=== PATIENT | female | born 1975 | race Caucasian/White ===

== ENCOUNTER 2021-12-30 09:03 | Emergency (ER) | payer MEDICAID, SELFPAY ==
[2021-12-30] VITALS (8 sets, daily range): BP systolic 178–236; BP diastolic 102–139; PULSE 93–114; RESP 15–18; TEMP 36.9–37.6; O2SAT 95–97; BMI 45.7
[2021-12-30 09:46] LABS: Add Urine Microscopic? NO; Charge for UA Resulting for Rev
[2021-12-30 09:52] LABS: Bilirubin Urine Neg (Negative); Blood Urine Neg (Negative); Glucose Urine UA Trace (Normal); Ketones Urine Negative (Negative); Leukocyte Esterase Urine Negative (Negative); Nitrate Urine Negative (Negative); Protein Urine Neg (Negative); Specific Gravity, Urine 1.005 (1.005-1.030); Urine Appearance Clear (CLEAR); Urine Color Yellow (Yellow); Urobilinogen Urine Neg (Negative); pH Urine 7 (5-7)
[2021-12-30 09:58] LABS: Amphetamines Screen Urine Negative (Negative); Barbiturates Screen Urine Negative (Negative); Benzodiazepines Screen Urine Negative (Negative); Cocaine Screen Urine Negative (Negative); Opiate Screen Urine Positive (Negative); PCP Screen Urine Negative (Negative); THC Screen Urine Negative (Negative)
--- NOTE | 2021-12-30 11:45 | W.ED.GENADLT ---
HPI - General Adult General: Chief complaint: General Medical Stated complaint: Sent from clinic for high blood pressure Time Seen by Provider: 12/30/21 11:22 History of Present Illness: Patient is a 46-year-old female with chronic opiate dependence currently on methadone presenting to the emergency room from [facility] clinic for concerns of elevated blood pressure. She was at the clinic getting intake when her blood pressure was noted to be over 240/130. Patient was then told to come to the emergency room. Patient tells me that previously she has a history of high blood pressure. 4-5 years ago Patient has not been taking any medications for her blood pressure. Patient tells me that she was diagnosed 3 years ago. Since then has not been taking any medicine. Patient denies any active chest pain, shortness breath, palpitation, nausea/vomiting fever/chills, or other focal complaints. Denies nauesea/vomiting, abdominal pain, dysuria/hematuria/polyuria, diarrhea/melena/hematochezia. Onset:chronic Duration:ongoing Location: [facility] clinic Severity:mild/moderaet Associated symptoms: Deny chest pain, dyspnea, nausea, rash, palpitations or vomiting Review of Systems Const: Denies: fever(s) or chills Eyes: Denies: change in vision ENMT: Denies: mouth pain Card: Denies: chest pain or palpitations Resp: Denies: dyspnea or non-productive cough GI: Denies: abdominal pain, nausea, vomiting or diarrhea : Denies: dysuria Musc: Denies: extremity pain Skin/Breast: Denies: rash or new lesions Neuro: Denies: weakness in extremities Psych: Reports: other (Normal mood) Abilio/Lymph: Denies: easy bruising PFSH ED PFSH: Medical History Hypertension Opiate dependence Social History Smoking and tobacco status: current every day smoker Alcohol intake: former Substance/Drug Use: unknown Physical Exam Const: COMMON NORMALS: alert HENMT: COMMON NORMALS: atraumatic HEAD & SCALP: atraumatic MOUTH: moist mucous membranes not abnormal Eye: COMMON NORMALS: EOMs intact bilaterally and conjunctivae normal CONJUNCTIVA: Yes conjunctivae normal Neck/C-Spine: COMMON NORMALS: full ROM and supple Resp: COMMON NORMALS: normal respiratory effort and clear to auscultation bilaterally AUSCULTATION: clear to auscultation bilaterally Cardio: COMMON NORMALS: regular rate RATE: regular rate GI: COMMON NORMALS: Soft to palpation and non-tender PALPATION: Yes Soft to palpation OTHER: No pain to palpation diffusely, no guarding or rebound tenderness Extremity: COMMON NORMALS: full ROM Neuro: SENSORIUM/ORIENTATION: Yes alert MOTOR EXAM: No Abnormal motor strength present and Other motor observations present (no focal motor deficits) Psych: COMMON NORMALS: speech normal SPEECH: Yes normal speech MOOD & AFFECT: Yes euthymic mood Course Vital Signs: Vital signs: Vital Signs Temperature 99.7 F H 12/30/21 09:16 Pulse Rate 104 H 12/30/21 14:15 Respiratory Rate 17 12/30/21 14:15 Blood Pressure 178/102 12/30/21 14:15 Pulse Oximetry 97 12/30/21 14:15 Oxygen Delivery Me thod 12/30/21 14:15 MDM - General Adult Medical Decision Making [46]yo patient w/ hx of opiate dependence, HTN not on any medications presenting to the ED with high BP readings x 1 day in clinic. Rest of exam including full neuro exam intact. Given presentation, history and exam, I do not suspect aortic dissection, hypertensive encephalopathy, intracranial hemorrhage, ACS, TIA/CVA, flash pulmonary edema. Intervention: Nifedipine 60mg x 1 and amlodipine 10mg [1:00pm] On reassessment, BP improved with medication. Patient continues to be symptom-free at this time. Do not suspect an emergent cause. Discussed with the patient the importance of logging BPs and following up with his PCP for adjustment of BP if BP continues to be persistently high. Given return instructions. Rx: Amlodipine 10mg QDaily PRN elevated BP I have given patient follow up with our embedded case manager to be seen by our outpatient PCP per request of patient. Patient aware of a call from our embedded case manager to schedule for appointment(s) and verbalizes understanding of the importance of following up. Based on history, exam, vital signs, and work up (as indicated) I do not suspect an ongoing emergent medical condition, and I believe the patient is safe for discharge and outpatient follow-up. The plan of care was discussed with the patient and all questions were answered. The patient agrees with the plan of care and is discharged in stable condition with verbal and written instructions, and verbalized understanding and ability to comply. I discussed the diagnosis and treatment plan at length with the patient. The patient understands signs and symptoms (including those which are new or worsening) which should prompt return to the ED. The patient is to seek prompt outpatient follow-up as noted verbally and/or in the discharge instructions. At the time of discharge the patient is well-appearing, well-hydrated, non-toxic, and assures appropriate follow-up as an outpatient. Lab Data Laboratory Results Urine Color Yellow (Yellow) 12/30/21 09:20 Urine Appearance Clear (CLEAR) 12/30/21 09:20 Urine pH 7 (5-7) 12/30/21 09:20 Ur Specific [place] 1.005 (1.005-1.030) 12/30/21 09:20 Urine Protein Neg (Negative) 12/30/21 09:20 Urine Glucose (UA) Trace (Normal) H 12/30/21 09:20 Urine Ketones Negative (Negative) 12/30/21 09:20 Urine Blood Neg (Negative) 12/30/21 09:20 Urine Nitrate Negative (Negative) 12/30/21 09:20 Urine Bilirubin Neg (Negative) 12/30/21 09:20 Urine Urobilinogen Neg mg/dL (Negative) 12/30/21 09:20 Ur Leukocyte Esterase Negative (Negative) 12/30/21 09:20 Urine Opiates Screen Positive ng/mL (Negative) H 12/30/21 09:20 Ur Barbiturates Screen Negative ng/mL (Negative) 12/30/21 09:20 Ur Phencyclidine Scrn Negative ng/mL (Negative) 12/30/21 09:20 Ur Amphetamines Screen Negative ng/mL (Negative) 12/30/21 09:20 U Benzodiazepines Scrn Negative ng/mL (Negative) 12/30/21 09:20 Urine Cocaine Screen Negative ng/mL (Negative) 12/30/21 09:20 U Marijuana (THC) Screen Negative ng/mL (Negative) 12/30/21 09:20 Discharge Plan Discharge Patient Disposition: Home Clinical Impression: Hypertension Condition: Stable Prescriptions: New amlodipine 10 mg tablet 10 mg PO DAILY 20 Days Qty: 20 0RF No Action methadone 10 mg Tablet 30 mg PO DAILY Discharge Orders: Discharge ED (Routine); Ordered 12/30/21 Ordered By: Marquis Blanchard Referrals: Gerardo Coon MD [Primary Care Provider] - Discharge Diet: Advance as tolerated Discharge Activity: Increase activity as tolerated Activity Restrictions/Additional Instructions: You need to follow-up with your primary care provider for further adjustment of your blood pressure. Your blood pressure puts you at risk for developing strokes and heart attack. Therefore it is very important for you to follow-up with this number to see if the numbers improve gradually. Because blood pressure adjustment is a gradual process, were not able to change it in 1 visit. Therefore please log your blood pressure and follow-up with your primary care provider in the next 72 hours for further adjustment of your blood pressures. Coding Level of Care Code ED Entrance Guard for yCg Fwd Exam Comprehensive
[2021-12-30] MEDS: amlodipine 10 mg Tablet PO (11:53)
[2021-12-30] MEDS: NIFEdipine ER (24 hr) 30 mg Tablet 60 MG PO (11:53)
[2021-12-30] MEDS: hyDRALAzine 25 mg Tablet PO (13:14)
[2021-12-30] MEDS: cloNIDine 0.1 mg Tablet PO (13:15)
[2021-12-30] MEDS: NIFEdipine ER (24 hr) 30 mg Tablet 90 MG PO (13:15)
--- NOTE | 2021-12-31 10:42 | DCPLANNER ---
Addendum entered by Kimberli Moreira 01/06/22 10:02: [facility] called case resource manager stating that after review of patients chart, the physician is unable to accept patient at this time. financial institution manager called patient to inform patient of this, unable to speak with patient at this time. financial institution manager left a voicemail for patient to return manager case management phone call. Original Note: financial institution manager had message to speak with patient about getting established with a primary care physician. financial institution manager spoke with patient, she stated that she would like to be seen at the [facility]. financial institution manager called the [facility], was told to fax patients information to the clinic for review. After patients information has been reviewed, clinic will call patient to schedule an appointment. financial institution manager faxed patients information to the clinic for review. financial institution manager called and updated patient on follow up appointment.
== END 2021-12-30 14:49 | disposition home or self-care (01) ==
PROVIDERS: Family Medicine; Emergency Provider Emergency Medicine; PCP Internal Medicine
DX: I10 Essential (primary) hypertension (principal); Z79.891 Long term (current) use of opiate analgesic; F17.210 Nicotine dependence, cigarettes, uncomplicated
CPT/HCPCS: 80306; 81003; 99283

== ENCOUNTER 2022-08-16 11:08 | Inpatient (IN) | payer MEDICAID, SELFPAY ==
[2022-08-16] VITALS (31 sets, daily range): BP systolic 89–173; BP diastolic 56–110; PULSE 68–111; RESP 16–33; TEMP 36.8; O2SAT 85–97; BMI 36.7
--- NOTE | 2022-08-16 11:15 | XRR_ITS ---
PROCEDURE INFORMATION: Exam: XR Chest Exam date and time: 08/16/2022 10:28 AM Age: 47 years old Clinical indication: Shortness of breath; Additional info: Hypoxia.No history of trauma or recent surgery is provided. TECHNIQUE: Imaging protocol: Radiologic exam of the chest. 1image(s) are provided. Views: 1 view. COMPARISON: No relevant prior studies available. FINDINGS: Lungs: There is some patchy opacification of the lung bases overall bilaterally. Pleural spaces: There is some minimal costophrenic angle blunting. No pneumothorax is appreciated. Heart/Mediastinum: The cardiomediastinal silhouette is borderline in size.This can be seen with central averaging as well as elroy enlargement. This can also be seen with increased volume status pulmonary hypertension and early interstitial edema. This can also be seen with cardiomegaly and/or pericardial fluid. Diaphragm: There is slight asymmetric right hemidiaphragm elevation. Bones/joints: No displaced fracture or dislocation is appreciated. Soft tissues: No radiopaque foreign body or subcutaneous emphysema is appreciated. XR/XR chest 1V portable [id number] IMPRESSION: 1. There is some prominence of the central vessels and interstitial markings suggestive of increased volume status early interstitial edema. 2. In addition there is some patchy opacification of the lung bases and could also represent some early superimposed inflammation.
--- NOTE | 2022-08-16 11:15 | ECG_ITS ---
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 Measurements Intervals [place] Rate: 84 P: 23 AK: 137 QRS: 30 QRSD: 99 T: 206 QT: 392 QTc: 466 Interpretive Statements SINUS RHYTHM POSSIBLE ANTERIOR MYOCARDIAL INFARCTION , OF INDETERMINATE AGE [30 ms Q WAVE IN V3/V4, OR R < 0.2 mV IN V4] MODERATE T-WAVE ABNORMALITY, CONSIDER LATERAL ISCHEMIA [-0.1+ mV T-WAVE IN I/aVL/V5/V6] MODERATE T-WAVE ABNORMALITY, CONSIDER INFERIOR ISCHEMIA [-0.1+ mV T-WAVE IN II/aVF] INTERPRETATION BASED ON A DEFAULT AGE OF 40 YEARS No previous ECG available for comparison Electronically Signed On 08-16-2022 23:26:49 CDT by Mario Alberto Ocampo M.D. [email or web address]
--- NOTE | 2022-08-16 11:18 | W.ED.SOB ---
HPI - SOB/Dyspnea General: Chief Complaint: Shortness of Breath/Dyspnea Stated Complaint: SOB Time Seen by Provider: 08/16/22 11:15 History of Present Illness: HPI Narrative: Patient presents to the ER with by EMS with complaints of shortness of breath. EMS states when they found the patient she was satting 65% on room air. Patient was worked up until she needed a nonrebreather mask at 15 L/min which brought her leg sat up to 91%. Patient does not appear in distress. Patient is a smoker. Patient says she has been progressively going downhill for about the last 4 days. Patient does not have a history of cardiac or respiratory problems. Patient does have anxiety and gets into panic attacks but she is not in one now. MD elicited complaint: shortness of breath Onset (ago): day(s) (4 days ago) Timing: constant and progressively worsening Severity: severe Exacerbating factors: exertion Relieving factors: oxygen Treatment prior to arrival: oxygen (15 L per nonrebreather per EMS) Review of Systems General: Reports: 10 or more systems reviewed and unremarkable except in HPI and below PFSH ED PFSH: Medical History Hypertension Opiate dependence Surgical History (Updated 08/16/22 @ 15:22 by Gonzalo Doyle MD) No significant past surgical history Family History (Updated 08/16/22 @ 15:22 by Gonzalo Doyle MD) Other CAD (coronary artery disease) Social History Smoking and tobacco status: current every day smoker Alcohol intake: former Substance/Drug Use: unknown Physical Exam Const: COMMON NORMALS: no acute distress, patient oriented x3, no limitations, alert and well nourished GENERAL APPEARANCE: not in distress NUTRITIONAL APPEARANCE: obese HENMT: COMMON NORMALS: normocephalic, atraumatic, hearing grossly normal bilaterally, external ears normal, Normal external nose present and moist oral mucous membranes HEAD & SCALP: normocephalic and atraumatic NOSE: Normal external nose present EXTERNAL EAR: Yes external ears normal Eye: COMMON NORMALS: Equal, round and reactive pupils present, EOMs intact bilaterally, conjunctivae normal and no scleral icterus CONJUNCTIVA: Yes conjunctivae normal PUPIL: Yes Equal, round and reactive pupils present Neck/C-Spine: COMMON NORMALS: full ROM, no lymphadenopathy, supple, no meningeal signs, no JVD and Thyroid normal THYROID: Thyroid normal Lymph: LYMPHATIC: no lymphadenopathy noted Chest: COMMONS NORMALS: normal inspection of the chest and normal palpation of entire chest wall Resp: COMMON NORMALS: normal respiratory effort, No retractions and No use of accessory muscles AUSCULTATION: wheezes (Minimal occasional wheeze in right lung otherwise clear) Cardio: COMMON NORMALS: no JVD, regular rate, regular rhythm, S1 normal heart sound present, S2 normal heart sound present, No gallops present (Cardio), No clicks present (Cardio), No murmurs present (Cardio) and No rub (Cardio) RATE: regular rate RHYTHM: regular rhythm HEART SOUNDS: S1 normal heart sound present and S2 normal heart sound present GI: COMMON NORMALS: Normal to inspection, nondistended, normoactive bowel sounds present, Soft to palpation, non-tender, No hepatosplenomegaly present and no masses PALPATION: Yes Soft to palpation and Yes No hepatosplenomegaly present : COMMON NORMALS: Yes no CVA tenderness BLADDER/KIDNEY EXAM: Yes no CVA tenderness Back/Pelvis: COMMON NORMALS: no CVA tenderness Extremity: COMMON NORMALS: normal to inspection and no pedal edema Neuro: COMMON NORMALS: patient oriented x3 SENSORIUM/ORIENTATION: Yes alert MENINGEAL SIGNS: Yes no meningeal signs Course Vital Signs: Vital signs: Vital Signs Temperature 98.3 F 08/16/22 11:09 Pulse Rate 81 08/17/22 06:30 Respiratory Rate 20 H 08/17/22 06:30 Blood Pressure 162/74 08/17/22 06:30 Pulse Oximetry 96 08/17/22 06:30 Oxygen Delivery Me thod BiPAP 08/17/22 06:30 Oxygen Flow Rate 40 08/16/22 18:06 Fraction of Inspir ed Oxygen 90 08/17/22 02:58 MDM - SOB/Dyspnea Medical Decision Making Patient presents to the ER by EMS on a nonrebreather 15 L/min satting 80. Patient was tried on BiPAP which she would not tolerate. Patient was placed on high flow nasal cannula per RT. Patient was given 1 DuoNeb breathing treatment, lab work x-ray EKG CT were obtained. This showed a white count of 24,000 a D-dimer of 4.1 pH 7.47 PCO2 of 36.4 PO2 of 58 potassium of 2.6 BUN/creatinine of 26 and 0.8 lactic acid of 4.6 BNP of 2881 troponin initially about 10 to hour troponin of 12.1 for delta of 12.31 chest x-ray was read off as some prominence of the central vessels suggesting of increased volume status early interstitial edema chest CTA was obtained which showed no central pulmonary thromboembolism but groundglass attenuation throughout the hemithoraces could be seen with edema and possible atypical inflammatory process. Dr. Doyle was consulted he agreed for inpatient admission for further evaluation and treatment. Patient will be placed in the ICU since she is on high flow nasal cannula. We will give the patient Lasix 60 mg IV. Differential Diagnosis Unlikely acute exacerbation of chronic obstructive airways disease, congestive heart failure, community acquired pneumonia, asthma with exacerbation or pulmonary embolism Medical Records I reviewed the patient's medical records. Lab Data I reviewed the patient's lab results. 08/17/22 03:00 08/17/22 03:00 Labs/Radiology: Radiology Impressions Chest X-Ray 08/16/22 11:15 IMPRESSION: 1. There is some prominence of the central vessels and interstitial markings suggestive of increased volume status early interstitial edema. 2. In addition there is some patchy opacification of the lung bases and could also represent some early superimposed inflammation. Chest CTA 08/16/22 12:11 IMPRESSION: 1. No central pulmonary thromboembolism is appreciated. 2. There is diffuse heterogeneity and ground-glass attenuation overall throughout the hemithoraces with mid to lower lung distribution predominance. This could be seen with edema. Some superimposed processes including secondary as well as atypical inflammation could also present in this fashion with some patchy and slightly nodular coalescence for example adjacent to the left fissure. Would recommend comparison any previous older CT if clinically available versus follow-up after clinical therapy to evaluate for interval change or stability given the asymmetric nodular coalescence more so on the left. 3. There are abnormally enlarged mediastinal and hilar lymph nodes demonstrated overall throughout. 4. There is some hepatic steatosis present along with trace gallbladder sludge. There is also subtle wall thickening suggested about the gallbladder as well as borderline appearance of the bile ducts although incompletely included. Some early gallbladder inflammation as well as hepatic disease could also present in this fashion. Consider right upper quadrant ultrasound as well as associated biliary and hepatic profile studies. 5. There is some cardiac chamber overall left more so than right. Consider echocardiography. Laboratory Results WBC 24.4 10^3/uL (4.0-10.0) H 08/16/22 11:25 RBC 4.71 10^6/uL (4.1-5.3) 08/16/22 11:25 Hgb 14.0 g/dL (11.5-15.3) 08/16/22 11:25 Hct 41.8 % (37.0-47.0) 08/16/22 11:25 MCV 88.7 fl (81-99) 08/16/22 11:25 MCH 29.7 pg (28.0-34.0) 08/16/22 11:25 MCHC 33.5 g/dL (30.0-36.0) 08/16/22 11:25 RDW 13.5 % (12.1-15.1) 08/16/22 11:25 Plt Count 314 10^3/cmm (130-400) 08/16/22 11:25 MPV 11.8 fL (7.4-10.4) H 08/16/22 11:25 Neut % (Auto) 79.1 % 08/16/22 11:25 Lymph % (Auto) 15.7 % 08/16/22 11:25 [place] % (Auto) 4.1 % 08/16/22 11:25 Eos % (Auto) 0.1 % 08/16/22 11:25 Baso % (Auto) 0.5 % 08/16/22 11:25 Neut # (Auto) 19.31 10^3/uL (1.8-7.7) H 08/16/22 11:25 Lymph # (Auto) 3.8 10^3/uL (0.8-4.8) 08/16/22 11:25 [place] # (Auto) 1.0 10^3/uL (0.2-0.9) H 08/16/22 11:25 Eos # (Auto) 0.0 10^3/uL (0.0-0.8) 08/16/22 11:25 Baso # (Auto) 0.1 10^3/uL (0.0-0.1) 08/16/22 11:25 Nucleated RBC % (auto) 0.1 % 08/16/22 11:25 Nucleated RBCs # 0.0 /100WBC 08/16/22 11:25 D-Dimer 4.11 ug/mIFEU (0-0.59) H 08/16/22 11:25 Specimen Type Arterial 08/16/22 11:21 Sample Site Radial, left 08/16/22 11:21 ABG pH 7.47 (7.35-7.45) H 08/16/22 11:21 ABG pCO2 36.4 mmHg (35-45) 08/16/22 11:21 ABG pO2 58.5 mmHg (80.0-100.0) L 08/16/22 11:21 ABG HCO3 26.6 mmol/L (22-26) H 08/16/22 11:21 ABG Base Excess 3.1 mmol/L (-2.0-2.0) H 08/16/22 11:21 [place] Test Pos 08/16/22 11:21 Hematocrit 46.7 % (37-47) 08/16/22 11:21 Hgb O2 Saturation 88.3 % (95-100) L 08/16/22 11:21 Carboxyhemoglobin 1.7 %THgb (0.4-20.1) 08/16/22 11:21 Methemoglobin 0.2 % (0.4-1.5) L 08/16/22 11:21 Total Hemoglobin 15.2 g/dL (12-16) 08/16/22 11:21 O2 Delivery Device Nrb 08/16/22 11:21 FiO2 100.0 % 08/16/22 11:21 Deck Worker ID glc 08/16/22 11:21 Sodium 141 mmol/L (136-145) 08/16/22 11:25 Potassium 2.6 mmol/L (3.5-5.1) L* 08/16/22 11:25 Chloride 102 mmol/L (98-107) 08/16/22 11:25 Carbon Dioxide 22 mmol/L (22-29) 08/16/22 11:25 Anion Gap 19.6 (5-19) H 08/16/22 11:25 BUN 26 mg/dL (6-20) H 08/16/22 11:25 Creatinine 0.8 mg/dL (0.5-0.9) 08/16/22 11:25 GFR Calculation 76.2 mL/min (90-130) L 08/16/22 11:25 Glucose 163 mg/dL (65-115) H 08/16/22 11:25 Estimat Average Glucose 134 08/16/22 11:25 Hemoglobin A1c 6.3 % (4.0-6.0) H 08/16/22 11:25 Calculated Osmolality 300 mOsm/kg (285-295) H 08/16/22 11:25 Lactic Acid 4.6 mmol/L (0.5-2.2) H* 08/16/22 11:25 Lactic Acid (Sepsis) 3.9 mmol/L (0.5-2.2) H 08/16/22 13:34 Calcium 7.8 mg/dL (8.5-10.5) L 08/16/22 11:25 Magnesium 2.2 mg/dL (1.7-2.3) 08/16/22 11:25 Total Bilirubin 0.8 mg/dL (0.15-1.2) 08/16/22 11:25 AST 33 U/L (0-32) H 08/16/22 11:25 ALT 17 U/L (0-33) 08/16/22 11:25 Alkaline Phosphatase 280 U/L (35-105) H 08/16/22 11:25 Troponin T Baseline 10 ng/L (0-10) 08/16/22 11:25 Troponin T 120 Minute 12.31 ng/L (0-10) H 08/16/22 13:34 Delta Troponin T 2.31 ABS# (0-10) 08/16/22 13:34 NT-Pro-B Natriuret Pep 2881 pg/mL (0-125) H 08/16/22 11:25 Total Protein 6.7 g/dL (6.6-8.7) 08/16/22 11:25 Albumin 2.3 g/dL (3.5-5.2) L 08/16/22 11:25 Globulin 4.4 g/dL (1.3-4.6) 08/16/22 11:25 Procalcitonin 2.22 ng/mL (0-0.5) H 08/16/22 11:25 TSH 2.52 uIU/mL (0.27-4.20) 08/16/22 11:25 Nasal Influ A H1 2009 PCR Not detected (NOT DETECT) 08/16/22 11:36 Adenovirus (PCR) Not detected (NOT DETECT) 08/16/22 11:36 C. pneumoniae DNA (PCR) Not detected (NOT DETECT) 08/16/22 11:36 Coronavirus 229E (PCR) Not detected (NOT DETECT) 08/16/22 11:36 Human Metapneumovir PCR Not detected (NOT DETECT) 08/16/22 11:36 Influenza A (H1) PCR Not detected (NOT DETECT) 08/16/22 11:36 Influenza A (H3) PCR Not detected (NOT DETECT) 08/16/22 11:36 Influenza Type A (PCR) Not detected (NOT DETECT) 08/16/22 11:36 Influenza Type B (PCR) Not detected (NOT DETECT) 08/16/22 11:36 M. pneumoniae (PCR) Not detected (NOT DETECT) 08/16/22 11:36 Parainfluenza 1 (PCR) Not detected (NOT DETECT) 08/16/22 11:36 Parainfluenza 2 (PCR) Not detected (NOT DETECT) 08/16/22 11:36 Parainfluenza 3 (PCR) Not detected (NOT DETECT) 08/16/22 11:36 Parainfluenza 4 (PCR) Not detected (NOT DETECT) 08/16/22 11:36 RSV Type A (PCR) Not detected (NOT DETECT) 08/16/22 11:36 RSV Type B (PCR) Not detected (NOT DETECT) 08/16/22 11:36 Entero/Rhino (PCR) Not detected (NOT DETECT) 08/16/22 11:36 SARS-CoV-2 (PCR) Not detected (NOT DETECT) 08/16/22 11:36 EKG Data EKG 1: I personally reviewed and interpreted this EKG as follows: EKG Interpretation Date: 08/16/22 EKG interpretation time: 11:19 Prior EKG tracings: not available for review Interpretation: EKG showed ventricular rhythm of 84 beats minute, PA interval 137, QRS duration 99, QTc 433, normal sinus rhythm, moderate T wave abnormalities negative T waves in 1 aVL V5 V6 2 aVF EKG 2: I personally reviewed and interpreted this EKG as follows: EKG Interpretation Date: 08/16/22 EKG interpretation time: 13:34 Prior EKG tracings: available for review Interpretation: EKG showed normal sinus rhythm with a ventricular rate of 80 bpm, PA interval 161 URS duration 105, QTc of 435, incomplete right bundle branch block, nonspecific T wave abnormality Discharge Plan Discharge Patient Disposition: Admitted As Inpatient Admit Provider: Gonzalo Doyle Clinical Impression: Acute respiratory failure with hypoxia, Elevated lactic acid level, Acute hypokalemia CHF (congestive heart failure) Qualifiers: Heart failure type: unspecified Heart failure chronicity: unspecified Qualified Code(s): I50.9 - Heart failure, unspecified Pulmonary edema Qualifiers: Chronicity: acute Qualified Code(s): J81.0 - Acute pulmonary edema Condition: Stable Coding Level of Care Code ED Family Preservation Officer for Josue Bray
[2022-08-16 11:31] LABS: ABG PCO2 36.4 mmHg (35-45); ABG PH Result 7.47 (7.35-7.45); Arterial Blood Gas Hematocrit 46.7 % (37-47); Base Excess ABG 3.1 mmol/L (-2.0-2.0); Blood Gas Allen Test Pos; Blood Gas Operator Identificat glc; Blood Gas Sample Site Radial, left; Blood Gas Sample Type Arterial; Carboxyhemoglobin 1.7 %THgb (0.4-20.1); HCO3 ABG 26.6 mmol/L (22-26); HGB O2 Sat 88.3 % (95-100); Methemoglobin 0.2 % (0.4-1.5); Oxygen Device NRB; PO2 ABG 58.5 mmHg (80.0-100.0); Total Hemoglobin 15.2 g/dL (12-16)
[2022-08-16 11:32] LABS: Basophils # 0.1 10^3/uL (0.0-0.1); Basophils % 0.5 %; Eosinophils % 0.1 %; Hematocrit 41.8 % (37.0-47.0); Lymphocytes # 3.8 10^3/uL (0.8-4.8); Lymphocytes % 15.7 %; Mean Corpuscular HGB Conc 33.5 g/dL (30.0-36.0); Mean Corpuscular Hemoglobin 29.7 pg (28.0-34.0); Mean Corpuscular Volume 88.7 fl (81-99); Mean Platelet Volume 11.8 fL (7.4-10.4); Monocytes % 4.1 %; Neutrophils # 19.31 10^3/uL (1.8-7.7); Neutrophils % 79.1 %; Nucleated Red Blood Cells % 0.1 %; Platelet Count 314 10^3/cmm (130-400); Red Blood Count 4.71 10^6/uL (4.1-5.3); Red Cell Distribution Width 13.5 % (12.1-15.1); White Blood Count 24.4 10^3/uL (4.0-10.0)
[2022-08-16 11:56] LABS: Troponin(5th) Baseline 10 ng/L (0-10)
[2022-08-16 12:05] LABS: Alanine Aminotransferase 17 U/L (0-33); Albumin Level 2.3 g/dL (3.5-5.2); Alkaline Phosphatase 280 U/L (35-105); Anion Gap 19.6 (5-19); Aspartate Amino Transferase 33 U/L (0-32); Blood Urea Nitrogen 26 mg/dL (6-20); Calcium 7.8 mg/dL (8.5-10.5); Carbon Dioxide 22 mmol/L (22-29); Chloride 102 mmol/L (98-107); Globulin 4.4 g/dL (1.3-4.6); Glomerular Filtration Rate 76.2 mL/min (90-130); Glucose 163 mg/dL (65-115); Magnesium 2.2 mg/dL (1.7-2.3); NT Pro B Type Natriuretic Pept 2881 pg/mL (0-125); Osmolality Calculated 300 mOsm/kg (285-295); Sodium 141 mmol/L (136-145); Total Bilirubin 0.8 mg/dL (0.15-1.2); Total Protein 6.7 g/dL (6.6-8.7)
[2022-08-16 12:07] LABS: D Dimer 4.11 ug/mIFEU (0-0.59); Lactic Sepsis W/Reflex 4.6 mmol/L (0.5-2.2)
[2022-08-16 12:08] LABS: Potassium 2.6 mmol/L (3.5-5.1)
[2022-08-16 12:11] LABS: Procalcitonin 2.22 ng/mL (0-0.5)
--- NOTE | 2022-08-16 12:11 | CTR_ITS ---
PROCEDURE INFORMATION: Exam: CTA Chest With Contrast Exam date and time: 08/16/2022 1:15 PM Age: 47 years old Clinical indication: Abnormal findings; Abnormal diagnostic tests; Elevated d-dimer; Cough and shortness of breath; Additional info: Hypoxia, elevated d dimer TECHNIQUE: Imaging protocol: Computed tomographic angiography of the chest with contrast. Exam focused on the arteries. 899image(s) are provided. 3D rendering (Not supervised by radiologist): MIP and/or 3D reconstructed images were created by the technologist. Radiation optimization: All CT scans at this facility use at least one of these dose optimization techniques: automated exposure control; mA and/or kV adjustment per patient size (includes targeted exams where dose is matched to clinical indication); or iterative reconstruction. Contrast material: OMNI 350; Contrast volume: 100 ml; Contrast route: INTRAVENOUS (IV); Other technique: Axial images are available with sagittal and coronal reconstruction views. Automated dose exposure control is utilized. The DLP is 452.20. REPORTING DATA: Count of CT and Cardiac NM exams in prior 12 months: This patient has received 0 known CTs and 0 known cardiac nuclear medicine studies in the 12 months prior to the current study. COMPARISON: CR (CHEST, ) 08/16/2022 10:[address] is currently available. RADIATION DOSE METRICS: Total DLP (mGy-cm): 452.2 FINDINGS: Pulmonary arteries: No large central pulmonary arterial filling defect is appreciated. Subsegmental evaluation is motion limited. Aorta: The aortic contours are unremarkable. No aneurysmal dilatation, intimal irregularity or periaortic fluid collections are appreciated. Thyroid: There is some slight thyroid heterogeneity enlargement. Lungs: There is heterogeneous overall attenuation of the parenchyma along with some ground-glass attenuation with mid to lower lung zone distribution predominance. There is some patchy coalescence for example about the left fissure.No lobar consolidation is appreciated. Pleural spaces: There is some trace pleural fluid. No pneumothorax is appreciated. Heart: There is some trace pericardial and recess fluid likely physiologic. There is some borderline cardiac chamber size appearance overall left more so than right. Lymph nodes: There are some axillary lymph nodes present bilaterally with predominantly subcentimeter short axis. There are some supraclavicular lower neck lymph nodes for example on the right measuring approximally 6 x 7 mm. There are some borderline periportal lymph nodes. There are enlarged mediastinal and hilar lymph nodes overall for example including retrocaval paratracheal at approximately 1.8 x 1.6 cm as well as subcarinal measuring approximally 2.8 x 1.8 cm. Liver: There appears to be some mild hepatic steatosis. Gallbladder and bile ducts: There is some trace gallbladder sludge with slightly patulous overall appearance. This is incompletely included. There appears to be some subtle periportal tracking along with the common bile duct measuring approximately 1 cm. Adrenal glands: There is some slight adrenal hypertrophy. Kidneys and ureters: There appears to be some early excreted contrast of the renal level. Stomach and bowel: There is a small sliding-type hiatal hernia demonstrated with slight gastroesophageal fold thickening. Intraperitoneal space: There is an otherwise unremarkable appearance of the included intraperitoneal space, upper abdominal structures. Bones/joints: Osseous alignment is maintained.No interval displaced fracture or dislocation is appreciated. There is some thoracic spondylosis present. Soft tissues: No radiopaque foreign body or subcutaneous emphysema is appreciated. Other findings: There is some motion artifact present. No other significant interval changes are appreciated. CT/CT angio chest PE protcl [id number] IMPRESSION: 1. No central pulmonary thromboembolism is appreciated. 2. There is diffuse heterogeneity and ground-glass attenuation overall throughout the hemithoraces with mid to lower lung distribution predominance. This could be seen with edema. Some superimposed processes including secondary as well as atypical inflammation could also present in this fashion with some patchy and slightly nodular coalescence for example adjacent to the left fissure. Would recommend comparison any previous older CT if clinically available versus follow-up after clinical therapy to evaluate for interval change or stability given the asymmetric nodular coalescence more so on the left. 3. There are abnormally enlarged mediastinal and hilar lymph nodes demonstrated overall throughout. 4. There is some hepatic steatosis present along with trace gallbladder sludge. There is also subtle wall thickening suggested about the gallbladder as well as borderline appearance of the bile ducts although incompletely included. Some early gallbladder inflammation as well as hepatic disease could also present in this fashion. Consider right upper quadrant ultrasound as well as associated biliary and hepatic profile studies. 5. There is some cardiac chamber overall left more so than right. Consider echocardiography.
[2022-08-16] MEDS: potassium chloride ER 20 mEq Tablet 40 MEQ PO (12:22)
[2022-08-16] MEDS: sodium chloride 0.9% 1,000 ML 999 ML IV (12:22)
--- NOTE | 2022-08-16 13:15 | ECG_ITS ---
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 Measurements Intervals [place] Rate: 80 P: 60 PA: 161 QRS: 16 QRSD: 105 T: 31 QT: 400 QTc: 461 Interpretive Statements SINUS RHYTHM INCOMPLETE RIGHT BUNDLE BRANCH BLOCK [90+ ms QRS DURATION, TERMINAL R IN V1/V2, 40+ ms S IN I/aVL/V4/V5/V6] NONSPECIFIC T-WAVE ABNORMALITY Compared to ECG 08/16/2022 11:19:48 Incomplete right bundle-branch block now present Myocardial infarct finding no longer present Possible ischemia no longer present T-wave abnormality still present Electronically Signed On 08-17-2022 8:30:40 CDT by Mario Alberto Ocampo M.D. [id number]
[2022-08-16 13:16] LABS: Reflex Lactate Order REFLEX LACTIC ORDERD
[2022-08-16] MEDS: iohexol 350 mg/mL 500 mL Btl (per mL) IV (13:22)
[2022-08-16 13:59] LABS: Adenovirus Not Detected (NOT DETECT); Chlamydia Pneumoniae Not Detected (NOT DETECT); Coronavirus 229E,HKU1,NL63,OC4 Not Detected (NOT DETECT); Human Metapneumovirus Not Detected (NOT DETECT); Human Rhinovirus/Enterovirus Not Detected (NOT DETECT); Influenza A Not Detected (NOT DETECT); Influenza A H1 Not Detected (NOT DETECT); Influenza A H1-2009 Not Detected (NOT DETECT); Influenza A H3 Not Detected (NOT DETECT); Influenza B Not Detected (NOT DETECT); Mycoplasma Pneumoniae Not Detected (NOT DETECT); Parainfluenza Virus Type 1 Not Detected (NOT DETECT); Parainfluenza Virus Type 2 Not Detected (NOT DETECT); Parainfluenza Virus Type 3 Not Detected (NOT DETECT); Parainfluenza Virus Type 4 Not Detected (NOT DETECT); Respiratory Syncytial Virus A Not Detected (NOT DETECT); Respiratory Syncytial Virus B Not Detected (NOT DETECT); SARS-COV-2 Not Detected (NOT DETECT)
[2022-08-16 14:06] LABS: Lactic Acid level (Lactate) 3.9 mmol/L (0.5-2.2)
[2022-08-16 14:07] LABS: Troponin 5 2HR 12.31 ng/L (0-10); Troponin 5 2HR Delta 2.31 ABS# (0-10)
--- NOTE | 2022-08-16 14:58 | PM.HP ---
Providers/Chief Complaint Primary Care Provider: Gerardo Coon MD Chief Complaint: SOB History of Present Illness Lavern Allen is a 47 year old female no significant past medical history other than hypertension came in with chief complaint of worsening of shortness of breath. Patient is stating her symptoms started 4 days ago, it started with apnea and PND which gradually got worse to the point that she started sleeping in a recliner, she snores a lot, is not sure whether she was treated for sleep apnea, follows up with PCP for her hypertension, she is denying chest pain, she is also endorsing fever 100.3 at home, nonproductive cough, she has not noticed swelling of her legs. EMS was called when she was short of breath current to the report she was saturating 60% on room air she was put on nonrebreather mask, in the ER she was put on high flow nasal cannula 90% she is saturating 90% No active chest pain or shortness of breath She has received Lasix after getting fluids, She CT imaging consistent with pulm edema, no signs of PE no signs of consolidation Review of Systems Const: Reports: fever(s) and chills Eyes: Denies: change in vision ENMT: Denies: throat pain Card: Reports: edema Resp: Reports: dyspnea GI: Denies: abdominal pain : Denies: flank pain Musc: Denies: neck pain or extremity swelling Skin/Breast: Denies: rash Neuro: Denies: headache(s) Psych: Reports: anxiety Endo: Denies: polyuria Abilio/Lymph: Denies: easy bruising All/Imm: Denies: urticaria Medications/Allergies Home Medications Medication Instructions Recorded Confirmed Last Taken Type methadone 10 mg tablet 5 mg PO DAILY 12/30/21 08/16/22 08/15/22 History amlodipine 10 mg tablet 10 mg PO DAILY 08/16/22 08/16/22 08/16/22 History bisoprolol 10 1 tab PO DAILY 08/16/22 08/16/22 08/16/22 History mg-hydrochlorothiazide 6.25 mg tablet hydroxyzine HCl 50 mg tablet 50 mg PO TID PRN Anxiety 08/16/22 08/16/22 Unknown History methadone 40 mg soluble tablet 80 mg PO DAILY 08/16/22 08/16/22 08/15/22 History sertraline 50 mg tablet 50 mg PO DAILY 08/16/22 08/16/22 08/15/22 History Allergies Allergy/AdvReac Type Severity Reaction Status Date / Time Penicillins Allergy Intermediate ALGY-Anaphy Verified 08/16/22 11:14 laxis PFSH Acute PFSH: Medical History Hypertension Opiate dependence Surgical History (Updated 08/16/22 @ 15:22 by Gonzalo Doyle MD) No significant past surgical history Family History (Updated 08/16/22 @ 15:22 by Gonzalo Doyle MD) Other CAD (coronary artery disease) Social History Smoking and tobacco status: current every day smoker Alcohol intake: former Substance/Drug Use: unknown Vitals/I&O/Wt Last Vital Signs Temp 98.3 F 08/16/22 11:09 Pulse 74 08/16/22 14:14 Resp 29 H 08/16/22 14:14 BP 100/56 08/16/22 14:14 Pulse Ox 87 L 08/16/22 14:14 O2 Del Method High Flow Nasal Cannula 08/16/22 14:14 O2 Flow Rate 50 08/16/22 13:29 FiO2 80 08/16/22 13:29 Weight last 48 hrs Weight 91.172 kg Physical Exam Narrative: Patient is on heated high flow 90% No active chest pain or shortness of breath Saturating 90% Family at the bedside Lower extremity no edema Dry skin S1, S2 with faint murmur noted No active wheezing noted Mild rhonchi noted at the base of the lungs Abdomen soft distended Obesity S1, S2 Nonfocal neuro exam Data 08/16/22 11:25 08/16/22 11:25 Micro: Microbiology 08/16/22 12:20 Blood Culture - Preliminary Blood SPECIMEN COLLECTED 08/16/22 12:20 Blood Culture - Preliminary Blood SPECIMEN COLLECTED A&P Assessment and plan (1) CHF (congestive heart failure): Qualifiers: Heart failure chronicity: unspecified Heart failure type: unspecified Qualified Code(s): I50.9 - Heart failure, unspecified (2) Pulmonary edema: Qualifiers: Chronicity: acute Qualified Code(s): J81.0 - Acute pulmonary edema (3) Acute respiratory failure with hypoxia: (4) Elevated lactic acid level: (5) Acute hypokalemia: Plan Acute CHF exacerbation EF is unknown We will request echo We will give her Lasix She has received fluids in the ER Acute hypoxia related to CHF exacerbation I would recommend BiPAP in case of further worsening For now continue high flow Continue IV Lasix CT chest rule out PE, no acute signs of consolidation Her lactic acidemia is related to increased work of breathing because of shortness of breath White count is stress leukemoid reaction No fever at this point I would not treat her as sepsis for now Hypertension history Optimize antihypertensive regimen Hypokalemia: Treated Patient is opiate dependent I will continue her methadone Full code Cardiac diet Prophylaxis heparin D-dimer is 4.1 No signs of PE, No signs of pneumonia At this point I am not sure why her D-dimer is high, no previous history of malignancy Attestations Medical Necessity Statement*: More than 2 midnights anticipate Diagnoses CHF (congestive heart failure) I50.9 Heart failure chronicity: unspecified Heart failure type: unspecified Pulmonary edema J81.0 Chronicity: acute Acute respiratory failure with hypoxia J96.01 Elevated lactic acid level R79.89 Acute hypokalemia E87.6
[2022-08-16] MEDS: FUROsemide 10 mg/mL SDV 10mL 60 MG IVP ×2 (15:02→18:21)
[2022-08-16 15:43] LABS: Urine Appearance Hazy (CLEAR); Urine Color Yellow (Yellow)
[2022-08-16 15:44] LABS: Add Urine Microscopic? YES; Bilirubin Urine Neg (Negative); Blood Urine 3+ (Negative); Glucose Urine UA Norm (Normal); Ketones Urine Negative (Negative); Leukocyte Esterase Urine Negative (Negative); Nitrate Urine Negative (Negative); Protein Urine Trace (Negative); Urobilinogen Urine 4 mg/dL (Negative); pH Urine 5 (5-7)
[2022-08-16] MEDS: lidocaine 1% 5 ML in potassium chloride premix 100 ML 25 ML IV (15:45)
[2022-08-16 15:46] LABS: Bacteria Urine 1+ /hpf; Mucus Urine TRACE /hpf; RBC Urine 0-4 /hpf (0-2); Squamous Epithelial Cell Urine 15-25 /hpf (0-5)
[2022-08-16 15:47] LABS: Add Urine Culture? No
--- NOTE | 2022-08-16 16:41 | USCV_ITS ---
Lavern Allen Age: 47 Gender: F : 1975 Exam Date: 08/16/2022 19:27 Ordering Phys: Gonzalo Doyle MD Technologist: ADOLFO Exam Location: [facility] [place] Indication: hypoxia, dyspnea. Long-term smoker continues smoking. No history of cardiac intervention per patient. BP: 170 / 82 HR: 85 Rhythm: Sinus Technical Quality: Adequate MEASUREMENTS (Male / Female) Normal Values 2D ECHO LV Diastolic Diameter PLAX 4.2 cm 4.2 - 5.9 / 3.9 - 5.3 cm LV Systolic Diameter PLAX 2.9 cm IVS Diastolic Thickness 1.0 cm 0.6 - 1.0 / 0.6 - 0.9 cm IVS Systolic Thickness 1.3 cm LVPW Diastolic Thickness 1.1 cm 0.6 - 1.0 / 0.6 - 0.9 cm LVPW Systolic Thickness 1.1 cm LVOT Diameter 1.7 cm LV Ejection Fraction 2D Teich 60.4 % LV Ejection Fraction MOD 2C 66.2 % LV Ejection Fraction 2C AL 67.7 % LA Diameter 3.7 cm LA Width 3.5 cm LA Height 5.3 cm RA Width 2.6 cm RA Height 4.5 cm Aorta at Sinotubular Diameter 2.5 cm IVC Diameter 1.3 cm M-MODE Aortic Annulus Diameter 2.4 cm LA Ao Ratio MM 1.5 MV E Point Septal Separation 0.5 cm DOPPLER AV Peak Velocity 223.0 cm/s LVOT Peak Velocity 146.0 cm/s AV Area Cont Eq vti 1.5 cm squared AV Area Cont Eq pk 1.5 cm squared MV Peak Velocity 137.0 cm/s MV Area PHT 1.5 cm squared Mitral E to A Ratio 0.8 MV E' Velocity 46.5 cm/s Mitral E to MV E' Ratio 10.8 Mitral E to LV E' Lateral Ratio 10.8 Mitral E to LV E' Septal Ratio 10.8 TV Peak E Velocity 51.3 cm/s PV Peak Velocity 139.0 cm/s RV Acceleration Time 0.1 s RV Ejection Time 0.3 s RV AcT/ET 0.4 FINDINGS Left Ventricle Left ventricle is normal in size. LV systolic function is normal with EF of 60 to 65%. No regional wall motion abnormalities are seen. Right Ventricle Normal in size and function Right Atrium Normal in size Left Atrium Normal in size Mitral Valve Structurally normal mitral valve. Mild mitral regurgitation. Aortic Valve Structurally normal aortic valve. Mild aortic stenosis with aortic valve area of 1.5 cm squared and mean gradient across aortic valve of 10 mmHg. Tricuspid Valve Mild tricuspid regurgitation. Insufficient TR jet to calculate RVSP. Pulmonic Valve Not well-visualized Pericardium Normal Aorta Normal in size IVC Appears to normal CONCLUSIONS LV systolic function is normal with EF of 60 to 65%. Mild mitral regurgitation Mild aortic stenosis Mild tricuspid regurgitation No comparison studies are available Mario Alberto Ocampo MD (Electronically Signed) Final Date: 17 Aug 2022 12:19 S
[2022-08-16] MEDS: heparin 5,000 unit/mL INJ 1 mL 5000 UNIT SUBCUT (16:54)
[2022-08-16] MEDS: hyDROXYzine 25 mg Capsule 50 MG PO ×2 (17:29→20:23)
[2022-08-16 17:36] LABS: Estmated Average Glucose 134; Hemoglobin A1C 6.3 % (4.0-6.0)
[2022-08-16 17:49] LABS: Thyroid Stimulating Hormone 2.52 uIU/mL (0.27-4.20)
--- NOTE | 2022-08-16 18:02 | ECG_ITS ---
[facility] Test Date: 2022-08-16 Pat Name: Lavern Allen Department: Room: ICU10 Gender: Female [employer] Guide: MIRIAM: 1975 Requested By: Rommel Rodriguez Order Number: [id number] Carson MD: Mario Alberto Ocampo M.D. Measurements Intervals [place] Rate: 84 P: 49 AK: 128 QRS: 23 QRSD: 96 T: 269 QT: 384 QTc: 456 Interpretive Statements SINUS RHYTHM POSSIBLE ANTERIOR MYOCARDIAL INFARCTION , OF INDETERMINATE AGE [30 ms Q WAVE IN V3/V4, OR R < 0.2 mV IN V4] Compared to ECG 08/16/2022 13:34:29 Myocardial infarct finding now present Incomplete right bundle-branch block no longer present T-wave abnormality no longer present Electronically Signed On 08-17-2022 8:29:58 CDT by Mario Alberto Ocampo M.D. [id number]
[2022-08-16 18:57] LABS: Troponin 5 6HR 13.42 ng/L (0-10)
[2022-08-16 19:07] LABS: Troponin 5 6HR Delta 3.42 ng/L (0-12)
[2022-08-16] MEDS: acetaminophen 500 mg Tablet PO (20:23)
--- NOTE | 2022-08-16 22:08 | PC.NURSE ---
Low O2-BIPAP applied: SpO2 in the high 80's, increased work of breathing noted. Christiano from [facility] notified. Explained the purpose of BIPAP to the pt and answered all questions. Pt is agreeable to wear BIPAP. Christiano from [facility] came down and set up and initiate BIPAP use.
[2022-08-17] VITALS (52 sets, daily range): BP systolic 90–165; BP diastolic 48–105; PULSE 68–92; RESP 14–30; TEMP 37.1–37.7; O2SAT 85–99
[2022-08-17 03:30] LABS: ABG PCO2 46.3 mmHg (35-45); ABG PH Result 7.44 (7.35-7.45); Arterial Blood Gas Hematocrit 42.4 % (37-47); Base Excess ABG 6.3 mmol/L (-2.0-2.0); Blood Gas Sample Site Brachial, left; Blood Gas Sample Type Arterial; HCO3 ABG 31.5 mmol/L (22-26); Oxygen Device BIPAP
[2022-08-17 03:50] LABS: Basophils # 0.1 10^3/uL (0.0-0.1); Basophils % 0.4 %; Eosinophils # 0.1 10^3/uL (0.0-0.8); Eosinophils % 0.5 %; Hematocrit 39.1 % (37.0-47.0); Hemoglobin 13.3 g/dL (11.5-15.3); Lymphocytes # 3.2 10^3/uL (0.8-4.8); Lymphocytes % 15.3 %; Mean Corpuscular Hemoglobin 29.6 pg (28.0-34.0); Mean Corpuscular Volume 86.9 fl (81-99); Mean Platelet Volume 11.9 fL (7.4-10.4); Monocytes # 0.8 10^3/uL (0.2-0.9); Monocytes % 3.6 %; Neutrophils # 16.74 10^3/uL (1.8-7.7); Neutrophils % 79.6 %; Nucleated Red Blood Cells % 0.1 %; Platelet Count 275 10^3/cmm (130-400); Red Cell Distribution Width 13.5 % (12.1-15.1)
[2022-08-17 04:12] LABS: Anion Gap 15.9 (5-19); Blood Urea Nitrogen 28 mg/dL (6-20); C Reactive Protein 340.3 mg/L (0.0-4.9); Calcium 7.9 mg/dL (8.5-10.5); Carbon Dioxide 28 mmol/L (22-29); Chloride 101 mmol/L (98-107); Glomerular Filtration Rate 66.5 mL/min (90-130); Glucose 83 mg/dL (65-115); Osmolality Calculated 299 mOsm/kg (285-295); Phosphorus 4.3 mg/dL (2.5-4.5); Sodium 142 mmol/L (136-145)
[2022-08-17 04:23] LABS: Potassium 2.9 mmol/L (3.5-5.1)
[2022-08-17] MEDS: potassium chloride ER 20 mEq Tablet 60 MEQ PO (05:07)
[2022-08-17] MEDS: heparin 5,000 unit/mL INJ 1 mL 5000 UNIT SUBCUT ×2 (05:07→16:12)
[2022-08-17] MEDS: FUROsemide 10 mg/mL SDV 10mL 60 MG IVP ×2 (05:39→16:07)
[2022-08-17] MEDS: amlodipine 10 mg Tablet PO (08:00)
[2022-08-17] MEDS: sennosides-docusate Tablet 1 TAB PO (08:01)
[2022-08-17] MEDS: hyDROXYzine 25 mg Capsule 50 MG PO ×3 (08:01→21:12)
[2022-08-17] MEDS: methadone 10 mg Tablet 80 MG PO (08:01)
[2022-08-17] MEDS: lidocaine 1% 5 ML in potassium chloride premix 100 ML 25 ML IV (09:48)
[2022-08-17] MEDS: lisinopril 20 mg Tablet PO (09:52)
[2022-08-17 10:12] LABS: Anion Gap 15.1 (5-19); Blood Urea Nitrogen 28 mg/dL (6-20); Carbon Dioxide 27 mmol/L (22-29); Chloride 99 mmol/L (98-107); Glomerular Filtration Rate 76.2 mL/min (90-130); Glucose 121 mg/dL (65-115); Osmolality Calculated 293 mOsm/kg (285-295); Potassium 3.1 mmol/L (3.5-5.1); Sodium 138 mmol/L (136-145)
--- NOTE | 2022-08-17 12:47 | P.PN_ITS ---
Subjective Subjective: More than 2 L of urine output Patient endorsing feeling better Currently on heated high flow 80% ABG reviewed Echo done report is pending Afebrile Vitals/I&O/Wt Last Vital Signs Temp 99.8 F H 08/17/22 08:30 Pulse 80 08/17/22 12:00 Resp 25 H 08/17/22 12:00 BP 137/70 08/17/22 11:00 Pulse Ox 90 08/17/22 12:00 O2 Del Method Nasal Cannula 08/17/22 11:00 O2 Flow Rate 40 08/17/22 12:00 FiO2 85 08/17/22 12:00 08/16/22 08/17/22 08/17/22 22:59 06:59 14:59 Intake Total 1905 / 1905 Output Total 950 / 950 1400 / 2350 725 / 725 Balance 955 / 955 -1400 / -445 -725 / -725 Weight last 48 hrs Weight 91.172 kg Weight 91.172 kg Physical Exam Narrative: Signs of fluid overload improving Currently on heated high flow Awake and alert Eating breakfast GCS 15 Nonfocal neuro exam Lower extremity no edema Pleasant and cooperative Abdomen soft Urinary Catheter Management: Leal: Cath Placed During This Visit: yes Reason for Continuing Indwelling Catheter: Accurate Measurement of Urinary Output in Critically Ill Patients Urinary Catheter Date of Insertion: 08/16/22 Urinary Catheter Time of Insertion: 17:20 Data 08/17/22 03:00 08/17/22 09:45 Micro: Microbiology 08/16/22 12:20 Blood Culture - Preliminary Blood NEGATIVE TO DATE 08/16/22 12:20 Blood Culture - Preliminary Blood NEGATIVE TO DATE A&P Assessment and plan (1) CHF (congestive heart failure): Qualifiers: Heart failure chronicity: unspecified Heart failure type: unspecified Qualified Code(s): I50.9 - Heart failure, unspecified (2) Pulmonary edema: Qualifiers: Chronicity: acute Qualified Code(s): J81.0 - Acute pulmonary edema (3) Acute respiratory failure with hypoxia: (4) Acute hypokalemia: (5) Elevated lactic acid level: Plan Acute preserved ejection fraction heart failure exacerbation EF is preserved Like related to untreated sleep apnea I will continue IV diuresis Monitor for any signs of electrolyte imbalance Check BMP tomorrow morning Valvular pathology noted however she does not need any intervention at this point Most likely she will be able to go home in the next 24 to 48 hours once we are able to wean off oxygen COVID PCR negative Electrolyte imbalance repleted Magnesium is normal Full code Can be transfer out of ICU Patient has history of opioid dependence he takes methadone For hypertension I have added lisinopril today Holding hydrochlorothiazide because of use of IV Lasix Attestations Medical Necessity Statement*: Continue medical management Diagnoses CHF (congestive heart failure) I50.9 Heart failure chronicity: unspecified Heart failure type: unspecified Pulmonary edema J81.0 Chronicity: acute Acute respiratory failure with hypoxia J96.01 Acute hypokalemia E87.6 Elevated lactic acid level R79.89
--- NOTE | 2022-08-17 14:55 | PC.NURSE ---
Patient's SPO2 was going as low as 85% on the HHF (80%/40L) after coming off of bipap. Oxygen on HHF titrated up eventually reaching 90% FIO2, but saturations will only reach 88%. NUrse alerted DR angel and was instructed t place back on bipap. Respiratory therapy attempted to place patient back on bipap, but she is refusing at this time. CUrrently saturating 88% spo2 on 90% and 40L.
--- NOTE | 2022-08-17 17:47 | PC.NURSE ---
SHift SUmmary: Uneventful shift. Patient rested in bed throughout the day. REfused bipap during the day, but said she will use it at night. REfused up to a chair or repositioning citing fatigue due to an eventful night. Patient is alert and oriented to person, place, time, and situation.
[2022-08-17] MEDS: acetaminophen 500 mg Tablet PO (18:34)
[2022-08-17] MEDS: FUROsemide 10 mg/mL SDV 4mL 40 MG IVP (22:10)
[2022-08-18] VITALS (52 sets, daily range): BP systolic 86–130; BP diastolic 48–86; PULSE 66–92; RESP 10–29; TEMP 36.3–37.9; O2SAT 85–98
[2022-08-18 03:25] LABS: Anion Gap 16.1 (5-19); Blood Urea Nitrogen 29 mg/dL (6-20); Calcium 8.3 mg/dL (8.5-10.5); Carbon Dioxide 27 mmol/L (22-29); Chloride 98 mmol/L (98-107); Glomerular Filtration Rate 76.2 mL/min (90-130); Glucose 88 mg/dL (65-115); Osmolality Calculated 291 mOsm/kg (285-295); Potassium 3.1 mmol/L (3.5-5.1); Sodium 138 mmol/L (136-145)
[2022-08-18 03:54] LABS: Hematocrit 38.2 % (37.0-47.0); Mean Corpuscular Hemoglobin 29.8 pg (28.0-34.0); Mean Corpuscular Volume 87.6 fl (81-99); Platelet Count 268 10^3/cmm (130-400); Red Blood Count 4.36 10^6/uL (4.1-5.3)
[2022-08-18 04:16] LABS: Absolute Eosinophils 0.2 10^3/cmm (0.0-0.7); Absolute Segmented Neutrophil 18.2 10/cmm (1.6-7.1); Eosinophils 1 %; Lymphocytes 8 %; Platelet Estimate Normal (Normal); Segmented Neutrophils 91 %; Total Cells Counted 100 (0-100)
[2022-08-18] MEDS: heparin 5,000 unit/mL INJ 1 mL 5000 UNIT SUBCUT ×2 (05:36→17:51)
[2022-08-18] MEDS: methadone 10 mg Tablet 80 MG PO (05:38)
[2022-08-18] MEDS: ipratropium-albuterol 3 mL Neb INHALATION ×3 (07:32→20:02)
[2022-08-18] MEDS: sennosides-docusate Tablet 1 TAB PO (08:26)
[2022-08-18] MEDS: lisinopril 20 mg Tablet PO (08:26)
[2022-08-18] MEDS: amlodipine 10 mg Tablet PO (08:26)
[2022-08-18] MEDS: potassium chloride ER 20 mEq Tablet 40 MEQ PO ×2 (08:26→17:52)
[2022-08-18] MEDS: hyDROXYzine 25 mg Capsule 50 MG PO ×2 (08:27→14:36)
--- NOTE | 2022-08-18 09:02 | CT_ITS ---
WS: [id number] CT CHEST, ABDOMEN AND PELVIS NONCONTRAST. HISTORY: concern for malignancy TECHNIQUE: Contiguous 5 mm axial imaging performed through the chest, abdomen and pelvis without IV c ontrast, oral contrast has not been provided. Coronal and sagittal reformats chest. Coronal and sagit gerard reformats through the abdomen and pelvis. All CT scans at [facility] use at least one of these dose optimization techniques: automated exposure control; mA and/or kV adjustment per patient s ize (includes targeted exams where dose is matched to clinical indication); or iterative reconstructi on. CONTRAST: None DLP: 1012.63 mGy.cm COMPARISON: 08/16/2022 CT angiogram chest Chest CT: Extensive bilateral areas of consolidation and groundglass attenuation involving a large po rtion of the lungs. Greater distribution at the lung bases. Normal size heart. No pericardial or pleu ral effusions. Small mediastinal and hilar lymph nodes are probably reactive. Normal aorta and pulmon santa artery size. Abdomen CT: Hepatic steatosis. Liver is enlarged extending over a length of 17.5 cm. No bile duct dil atation. Normally distended gallbladder. There may be a small amount of layering sludge in the gallbl adder or this may be vicarious excretion from the recent contrast examination. Normal size spleen and pancreas. No bile duct dilatation. Normal adrenal glands. Normal size RIGHT kidney. Normal size LEFT kidney with multiple nonobstructing calcifications in the renal pelvis. Largest cluster of calcifica tions measures 9 mm in the mid renal pelvis. Mild atherosclerosis aorta. Visualized GI tract is nonobstructing. No inflammation or wall thickening identified on this unenhanc ed study. Normal appendix. No ascites or adenopathy. Pelvic CT: Uterus is midline. No pelvic masses. Leal catheter in a nondistended urinary bladder. No adenopathy. No destructive bone lesions are evident. CT/[place] [id number] IMPRESSION: 1. Severe, multilobar, bilateral dense pulmonary consolidations with adjacent groundglass attenuation. Most likely due to pneumonitis, consider Covid 19 pneu monitis. Additional considerations are pulmonary edema and pneumonia. 2. Study performed without IV contrast which limits evaluation for masses and inflammation. 3. Nonobstructing LEFT renal calcifications. 4. Normal appendix. 5. No ascites or adenopathy within the abdomen or pelvis. 6. Gallbladder sludge versus small stones or vicarious excretion of contrast. RIGHT upper quadrant ultrasound may be helpful to evaluate the gallbladder.
--- NOTE | 2022-08-18 12:49 | P.PN_ITS ---
Subjective Subjective: This morning I will increase the dose of Lasix CT chest abdomen pelvis showed bilateral infiltrate No signs of gastric cancer, supraclavicular lymphadenopathy nontender Request another COVID PCR I will increase the dose of potassium as well Afebrile Leukocytosis trending down Still on heated high flow 85% 40 L Vitals/I&O/Wt Last Vital Signs Temp 100.2 F H 08/18/22 12:30 Pulse 80 08/18/22 12:30 Resp 16 08/18/22 12:30 BP 105/58 08/18/22 12:30 Pulse Ox 90 08/18/22 12:30 O2 Del Method Heated High Flow 08/18/22 12:30 O2 Flow Rate 40 08/18/22 12:30 FiO2 85 08/18/22 12:30 08/17/22 08/18/22 08/18/22 22:59 06:59 14:59 Intake Total 750 / 955 1100 / 1100 Output Total 175 / 1100 900 / 2000 100 / 100 Balance 575 / -145 -900 / -1045 1000 / 1000 Weight last 48 hrs Weight 91.172 kg Physical Exam Narrative: Patient clinically does not look fluid overloaded Currently on heated high flow Awake and alert GCS 15 Abdomen soft Supraclavicular lymphadenopathy nontender S1, S2 Awake and alert GCS 15 Nonfocal neuro exam Urinary Catheter Management: Leal: Cath Placed During This Visit: yes Reason for Continuing Indwelling Catheter: Accurate Measurement of Urinary Output in Critically Ill Patients Urinary Catheter Date of Insertion: 08/16/22 Urinary Catheter Time of Insertion: 17:20 Data 08/18/22 02:32 08/18/22 02:32 Micro: Microbiology 08/16/22 12:20 Blood Culture - Preliminary Blood NEGATIVE TO DATE 08/16/22 12:20 Blood Culture - Preliminary Blood NEGATIVE TO DATE A&P Assessment and plan (1) CHF (congestive heart failure): Qualifiers: Heart failure chronicity: unspecified Heart failure type: unspecified Qualified Code(s): I50.9 - Heart failure, unspecified (2) Pulmonary edema: Qualifiers: Chronicity: acute Qualified Code(s): J81.0 - Acute pulmonary edema (3) Acute respiratory failure with hypoxia: (4) Acute hypokalemia: Plan Acute hypoxia related to CHF exacerbation Preserved ejection fraction heart failure exacerbation Increase the dose of Lasix because patient's net balance is inadequately ne gative Increase the dose of Lasix along potassium supplement EF is preserved Repeat CT chest abdomen pelvis showed bilateral infiltrate no signs of gastric cancer Supraclavicular lymphadenopathy noted Leukocytosis trending down Afebrile Continue heated high flow for now Add IV steroids which will increase white count in the morning Cultures negative to date Add Mucomyst BiPAP at nighttime Patient has history of opiate dependence continue methadone Full code Family updated at the bedside Attestations Medical Necessity Statement*: Continue ICU management Diagnoses CHF (congestive heart failure) I50.9 Heart failure chronicity: unspecified Heart failure type: unspecified Pulmonary edema J81.0 Chronicity: acute Acute respiratory failure with hypoxia J96.01 Acute hypokalemia E87.6
--- NOTE | 2022-08-18 13:07 | PC.PHAR ---
PHARMACY TO DOSE CONSULT - VANCOMYCIN With patient's current vial and lab results, her vancomycin dose was calculated at 1500mg every 12 hours with a predicted peak of 37.3 mcg/ml and a trough of 15.52. A trough level will be drawn prior to the 4th dose and adjustments made accordingly. Pharmacy will continue to monitor the patient's renal function. Please let us know if there is anything that we can help in the care of this patient. Thanks, Neo Parham, Pharm.D
[2022-08-18 13:25] LABS: Lactate Dehydrogenase 536 U/L (135-214)
[2022-08-18 13:47] LABS: Adenovirus Not Detected (NOT DETECT); Chlamydia Pneumoniae Not Detected (NOT DETECT); Coronavirus 229E,HKU1,NL63,OC4 Not Detected (NOT DETECT); Human Metapneumovirus Not Detected (NOT DETECT); Human Rhinovirus/Enterovirus Not Detected (NOT DETECT); Influenza A Not Detected (NOT DETECT); Influenza A H1 Not Detected (NOT DETECT); Influenza A H1-2009 Not Detected (NOT DETECT); Influenza A H3 Not Detected (NOT DETECT); Influenza B Not Detected (NOT DETECT); Mycoplasma Pneumoniae Not Detected (NOT DETECT); Parainfluenza Virus Type 1 Not Detected (NOT DETECT); Parainfluenza Virus Type 2 Not Detected (NOT DETECT); Parainfluenza Virus Type 3 Not Detected (NOT DETECT); Parainfluenza Virus Type 4 Not Detected (NOT DETECT); Respiratory Syncytial Virus A Not Detected (NOT DETECT); Respiratory Syncytial Virus B Not Detected (NOT DETECT); SARS-COV-2 Not Detected (NOT DETECT)
[2022-08-18] MEDS: FUROsemide 10 mg/mL SDV 4mL 40 MG IVP (14:02)
[2022-08-18] MEDS: vancomycin 1,500 MG/300 ML PIGGYBACK 200 MG IV (14:02)
[2022-08-18] MEDS: aztreonam 2,000 MG in sodium chloride 0.9% (plus) 100 ML 200 MG IV (14:36)
[2022-08-18] MEDS: acetaminophen 500 mg Tablet PO (14:41)
[2022-08-18] MEDS: acetylcysteine 200 mg/mL MDV 10 mL INHALATION ×2 (15:26→20:02)
[2022-08-18] MEDS: oxyCODONE-APAP 5-325 mg Tablet 1 TAB PO (15:54)
--- NOTE | 2022-08-18 19:29 | PC.NURSE ---
SHift SUmmary: Uneventful shift. Patient was up to a chair for about 4 hours today. Still on heated high flow 80% and 40 L. Viral panel negative. Taken to CT. Patient desaturates to the low 80's and becomes very anxious with physical activity, but quickly recovers.
[2022-08-18] MEDS: budesonide 0.5 mg/2 mL Neb INHALATION (20:01)
[2022-08-19] VITALS (39 sets, daily range): BP systolic 80–122; BP diastolic 46–86; PULSE 67–91; RESP 13–28; TEMP 36.3–37.3; O2SAT 89–100
[2022-08-19] MEDS: aztreonam 2,000 MG in sodium chloride 0.9% (plus) 100 ML 200 MG IV ×2 (00:28→13:48)
[2022-08-19] MEDS: FUROsemide 10 mg/mL SDV 4mL 40 MG IVP (00:28)
[2022-08-19] MEDS: ipratropium-albuterol 3 mL Neb INHALATION ×6 (00:30→20:25)
[2022-08-19] MEDS: acetylcysteine 200 mg/mL MDV 10 mL INHALATION ×5 (00:30→20:24)
[2022-08-19] MEDS: vancomycin 1,500 MG/300 ML PIGGYBACK 200 MG IV (01:04)
--- NOTE | 2022-08-19 01:22 | PC.PHAR ---
Vanomycin Trough scheduled for 08/20 0030, please hold 0130 dose until drawn. Will continue to follow. Thank you, Mini Rich [facility]
[2022-08-19 02:25] LABS: Base Excess VBG 2.1 mmol/L (-3.0-3.0); Blood Gas Operator Identificat JB; Blood Gas Sample Site Not specified; Blood Gas Sample Type Venous; HCO3 VBG 27.5 mmol/L (24-28); Oxygen Device BIPAP; PCO2 VBG 44.8 mmHg (41-51); PO2 VBG 55.6 mmHg (25-40); Venous Blood Gas Hematocrit 41.8 % (37-47)
[2022-08-19 02:45] LABS: Basophils # 0.1 10^3/uL (0.0-0.1); Basophils % 0.5 %; Eosinophils # 0.3 10^3/uL (0.0-0.8); Hematocrit 37.4 % (37.0-47.0); Hemoglobin 12.6 g/dL (11.5-15.3); Lymphocytes # 2.7 10^3/uL (0.8-4.8); Lymphocytes % 15.6 %; Mean Corpuscular HGB Conc 33.7 g/dL (30.0-36.0); Mean Corpuscular Hemoglobin 29.8 pg (28.0-34.0); Mean Corpuscular Volume 88.4 fl (81-99); Mean Platelet Volume 11.7 fL (7.4-10.4); Monocytes % 5.6 %; Neutrophils # 13.08 10^3/uL (1.8-7.7); Neutrophils % 75.6 %; Nucleated Red Blood Cells % 0.2 %; Platelet Count 240 10^3/cmm (130-400); Red Blood Count 4.23 10^6/uL (4.1-5.3); Red Cell Distribution Width 14.4 % (12.1-15.1); White Blood Count 17.3 10^3/uL (4.0-10.0)
[2022-08-19 03:07] LABS: Anion Gap 16.3 (5-19); Blood Urea Nitrogen 37 mg/dL (6-20); Carbon Dioxide 26 mmol/L (22-29); Chloride 99 mmol/L (98-107); Glomerular Filtration Rate 36.9 mL/min (90-130); Glucose 86 mg/dL (65-115); Magnesium 2.1 mg/dL (1.7-2.3); Osmolality Calculated 294 mOsm/kg (285-295); Potassium 3.3 mmol/L (3.5-5.1); Sodium 138 mmol/L (136-145)
[2022-08-19 03:08] LABS: Lactate (Lactic Acid level) 1.3 mmol/L (0.5-2.2)
[2022-08-19 03:12] LABS: Procalcitonin 3.05 ng/mL (0-0.5)
[2022-08-19] MEDS: heparin 5,000 unit/mL INJ 1 mL 5000 UNIT SUBCUT (04:39)
[2022-08-19] MEDS: methadone 10 mg Tablet 80 MG PO (05:31)
[2022-08-19] MEDS: budesonide 0.5 mg/2 mL Neb INHALATION ×2 (07:51→20:25)
[2022-08-19] MEDS: potassium chloride ER 20 mEq Tablet 40 MEQ PO ×2 (08:27→10:28)
[2022-08-19] MEDS: hyDROXYzine 25 mg Capsule 50 MG PO ×3 (08:28→21:00)
[2022-08-19] MEDS: sennosides-docusate Tablet 1 TAB PO (08:28)
[2022-08-19] MEDS: amlodipine 10 mg Tablet PO (08:28)
[2022-08-19] MEDS: lisinopril 20 mg Tablet PO (08:28)
--- NOTE | 2022-08-19 09:30 | PM.PN ---
Subjective Subjective: 2800 mL urine output Creatinine worse Hold lisinopril Lasix and potassium supplements today Patient is on heated high flow, off BiPAP Currently on 75% 35 L Vitals/I&O/Wt Last Vital Signs Temp 99.0 F 08/19/22 07:42 Pulse 89 08/19/22 09:21 Resp 22 H 08/19/22 09:21 BP 104/70 08/19/22 07:30 Pulse Ox 93 08/19/22 09:21 O2 Del Method Heated High Flow 08/19/22 07:51 O2 Flow Rate 35 08/19/22 09:21 FiO2 75 08/19/22 09:21 08/18/22 08/19/22 08/19/22 22:59 06:59 14:59 Intake Total 1900 / 3000 400 / 3400 240 / 240 Output Total 700 / 800 Balance 1900 / 2900 -300 / 2600 240 / 240 Weight last 48 hrs Weight 91.308 kg Physical Exam Narrative: Clinically looks euvolemic Currently on heated high flow Hemodynamically stable No active chest pain or shortness of breath GCS 15 Nonfocal neuro exam Abdomen soft Lower extremity no edema S1, S2 Abdomen soft Awake and alert Urinary Catheter Management: Leal: Cath Placed During This Visit: yes Reason for Continuing Indwelling Catheter: Accurate Measurement of Urinary Output in Critically Ill Patients Urinary Catheter Date of Insertion: 08/16/22 Urinary Catheter Time of Insertion: 17:20 Data 08/19/22 02:17 08/19/22 02:17 Micro: Microbiology 08/18/22 13:54 Legionella Urinary Antigen - Final Urine Catheterized 08/18/22 13:54 Bacterial Antigens - Final Urine,Voided A&P Assessment and plan (1) CHF (congestive heart failure): Qualifiers: Heart failure chronicity: unspecified Heart failure type: unspecified Qualified Code(s): I50.9 - Heart failure, unspecified (2) Pulmonary edema: Qualifiers: Chronicity: acute Qualified Code(s): J81.0 - Acute pulmonary edema (3) Acute respiratory failure with hypoxia: (4) Elevated lactic acid level: (5) Acute hypokalemia: (6) Community acquired pneumonia: Plan Community-acquired pneumonia Dense consolidation on CT scan I do not see any cystic appearance However LDH is high I would not add IV Bactrim at this point Leukocytosis trending down Afebrile Acute hypoxia: Requiring heated high flow in the daytime and BiPAP overnight related CHF and good dense consolidation bilateral COVID-negative LDH high Currently on 75% FiO2 35 L heated high flow AMBER related to overdiuresis 2800ml output overnight Hold Lasix Hypokalemia: Repleted Preserved ejection fraction heart failure exacerbation likely due to untreated sleep apnea Holding Lasix for today watch kidney function without diuretics for next 1 day I have requested sputum sample, PCP antigen, Full code Cardiac diet DVT prophylaxis on board No signs of PE Attestations Medical Necessity Statement*: Continue medical management Diagnoses CHF (congestive heart failure) I50.9 Heart failure chronicity: unspecified Heart failure type: unspecified Pulmonary edema J81.0 Chronicity: acute Acute respiratory failure with hypoxia J96.01 Elevated lactic acid level R79.89 Acute hypokalemia E87.6 Community acquired pneumonia J18.9
--- NOTE | 2022-08-19 09:47 | USCV_ITS ---
Lavern Allen Age: 47 Gender: F : 1975 Exam Date: 08/19/2022 10:03 Ordering Phys: Gonzalo Doyle MD Technologist: Unruly Campos [place] [facility] [place]: [place] PROCEDURES: The venous duplex Doppler examination of both lower extremities was performed in the standard fashion. Venous duplex imaging was performed in bilateral lower extremities. FINDINGS: Normal 2-D Doppler and augmentation and compressibility throughout the lower extremity venous structures. Additional imaging through the proximal calf veins also reveals no thrombus. Limited evaluation of the greater saphenous vein is patent with no thrombus. CONCLUSIONS No DVT bilateral lower extremities. Dr. Yoko Holliday DO (Electronically Signed) Final Date: 19 August 2022 11:29 S
[2022-08-19] MEDS: enoxaparin 100 mg/mL Syringe 90 MG SUBCUT ×2 (10:29→21:00)
[2022-08-19] MEDS: acetaminophen 500 mg Tablet PO (16:03)
--- NOTE | 2022-08-19 19:13 | PC.NURSE ---
Dr Doyle called to follow up on pt. So far no BM. Lactulose 10gm PO one time , if patient wants it to have BM. Pt declined offer. She stated she felt like she could go by tomorrow morning if not sooner.
[2022-08-20] VITALS (28 sets, daily range): BP systolic 78–132; BP diastolic 47–76; PULSE 72–92; RESP 15–31; TEMP 36.7–37.4; O2SAT 88–99
[2022-08-20] MEDS: ipratropium-albuterol 3 mL Neb INHALATION ×6 (00:03→21:18)
[2022-08-20] MEDS: acetylcysteine 200 mg/mL MDV 10 mL INHALATION ×6 (00:05→21:17)
[2022-08-20] MEDS: aztreonam 2,000 MG in sodium chloride 0.9% (plus) 100 ML 200 MG IV ×2 (01:30→13:36)
[2022-08-20] MEDS: vancomycin 1,500 MG/300 ML PIGGYBACK 200 MG IV (01:31)
[2022-08-20 04:15] LABS: Basophils # 0.1 10^3/uL (0.0-0.1); Basophils % 0.7 %; Eosinophils # 0.5 10^3/uL (0.0-0.8); Hematocrit 36.4 % (37.0-47.0); Hemoglobin 12.2 g/dL (11.5-15.3); Lymphocytes % 19.9 %; Mean Corpuscular HGB Conc 33.5 g/dL (30.0-36.0); Mean Corpuscular Hemoglobin 30.2 pg (28.0-34.0); Mean Corpuscular Volume 90.1 fl (81-99); Mean Platelet Volume 11.6 fL (7.4-10.4); Monocytes % 6.6 %; Neutrophils # 10.38 10^3/uL (1.8-7.7); Neutrophils % 68.2 %; Nucleated Red Blood Cells % 0 %; Platelet Count 251 10^3/cmm (130-400); Red Blood Count 4.04 10^6/uL (4.1-5.3); Red Cell Distribution Width 14.7 % (12.1-15.1); White Blood Count 15.2 10^3/uL (4.0-10.0)
[2022-08-20 04:37] LABS: Anion Gap 17.1 (5-19); Blood Urea Nitrogen 41 mg/dL (6-20); Carbon Dioxide 24 mmol/L (22-29); Chloride 102 mmol/L (98-107); Glucose 93 mg/dL (65-115); Osmolality Calculated 298 mOsm/kg (285-295); Potassium 4.1 mmol/L (3.5-5.1); Sodium 139 mmol/L (136-145)
[2022-08-20 04:41] LABS: Procalcitonin 3.73 ng/mL (0-0.5)
[2022-08-20 04:59] LABS: ABG PH Result 7.36 (7.35-7.45); Arterial Blood Gas Hematocrit 54.2 % (37-47); Blood Gas Allen Test Pos; Blood Gas Operator Identificat JB; Blood Gas Sample Site Radial, right; Blood Gas Sample Type Arterial; HCO3 ABG 26.1 mmol/L (22-26); Oxygen Device BIPAP
[2022-08-20] MEDS: methadone 10 mg Tablet 80 MG PO (06:02)
[2022-08-20] MEDS: budesonide 0.5 mg/2 mL Neb INHALATION ×2 (07:51→21:18)
[2022-08-20] MEDS: sertraline 50 mg Tablet PO (09:25)
[2022-08-20] MEDS: sodium chloride 0.9% 1,000 ML 100 ML IV (09:25)
[2022-08-20] MEDS: doxycycline 100 mg Tablet PO ×2 (09:25→17:35)
[2022-08-20] MEDS: sennosides-docusate Tablet 1 TAB PO (09:26)
[2022-08-20] MEDS: heparin 5,000 unit/mL INJ 1 mL 5000 UNIT SUBCUT ×2 (09:26→20:34)
[2022-08-20] MEDS: ALPRAZolam 0.5 mg Tablet PO ×3 (09:28→23:30)
[2022-08-20 10:04] LABS: Urine Creatinine 125 mg/dL (28-217); Urine Random Sodium 53 mmol/L
[2022-08-20 10:37] LABS: Eosinophil Urine No Eosinophils Seen; Urine Eosinophil Count 0 (0-0)
[2022-08-20 10:47] LABS: Urine Random Chloride < 10 mmol/L
--- NOTE | 2022-08-20 11:53 | P.PN_ITS ---
Subjective Subjective: Worsening of creatinine noted Patient extremely dry on clinical exam Added IV fluids Discontinue Lovenox and lisinopril Can be transferred out of ICU Currently on 3 L nasal cannula Vitals/I&O/Wt Last Vital Signs Temp 98.7 F 08/20/22 08:00 Pulse 76 08/20/22 07:55 Resp 15 08/20/22 07:30 BP 108/53 08/20/22 06:00 Pulse Ox 97 08/20/22 07:55 O2 Del Method BiPAP 08/20/22 07:30 O2 Flow Rate 35 08/19/22 20:28 FiO2 50 08/20/22 07:55 08/19/22 08/20/22 08/20/22 22:59 06:59 14:59 Intake Total 400 / 740 Output Total 625 / 625 300 / 925 Balance -625 / -285 100 / -185 Weight last 48 hrs Weight 91.308 kg Physical Exam Narrative: She is in good spirits Currently on 3 L Extremely dry on clinical exam Bilateral breath sounds without adventitious wheezing Abdomen soft Low 70 no swelling GCS 15 Nonfocal neuro exam S1, S2 Urinary Catheter Management: Leal: Cath Placed During This Visit: yes Reason for Continuing Indwelling Catheter: Accurate Measurement of Urinary Output in Critically Ill Patients Urinary Catheter Date of Insertion: 08/16/22 Urinary Catheter Time of Insertion: 17:20 Data 08/20/22 04:01 08/20/22 04:01 A&P Assessment and plan (1) Community acquired pneumonia: (2) CHF (congestive heart failure): Qualifiers: Heart failure chronicity: unspecified Heart failure type: unspecified Qualified Code(s): I50.9 - Heart failure, unspecified (3) Pulmonary edema: Qualifiers: Chronicity: acute Qualified Code(s): J81.0 - Acute pulmonary edema (4) Acute respiratory failure with hypoxia: (5) Acute hypokalemia: (6) AMBER (acute kidney injury): Plan Community-acquired pneumonia Leukocytosis trending down Afebrile I will add doxycycline along aztreonam Discontinue vancomycin MRSA PCR Cultures negative to date COVID-negative Hypoxia related to CHF and pneumonia Currently on nasal cannula 3 to 5 L Off BiPAP We have discontinued heated high flow X-ray and CT scan images show to the patient and her family Diastolic CHF exacerbation Holding Lasix clinically patient is dry AMBER related to overdiuresis Monitor for contrast-induced nephropathy as patient received contrast on admis klaus I will give her IV fluids for next 6 hours Lift her fluid restriction Back pain: Opiate dependent history, continue methadone Avoid addition of opioids Physically deconditioned Continue PT Transfer out of ICU to [facility] Continue BiPAP at nighttime Attestations Medical Necessity Statement*: I am anticipating patient will stay until next week Diagnoses Community acquired pneumonia J18.9 CHF (congestive heart failure) I50.9 Heart failure chronicity: unspecified Heart failure type: unspecified Pulmonary edema J81.0 Chronicity: acute Acute respiratory failure with hypoxia J96.01 Acute hypokalemia E87.6 AMBER (acute kidney injury) N17.9
--- NOTE | 2022-08-20 14:17 | PC.NURSE ---
Report called to [facility] Report given to
--- NOTE | 2022-08-20 14:54 | XR_ITS ---
WS: [id number] Exam: XR chest 1V portable [id number] Date/Time of Exam: 08/20/2022 3:13 PM Reason For Exam: Pneumonia, hypoxia Comparison 08/16/2022. Significantly improved pulmonary infiltrates since previous exam. There is still residual infiltrate in both lungs. No pleural effusion or pneumothorax. Heart size is smaller. The mediastinum is normal in contour. Bony structures are intact. XR/XR chest 1V portable [id number] IMPRESSION: 1. Significantly improved bilateral pulmonary infiltrates. There is still resid ual groundglass infiltrate and scattered airspace opacities. 2. Although technique is somewhat different the heart appears to be slightly sm aller than noted previously
--- NOTE | 2022-08-20 14:55 | PC.NURSE ---
Patient arrived to med/surg 269.
--- NOTE | 2022-08-20 15:05 | PC.NURSE ---
Pt transferred to Rom 269 via W/C. All belongings packed up and carried to room by patient's son.
[2022-08-20 15:32] LABS: Phosphorus 5.4 mg/dL (2.5-4.5)
[2022-08-20] MEDS: acetaminophen 500 mg Tablet PO (19:47)
[2022-08-20] MEDS: lanolin oint 7 gm 1 APPLIC TOPICAL (20:34)
[2022-08-21] VITALS (19 sets, daily range): BP systolic 114–143; BP diastolic 72–79; PULSE 66–90; RESP 13–20; TEMP 36.4–37.2; O2SAT 91–98
[2022-08-21] MEDS: acetylcysteine 200 mg/mL MDV 10 mL INHALATION ×4 (00:25→11:36)
[2022-08-21] MEDS: ipratropium-albuterol 3 mL Neb INHALATION ×7 (00:26→23:03)
[2022-08-21] MEDS: aztreonam 2,000 MG in sodium chloride 0.9% (plus) 100 ML 200 MG IV (05:24)
[2022-08-21] MEDS: methadone 10 mg Tablet 80 MG PO (05:25)
[2022-08-21 05:32] LABS: Basophils # 0.1 10^3/uL (0.0-0.1); Basophils % 0.8 %; Eosinophils # 0.5 10^3/uL (0.0-0.8); Eosinophils % 4.1 %; Hematocrit 37.5 % (37.0-47.0); Hemoglobin 12.3 g/dL (11.5-15.3); Lymphocytes # 3.8 10^3/uL (0.8-4.8); Lymphocytes % 29.9 %; Mean Corpuscular HGB Conc 32.8 g/dL (30.0-36.0); Mean Corpuscular Hemoglobin 29.6 pg (28.0-34.0); Mean Corpuscular Volume 90.4 fl (81-99); Mean Platelet Volume 11.5 fL (7.4-10.4); Monocytes # 0.7 10^3/uL (0.2-0.9); Monocytes % 5.5 %; Neutrophils # 7.26 10^3/uL (1.8-7.7); Neutrophils % 57.9 %; Nucleated Red Blood Cells % 0 %; Platelet Count 275 10^3/cmm (130-400); Red Blood Count 4.15 10^6/uL (4.1-5.3); Red Cell Distribution Width 15.1 % (12.1-15.1); White Blood Count 12.6 10^3/uL (4.0-10.0)
[2022-08-21 05:39] LABS: Blood Urea Nitrogen 30 mg/dL (6-20); Calcium 8.3 mg/dL (8.5-10.5); Carbon Dioxide 24 mmol/L (22-29); Chloride 104 mmol/L (98-107); Glomerular Filtration Rate 76.2 mL/min (90-130); Glucose 65 mg/dL (65-115); Magnesium 2.1 mg/dL (1.7-2.3); Osmolality Calculated 294 mOsm/kg (285-295); Sodium 140 mmol/L (136-145)
[2022-08-21 05:47] LABS: Anion Gap 15.9 (5-19); Potassium 3.9 mmol/L (3.5-5.1)
[2022-08-21] MEDS: budesonide 0.5 mg/2 mL Neb INHALATION ×2 (07:40→19:57)
[2022-08-21] MEDS: heparin 5,000 unit/mL INJ 1 mL 5000 UNIT SUBCUT ×2 (09:12→21:33)
[2022-08-21] MEDS: sertraline 50 mg Tablet PO (09:12)
[2022-08-21] MEDS: ALPRAZolam 0.5 mg Tablet PO ×2 (09:12→17:08)
[2022-08-21] MEDS: doxycycline 100 mg Tablet PO ×2 (09:12→17:05)
[2022-08-21] MEDS: sennosides-docusate Tablet 1 TAB PO (09:12)
--- NOTE | 2022-08-21 10:59 | PC.SOCIAL ---
IMM Update pg 2 of IMM updated and reviewed w/ patient. Copy signed and copy dated, initialed and placed in chart. Copy left @ bedside.
[2022-08-21] MEDS: oxyCODONE 5 mg IR Tab/Cap PO ×2 (12:42→19:04)
[2022-08-21] MEDS: nystatin powder 15 gm Btl 1 APPLIC TOPICAL (17:05)
--- NOTE | 2022-08-21 21:19 | PM.PN ---
Subjective Subjective: Patient reports shortness of breath and cough. Reports diffuse weakness. No respiratory reserve. Son is bedside and supportive. Denies fevers, chills, or chest pains. Medications: Reviewed: Yes Vitals/I&O/Wt Last Vital Signs Temp 97.6 F 08/21/22 20:00 Pulse 90 08/21/22 20:00 Resp 17 08/21/22 20:00 BP 129/79 08/21/22 20:00 Pulse Ox 91 08/21/22 20:00 O2 Del Method Nasal Cannula 08/21/22 19:58 O2 Flow Rate 3 08/21/22 19:58 FiO2 35 08/21/22 07:43 08/21/22 08/21/22 08/21/22 06:59 14:59 22:59 Intake Total 100 / 2330 720 / 720 480 / 1200 Output Total 850 / 1750 650 / 650 Balance -750 / 580 720 / 720 -170 / 550 Physical Exam Narrative: General: Patient is awake and alert. Head: Normocephalic. Atraumatic. EOM intact. Neck: No JVD. Cardiovascular: RRR. No gallops. No murmurs. Lungs: Poor air movement. Tachypnea when speaking. Difficulty speaking in full sentence. Bilateral rhonchi and wheezine. Skin: No jaundice. No rashes. Abdomen: Normal bowel sounds, abdomen soft and nontender. Genito Urinary: Genital exam not performed since complaints not related. Rectal: Rectal exam not performed since no symptoms indicated blood loss. Extremities: No cyanosis or clubbing. Musculoskeletal: Normal muscle mass. Neurological: No myoclonus. Moves all 4 extremities. Urinary Catheter Management: Leal: Cath Placed During This Visit: yes Reason for Continuing Indwelling Catheter: Accurate Measurement of Urinary Output in Critically Ill Patients Urinary Catheter Date of Insertion: 08/16/22 Urinary Catheter Time of Insertion: 17:20 Data 08/21/22 04:20 08/21/22 04:20 Micro: Microbiology 08/20/22 09:30 MRSA Culture - Final Nose 08/16/22 12:20 Blood Culture - Final Blood NO GROWTH AFTER 5 DAYS 08/16/22 12:20 Blood Culture - Final Blood NO GROWTH AFTER 5 DAYS A&P Assessment and plan (1) Community acquired pneumonia: (2) CHF (congestive heart failure): Qualifiers: Heart failure chronicity: unspecified Heart failure type: unspecified Qualified Code(s): I50.9 - Heart failure, unspecified (3) Pulmonary edema: Qualifiers: Chronicity: acute Qualified Code(s): J81.0 - Acute pulmonary edema (4) Acute respiratory failure with hypoxia: (5) Acute hypokalemia: (6) AMBER (acute kidney injury): Plan Community-acquired pneumonia Stop IV abx Continue doxy Start levofloxacin Hypoxia related to CHF and pneumonia Treat PNA Achieve net neg fluid balance Supporitve care Diastolic CHF exacerbation Lasix held, reassess in AM AMBER related to overdiuresis Renal function back to baseline Reassess need for Lasix tomorrow Avoid nephrotoxins Back pain: Opiate dependent history, continue methadone Physically deconditioned Continue PT Code status: Full Attestations Medical Necessity Statement*: Patient requires ongoing hospitalized care for treatment of PNA, CHF, and debility Coding Level of Care Code Acute Code for g Fwd Diagnoses Community acquired pneumonia J18.9 CHF (congestive heart failure) I50.9 Heart failure chronicity: unspecified Heart failure type: unspecified Pulmonary edema J81.0 Chronicity: acute Acute respiratory failure with hypoxia J96.01 Acute hypokalemia E87.6 AMBER (acute kidney injury) N17.9
[2022-08-22] VITALS (19 sets, daily range): BP systolic 117–151; BP diastolic 71–87; PULSE 65–86; RESP 15–19; TEMP 36.6–37.5; O2SAT 92–98
[2022-08-22] MEDS: ipratropium-albuterol 3 mL Neb INHALATION ×6 (03:45→23:54)
[2022-08-22 05:07] LABS: Basophils # 0.1 10^3/uL (0.0-0.1); Basophils % 1.1 %; Eosinophils # 0.5 10^3/uL (0.0-0.8); Eosinophils % 3.9 %; Hematocrit 36.4 % (37.0-47.0); Hemoglobin 11.8 g/dL (11.5-15.3); Lymphocytes # 3.9 10^3/uL (0.8-4.8); Lymphocytes % 33.7 %; Mean Corpuscular HGB Conc 32.4 g/dL (30.0-36.0); Mean Corpuscular Hemoglobin 29.8 pg (28.0-34.0); Mean Corpuscular Volume 91.9 fl (81-99); Mean Platelet Volume 11.7 fL (7.4-10.4); Monocytes # 0.7 10^3/uL (0.2-0.9); Monocytes % 6.4 %; Neutrophils # 6.06 10^3/uL (1.8-7.7); Neutrophils % 52.8 %; Nucleated Red Blood Cells % 0 %; Platelet Count 300 10^3/cmm (130-400); Red Blood Count 3.96 10^6/uL (4.1-5.3); Red Cell Distribution Width 15.4 % (12.1-15.1); White Blood Count 11.5 10^3/uL (4.0-10.0)
[2022-08-22] MEDS: ALPRAZolam 0.5 mg Tablet PO ×2 (05:26→15:27)
[2022-08-22] MEDS: methadone 10 mg Tablet 80 MG PO (05:26)
[2022-08-22] MEDS: levoFLOXacin 750 mg Tablet PO (05:26)
[2022-08-22] MEDS: acetaminophen 500 mg Tablet PO (05:27)
[2022-08-22 05:32] LABS: Alanine Aminotransferase 25 U/L (0-33); Albumin Level 2.3 g/dL (3.5-5.2); Alkaline Phosphatase 353 U/L (35-105); Anion Gap 15.8 (5-19); Aspartate Amino Transferase 47 U/L (0-32); Blood Urea Nitrogen 19 mg/dL (6-20); Calcium 8.6 mg/dL (8.5-10.5); Carbon Dioxide 25 mmol/L (22-29); Chloride 103 mmol/L (98-107); Globulin 4.1 g/dL (1.3-4.6); Glomerular Filtration Rate 106.3 mL/min (90-130); Glucose 125 mg/dL (65-115); Magnesium 1.8 mg/dL (1.7-2.3); Osmolality Calculated 294 mOsm/kg (285-295); Phosphorus 3.4 mg/dL (2.5-4.5); Potassium 3.8 mmol/L (3.5-5.1); Sodium 140 mmol/L (136-145); Total Bilirubin 0.5 mg/dL (0.15-1.2); Total Protein 6.4 g/dL (6.6-8.7)
[2022-08-22] MEDS: budesonide 0.5 mg/2 mL Neb INHALATION ×2 (07:21→19:21)
[2022-08-22] MEDS: heparin 5,000 unit/mL INJ 1 mL 5000 UNIT SUBCUT ×2 (08:51→20:18)
[2022-08-22] MEDS: sennosides-docusate Tablet 1 TAB PO (08:51)
[2022-08-22] MEDS: sertraline 50 mg Tablet PO (08:51)
[2022-08-22] MEDS: doxycycline 100 mg Tablet PO ×2 (08:51→17:46)
[2022-08-22] MEDS: nystatin powder 15 gm Btl 1 APPLIC TOPICAL ×2 (08:51→17:46)
[2022-08-22] MEDS: ibuprofen 600 mg Tablet PO (15:27)
--- NOTE | 2022-08-22 17:52 | PM.PN ---
Subjective Subjective: Patient reports she feels worse today. Endorses diffuse weakness and too tired to get out of bed. Reports shortness of breath, worse with exertion. Denies fevers, nausea or emesis. Medications: Reviewed: Yes Vitals/I&O/Wt Last Vital Signs Temp 98.2 F 08/22/22 15:42 Pulse 80 08/22/22 15:42 Resp 16 08/22/22 15:28 BP 151/87 08/22/22 15:42 Pulse Ox 92 08/22/22 15:42 O2 Del Method Nasal Cannula 08/22/22 15:28 O2 Flow Rate 3 08/22/22 15:28 FiO2 35 08/22/22 03:48 08/22/22 08/22/22 08/22/22 06:59 14:59 22:59 Intake Total 480 / 480 240 / 720 Output Total 1000 / 1650 850 / 850 Balance -1000 / 30 480 / 480 -610 / -130 Physical Exam Narrative: General: Patient is awake and alert. Ill appearing. Head: Normocephalic. Atraumatic. EOM intact. Neck: No JVD. Cardiovascular: RRR. No gallops. No murmurs. Lungs: Poor air movement. Tachypnea when speaking. Difficulty speaking in full sentence. Faint bilateral rhonchi and wheezing. Skin: No jaundice. No rashes. Abdomen: Normal bowel sounds, abdomen soft and nontender. Extremities: No cyanosis or clubbing. Musculoskeletal: Normal muscle mass. Neurological: No myoclonus. Moves all 4 extremities. Urinary Catheter Management: Leal: Cath Placed During This Visit: yes Reason for Continuing Indwelling Catheter: Accurate Measurement of Urinary Output in Critically Ill Patients Urinary Catheter Date of Insertion: 08/16/22 Urinary Catheter Time of Insertion: 17:20 Data 08/22/22 04:22 08/22/22 04:22 Micro: Microbiology 08/20/22 09:30 MRSA Culture - Final Nose A&P Assessment and plan (1) Community acquired pneumonia: (2) CHF (congestive heart failure): Qualifiers: Heart failure chronicity: unspecified Heart failure type: unspecified Qualified Code(s): I50.9 - Heart failure, unspecified (3) Pulmonary edema: Qualifiers: Chronicity: acute Qualified Code(s): J81.0 - Acute pulmonary edema (4) Acute respiratory failure with hypoxia: (5) Acute hypokalemia: (6) AMBER (acute kidney injury): Plan Community-acquired pneumonia -Continue doxy -Continue levofloxacin -Pulmonary toilet Acute hypoxia related to CHF and pneumonia -Treat underlying PNA -Achieve net neg fluid balance -Continue breathing treatments -Supportive care Acute diastolic CHF exacerbation -Restart home Lasix -Strict I&Os -Daily weights Back pain -Continue methadone -Start home ibuprofen -Avoid additional opiates Physically deconditioned -Patient notably weaker today -Continue PT Hypertension -Restart Norvasc -Holding lisinopril AMBER related to overdiuresis, resolved DVT ppx: Code status: Full Code Attestations Medical Necessity Statement*: Patient requires ongoing hospitalized care for treatment of PNA, CHF, and debility Coding Level of Care Code Acute Code for [facility] Fwd Diagnoses Community acquired pneumonia J18.9 CHF (congestive heart failure) I50.9 Heart failure chronicity: unspecified Heart failure type: unspecified Pulmonary edema J81.0 Chronicity: acute Acute respiratory failure with hypoxia J96.01 Acute hypokalemia E87.6 AMBER (acute kidney injury) N17.9
[2022-08-23] VITALS (17 sets, daily range): BP systolic 118–138; BP diastolic 68–86; PULSE 67–99; RESP 16–20; TEMP 36.1–37.3; O2SAT 86–99
[2022-08-23] MEDS: ALPRAZolam 0.5 mg Tablet PO ×2 (00:02→07:56)
[2022-08-23] MEDS: FUROsemide 40 mg Tablet 80 MG PO (00:02)
[2022-08-23] MEDS: ipratropium-albuterol 3 mL Neb INHALATION ×4 (03:23→15:02)
[2022-08-23 05:37] LABS: Basophils # 0.1 10^3/uL (0.0-0.1); Basophils % 0.9 %; Eosinophils # 0.4 10^3/uL (0.0-0.8); Eosinophils % 2.6 %; Hematocrit 39.9 % (37.0-47.0); Lymphocytes # 2.8 10^3/uL (0.8-4.8); Lymphocytes % 17.5 %; Mean Corpuscular HGB Conc 32.6 g/dL (30.0-36.0); Mean Corpuscular Hemoglobin 29.8 pg (28.0-34.0); Mean Corpuscular Volume 91.5 fl (81-99); Mean Platelet Volume 11.6 fL (7.4-10.4); Monocytes # 0.9 10^3/uL (0.2-0.9); Monocytes % 5.3 %; Neutrophils # 11.56 10^3/uL (1.8-7.7); Nucleated Red Blood Cells % 0 %; Platelet Count 333 10^3/cmm (130-400); Red Blood Count 4.36 10^6/uL (4.1-5.3); Red Cell Distribution Width 15.1 % (12.1-15.1); White Blood Count 16.1 10^3/uL (4.0-10.0)
[2022-08-23] MEDS: levoFLOXacin 750 mg Tablet PO (05:39)
[2022-08-23] MEDS: methadone 10 mg Tablet 80 MG PO (05:40)
[2022-08-23 05:57] LABS: Albumin Level 2.6 g/dL (3.5-5.2); Blood Urea Nitrogen 14 mg/dL (6-20); Calcium 8.7 mg/dL (8.5-10.5); Carbon Dioxide 27 mmol/L (22-29); Chloride 100 mmol/L (98-107); Glomerular Filtration Rate 131.1 mL/min (90-130); Glucose 102 mg/dL (65-115); Magnesium 1.1 mg/dL (1.7-2.3); Phosphorus 3.8 mg/dL (2.5-4.5); Sodium 140 mmol/L (136-145)
[2022-08-23 06:04] LABS: Anion Gap 17.2 (5-19); Potassium 4.2 mmol/L (3.5-5.1)
[2022-08-23] MEDS: doxycycline 100 mg Tablet PO (07:56)
[2022-08-23] MEDS: heparin 5,000 unit/mL INJ 1 mL 5000 UNIT SUBCUT (07:57)
[2022-08-23] MEDS: amlodipine 10 mg Tablet PO (07:57)
[2022-08-23] MEDS: sennosides-docusate Tablet 1 TAB PO (07:57)
[2022-08-23] MEDS: sertraline 50 mg Tablet PO (07:57)
[2022-08-23] MEDS: budesonide 0.5 mg/2 mL Neb INHALATION (08:02)
[2022-08-23] MEDS: nystatin powder 15 gm Btl 1 APPLIC TOPICAL (08:02)
--- NOTE | 2022-08-23 09:53 | P.DS_ITS ---
Discharge Providers Date of Admission: 08/16/22 14:45 Date of Discharge: August 23, 2022 Attending Provider at Admission: Gonzalo Doyle MD Attending Provider at Discharge: Alfa Parrish MD Primary Care Provider: Gerardo Coon MD Diagnoses at Discharge Discharge Diagnosis (1) Community acquired pneumonia: Status: Acute (2) CHF (congestive heart failure): Status: Acute Qualifiers: Heart failure chronicity: unspecified Heart failure type: unspecified Qualified Code(s): I50.9 - Heart failure, unspecified (3) Pulmonary edema: Status: Acute Qualifiers: Chronicity: acute Qualified Code(s): J81.0 - Acute pulmonary edema (4) Acute respiratory failure with hypoxia: Status: Acute (5) Acute hypokalemia: Status: Acute (6) AMBER (acute kidney injury): Status: Acute Reason for Visit Reason for Visit: SOB Hospital Course Hospital Course 47 year old female with past medical history of hypertension came in with chief complaint of worsening of shortness of breath, during this hospital stay she was managed for community-acquired pneumonia, as well as decompensated heart failure with preserved ejection fraction, CTA chest abdomen and pelvis done during the hospital stay, showed no pulmonary embolism, predominantly suggestive of pulmonary edema with possible superimposed pneumonia, 2D echo done during the hospital stay showed:?LV systolic function is normal with EF of 60 to 65%.Mild mitral regurgitation,Mild aortic stenosis,Mild tricuspid regurgitation. blood culture was negative, urine Legionella antigen and bacterial antigen panel was negative, MRSA PCR was negative, patient was kept on IV diuresis, doxycycline, later levofloxacin was added, supplemental oxygen as needed, nebs, and other conservative respiratory support measures, to which she responded well, At the time of discharge shortness of breath is significantly improved, she was afebrile hemodynamically stable, she was discharged on p.o. Lasix, oral potassium, albuterol inhaler as needed, as well as budesonide inhaler, at the time of discharge for WBC count was trending up, she has been discharged on p.o. levofloxacin for additional 7 days, she has been asked to do repeat CBC in a week, and meet her primary care physician, with the results, in case of any fever, or any worsening of symptoms, she has been asked to, come back to the ER. Patient had qualified for 4 Ls home oxygen. Currently she is being discharged in stable condition to home. She will continue to follow with her PCP as outpatient. Physical Exam Const: COMMON NORMALS: patient oriented x3 HENMT: COMMON NORMALS: normocephalic and atraumatic HEAD & SCALP: normocephalic and atraumatic Resp: COMMON NORMALS: normal respiratory effort, No retractions, No use of accessory muscles and clear to auscultation bilaterally EFFORT & INSPECTION: Yes symmetric chest movement AUSCULTATION: clear to auscultation bilaterally Cardio: COMMON NORMALS: regular rate, regular rhythm, S1 normal heart sound present, S2 normal heart sound present, No gallops present (Cardio), No murmurs present (Cardio), No rub (Cardio) and Peripheral pulses 2+ throughout RATE: regular rate RHYTHM: regular rhythm HEART SOUNDS: S1 normal heart sound present and S2 normal heart sound present PERIPHERAL PULSES: Peripheral pulses 2+ throughout GI: COMMON NORMALS: Normal to inspection, nondistended, normoactive bowel sounds present, Soft to palpation, non-tender, No hepatosplenomegaly present and no masses AUSCULTATION: Yes normoactive bowel sounds PALPATION: Yes Soft to palpation and Yes No hepatosplenomegaly present RECTAL EXAM: deferred Extremity: COMMON NORMALS: no clubbing, cyanosis or edema and no pedal edema Neuro: COMMON NORMALS: patient oriented x3 Urinary Catheter Management: Leal: Cath Placed During This Visit: yes Reason for Continuing Indwelling Catheter: Accurate Measurement of Urinary Output in Critically Ill Patients Urinary Catheter Date of Insertion: 08/16/22 Urinary Catheter Time of Insertion: 17:20 Discharge Data Studies Completed and Pending Completed Studies During Hospitalization Category [place] [id number] Routine Cat Scan 08/18/22 09:02 Completed CTA chest [CT angio chest PE protcl [id number]] Stat Cat Scan 08/16/22 12:11 Completed XR chest 1V portable [id number] Routine Exams 08/20/22 14:54 Completed XR chest 1V portable [id number] Stat Exams 08/16/22 11:15 [place] [id number] Routine Ultrasound 08/19/22 09:47 Completed CV. echo complete* [id number] Routine Ultrasound 08/16/22 16:41 Completed Pending at discharge Category Date Time Status Fungitell Glucan Assay (Blood) Routine Lab 08/18/22 12:58 Ordered Pneumocystis PCP [Pneumocystis jiroveci Qual PCR] Lab 08/18/22 12:58 Ordered Routine Sputum Culture and Gram Stain Routine Lab 08/19/22 09:42 Uncollected Radiology Impressions Chest CTA 08/16/22 12:11 IMPRESSION: 1. No central pulmonary thromboembolism is appreciated. 2. There is diffuse heterogeneity and ground-glass attenuation overall throughout the hemithoraces with mid to lower lung distribution predominance. This could be seen with edema. Some superimposed processes including secondary as well as atypical inflammation could also present in this fashion with some patchy and slightly nodular coalescence for example adjacent to the left fissure. Would recommend comparison any previous older CT if clinically available versus follow-up after clinical therapy to evaluate for interval change or stability given the asymmetric nodular coalescence more so on the left. 3. There are abnormally enlarged mediastinal and hilar lymph nodes demonstrated overall throughout. 4. There is some hepatic steatosis present along with trace gallbladder sludge. There is also subtle wall thickening suggested about the gallbladder as well as borderline appearance of the bile ducts although incompletely included. Some early gallbladder inflammation as well as hepatic disease could also present in this fashion. Consider right upper quadrant ultrasound as well as associated biliary and hepatic profile studies. 5. There is some cardiac chamber overall left more so than right. Consider echocardiography. Chest/Abdomen/Pelvis CT 08/18/22 09:02 IMPRESSION: 1. Severe, multilobar, bilateral dense pulmonary consolidations with adjacent groundglass attenuation. Most likely due to pneumonitis, consider Covid 19 pneumonitis. Additional considerations are pulmonary edema and pneumonia. 2. Study performed without IV contrast which limits evaluation for masses and inflammation. 3. Nonobstructing LEFT renal calcifications. 4. Normal appendix. 5. No ascites or adenopathy within the abdomen or pelvis. 6. Gallbladder sludge versus small stones or vicarious excretion of contrast. RIGHT upper quadrant ultrasound may be helpful to evaluate the gallbladder. Chest X-Ray 08/20/22 14:54 IMPRESSION: 1. Significantly improved bilateral pulmonary infiltrates. There is still residual groundglass infiltrate and scattered airspace opacities. 2. Although technique is somewhat different the heart appears to be slightly smaller than noted previously Laboratory Results WBC 16.1 10^3/uL (4.0-10.0) H 08/23/22 05:20 RBC 4.36 10^6/uL (4.1-5.3) 08/23/22 05:20 Hgb 13.0 g/dL (11.5-15.3) 08/23/22 05:20 Hct 39.9 % (37.0-47.0) 08/23/22 05:20 MCV 91.5 fl (81-99) 08/23/22 05:20 MCH 29.8 pg (28.0-34.0) 08/23/22 05:20 MCHC 32.6 g/dL (30.0-36.0) 08/23/22 05:20 RDW 15.1 % (12.1-15.1) 08/23/22 05:20 Plt Count 333 10^3/cmm (130-400) 08/23/22 05:20 MPV 11.6 fL (7.4-10.4) H 08/23/22 05:20 Neut % (Auto) 72.0 % 08/23/22 05:20 Lymph % (Auto) 17.5 % 08/23/22 05:20 [place] % (Auto) 5.3 % 08/23/22 05:20 Eos % (Auto) 2.6 % 08/23/22 05:20 Baso % (Auto) 0.9 % 08/23/22 05:20 Neut # (Auto) 11.56 10^3/uL (1.8-7.7) H 08/23/22 05:20 Lymph # (Auto) 2.8 10^3/uL (0.8-4.8) 08/23/22 05:20 [place] # (Auto) 0.9 10^3/uL (0.2-0.9) 08/23/22 05:20 Eos # (Auto) 0.4 10^3/uL (0.0-0.8) 08/23/22 05:20 Baso # (Auto) 0.1 10^3/uL (0.0-0.1) 08/23/22 05:20 Nucleated RBC % (auto) 0 % 08/23/22 05:20 Total Counted 100 (0-100) 08/18/22 02:32 Atypical Lymphs % Not Reportable 08/18/22 02:32 Segmented Neutrophils 91 % 08/18/22 02:32 Abs Segm Neuts (Man) 18.2 10/cmm (1.6-7.1) H 08/18/22 02:32 Band Neutrophils Not Reportable 08/18/22 02:32 Lymphocytes (Manual) 8 % 08/18/22 02:32 Monocytes (Manual) 0.0 % 08/18/22 02:32 Absolute Monocytes 0.0 10^3/cmm (0.1-0.6) L 08/18/22 02:32 Eosinophils (Manual) 1 % 08/18/22 02:32 Absolute Eosinophils 0.2 10^3/cmm (0.0-0.7) 08/18/22 02:32 Basophils (Manual) 0.0 % 08/18/22 02:32 Absolute Basophils 0.0 10^3/cmm (0.0-0.2) 08/18/22 02:32 Nucleated RBCs # 0.0 /100WBC 08/23/22 05:20 Platelet Estimate Normal (Normal) 08/18/22 02:32 D-Dimer 4.11 ug/mIFEU (0-0.59) H 08/16/22 11:25 Specimen Type Arterial 08/20/22 04:42 Sample Site Radial, right 08/20/22 04:42 ABG pH 7.36 (7.35-7.45) 08/20/22 04:42 ABG pCO2 46.0 mmHg (35-45) H 08/20/22 04:42 ABG pO2 162.0 mmHg (80.0-100.0) H 08/20/22 04:42 ABG HCO3 26.1 mmol/L (22-26) H 08/20/22 04:42 ABG Base Excess 0.0 mmol/L (-2.0-2.0) 08/20/22 04:42 Eugene Test Pos 08/20/22 04:42 VBG pH 7.40 (7.32-7.42) 08/19/22 02:17 VBG pCO2 44.8 mmHg (41-51) 08/19/22 02:17 VBG pO2 55.6 mmHg (25-40) H 08/19/22 02:17 VBG HCO3 27.5 mmol/L (24-28) 08/19/22 02:17 VBG Base Excess 2.1 mmol/L (-3.0-3.0) 08/19/22 02:17 VBG Hematocrit 41.8 % (37-47) 08/19/22 02:17 Hematocrit 54.2 % (37-47) H 08/20/22 04:42 Hgb O2 Saturation 88.3 % (95-100) L 08/16/22 11:21 Carboxyhemoglobin 1.7 %THgb (0.4-20.1) 08/16/22 11:21 Methemoglobin 0.2 % (0.4-1.5) L 08/16/22 11:21 Total Hemoglobin 15.2 g/dL (12-16) 08/16/22 11:21 O2 Delivery Device Bipap 08/20/22 04:42 FiO2 65.0 % 08/20/22 04:42 Funeral Pre Arrangement Counselor ID Wilfrido 08/20/22 04:42 Sodium 140 mmol/L (136-145) 08/23/22 05:20 Potassium 4.2 mmol/L (3.5-5.1) 08/23/22 05:20 Chloride 100 mmol/L (98-107) 08/23/22 05:20 Carbon Dioxide 27 mmol/L (22-29) 08/23/22 05:20 Anion Gap 17.2 (5-19) 08/23/22 05:20 BUN 14 mg/dL (6-20) 08/23/22 05:20 Creatinine 0.5 mg/dL (0.5-0.9) 08/23/22 05:20 GFR Calculation 131.1 mL/min (90-130) H 08/23/22 05:20 Glucose 102 mg/dL (65-115) 08/23/22 05:20 Estimat Average Glucose 134 08/16/22 11:25 Hemoglobin A1c 6.3 % (4.0-6.0) H 08/16/22 11:25 Calculated Osmolality 294 mOsm/kg (285-295) 08/22/22 04:22 Lactic Acid 4.6 mmol/L (0.5-2.2) H* 08/16/22 11:25 Lactic Acid (Sepsis) 3.9 mmol/L (0.5-2.2) H 08/16/22 13:34 Lactate 1.3 mmol/L (0.5-2.2) 08/19/22 02:17 Calcium 8.7 mg/dL (8.5-10.5) 08/23/22 05:20 Phosphorus 3.8 mg/dL (2.5-4.5) 08/23/22 05:20 Magnesium 1.1 mg/dL (1.7-2.3) L 08/23/22 05:20 Total Bilirubin 0.5 mg/dL (0.15-1.2) 08/22/22 04:22 AST 47 U/L (0-32) H 08/22/22 04:22 ALT 25 U/L (0-33) 08/22/22 04:22 Alkaline Phosphatase 353 U/L (35-105) H 08/22/22 04:22 Lactate Dehydrogenase 536 U/L (135-214) H 08/18/22 02:32 Troponin T Baseline 10 ng/L (0-10) 08/16/22 11:25 Troponin T 120 Minute 12.31 ng/L (0-10) H 08/16/22 13:34 Delta Troponin T 2.31 ABS# (0-10) 08/16/22 13:34 Troponin T Hi Sens 6Hr 13.42 ng/L (0-10) H 08/16/22 18:00 Troponin T Hi Sens 6Hr Delta 3.42 ng/L (0-12) 08/16/22 18:00 C-Reactive Protein 340.3 mg/L (0.0-4.9) H 08/17/22 03:00 NT-Pro-B Natriuret Pep 2881 pg/mL (0-125) H 08/16/22 11:25 Total Protein 6.4 g/dL (6.6-8.7) L 08/22/22 04:22 Albumin 2.6 g/dL (3.5-5.2) L 08/23/22 05:20 Globulin 4.1 g/dL (1.3-4.6) 08/22/22 04:22 Procalcitonin 3.73 ng/mL (0-0.5) H 08/20/22 04:01 TSH 2.52 uIU/mL (0.27-4.20) 08/16/22 11:25 Urine Color Yellow (Yellow) 08/16/22 15:24 Urine Appearance Hazy (CLEAR) A 08/16/22 15:24 Urine pH 5 (5-7) 08/16/22 15:24 Ur Specific [place] 1.000 (1.005-1.030) L 08/16/22 15:24 Urine Protein Trace (Negative) 08/16/22 15:24 Urine Glucose (UA) Norm (Normal) 08/16/22 15:24 Urine Ketones Negative (Negative) 08/16/22 15:24 Urine Blood 3+ (Negative) H 08/16/22 15:24 Urine Nitrate Negative (Negative) 08/16/22 15:24 Urine Bilirubin Neg (Negative) 08/16/22 15:24 Urine Urobilinogen 4 mg/dL (Negative) H 08/16/22 15:24 Ur Leukocyte Esterase Negative (Negative) 08/16/22 15:24 Urine RBC 0-4 /hpf (0-2) H 08/16/22 15:24 Urine WBC 5-10 /hpf (0-5) H 08/16/22 15:24 Ur Eosinophil Smear 0 (0-0) 08/20/22 09:40 Ur Squamous Epith Cells 15-25 /hpf (0-5) H 08/16/22 15:24 Amorphous Sediment Not Reportable 08/16/22 15:24 Urine Bacteria 1+ /hpf (NONE) H 08/16/22 15:24 Urine Mucus Trace /hpf 08/16/22 15:24 Urine Eosinophils No eosinophils seen 08/20/22 09:40 Ur Random Sodium 53 mmol/L 08/20/22 09:40 Ur Random Chloride < 10 mmol/L 08/20/22 09:40 Urine Creatinine 125 mg/dL (28-217) 08/20/22 09:40 Nasal Influ A H1 2008 PCR Not detected (NOT DETECT) 08/18/22 11:45 Vancomycin Trough 28.0 ug/mL (10-15) H* 08/19/22 16:34 Adenovirus (PCR) Not detected (NOT DETECT) 08/18/22 11:45 C. pneumoniae DNA (PCR) Not detected (NOT DETECT) 08/18/22 11:45 Coronavirus 229E (PCR) Not detected (NOT DETECT) 08/18/22 11:45 Human Metapneumovir PCR Not detected (NOT DETECT) 08/18/22 11:45 Influenza A (H1) PCR Not detected (NOT DETECT) 08/18/22 11:45 Influenza A (H3) PCR Not detected (NOT DETECT) 08/18/22 11:45 Influenza Type A (PCR) Not detected (NOT DETECT) 08/18/22 11:45 Influenza Type B (PCR) Not detected (NOT DETECT) 08/18/22 11:45 M. pneumoniae (PCR) Not detected (NOT DETECT) 08/18/22 11:45 Parainfluenza 1 (PCR) Not detected (NOT DETECT) 08/18/22 11:45 Parainfluenza 2 (PCR) Not detected (NOT DETECT) 08/18/22 11:45 Parainfluenza 3 (PCR) Not detected (NOT DETECT) 08/18/22 11:45 Parainfluenza 4 (PCR) Not detected (NOT DETECT) 08/18/22 11:45 RSV Type A (PCR) Not detected (NOT DETECT) 08/18/22 11:45 RSV Type B (PCR) Not detected (NOT DETECT) 08/18/22 11:45 Entero/Rhino (PCR) Not detected (NOT DETECT) 08/18/22 11:45 SARS-CoV-2 (PCR) Not detected (NOT DETECT) 08/18/22 11:45 Vitals Last Vital Signs Temp 98.9 F 08/23/22 07:25 Pulse 83 08/23/22 08:16 Resp 18 08/23/22 08:03 BP 121/77 08/23/22 07:25 Pulse Ox 95 08/23/22 08:03 O2 Del Method Nasal Cannula 08/23/22 08:03 O2 Flow Rate 2.5 08/23/22 08:03 FiO2 35 08/23/22 03:20 Discharge Plan Discharge Patient Disposition: Home Condition: Stable Prescriptions: New Ventolin HFA 90 mcg/actuation HFA aerosol inhaler 1 inh inhalation Q6H PRN (Reason: shortness of breath or wheezing) Qty: 6.7 0RF Pulmicort Flexhaler 90 mcg/actuation aerosol powdr breath activated 1 inh inhalation BID Qty: 1 0RF levofloxacin 750 mg tablet 750 mg PO DAILY 7 Days Qty: 7 0RF Lasix 40 mg tablet 40 mg PO DAILY 30 Days Qty: 30 3RF Klor-Con M20 20 mEq tablet,ER particles/crystals 20 meq PO DAILY Qty: 30 3RF Continued methadone 10 mg Tablet 5 mg PO DAILY bisoprolol-hydrochlorothiazide 10-6.25 mg tablet 1 tab PO DAILY hydroxyzine HCl 50 mg tablet 50 mg PO TID PRN (Reason: Anxiety) methadone 40 mg Tablet,Soluble 80 mg PO DAILY amlodipine 10 mg tablet 10 mg PO DAILY sertraline 50 mg tablet 50 mg PO DAILY Discharge Orders: Discharge Order (Routine); Ordered 08/23/22 Ordered By: Alfa Parrish Other Ambulatory Orders: Complete Blood Count w/Auto (Routine) Timeframe: 1 Week Location: Determined by Patient Ordered By: Alfa Parrish DME: Oxygen (Order) Location: None Selected Ordered By: Alfa Parrish Referrals: [facility] [place] [Outside] Kirsten Broussard MD [Referring] - 08/25/22 1:40 pm Patient Instructions: Furosemide (By mouth), Albuterol (By breathing) (ProAir, AccuNeb, Proventil, Proventil..., Potassium Chloride (By mouth), Levofloxacin (By mouth), Budesonide (By breathing) (Flex de Pulmicort, Pulmicort Flexhaler,..., Pneumonitis (DC), CHF Stoplight, Opioid Safety Discharge Attestations Time Spent in Discharge Care*: less than 30 min Quality Metrics Clinical Quality Measures [ No reported AMI, CVA or VTE this stay] Coding Level of Care Code Acute Code for [facility] Fwd Diagnoses Community acquired pneumonia J18.9 CHF (congestive heart failure) I50.9 Heart failure chronicity: unspecified Heart failure type: unspecified Pulmonary edema J81.0 Chronicity: acute Acute respiratory failure with hypoxia J96.01 Acute hypokalemia E87.6 AMBER (acute kidney injury) N17.9
--- NOTE | 2022-08-23 10:54 | PC.NURSE ---
No IV for Magnesium and Lasix administration. okayed. Mel out. Discharge orders in computer, awaiting O2 eval results. Patient reports family cannot pick - up until later this evening.
--- NOTE | 2022-08-23 11:31 | PC.NURSE ---
Patient's ride will not be able to pick her up until really late this evening.
--- NOTE | 2022-08-23 16:59 | PC.NURSE ---
Pt discharges home with family/friend Sarah. Urinated post matthews removal. Paperwork completed. Education provided. Oxygen sent with patient. All belongings sent. Escorted with w/c to private vehicle.
== END 2022-08-23 17:00 | disposition home or self-care (01) | DRG 291 ==
LOC: ER 14:45 → ICU 15:52 → MEDSURG 08-20 14:54
PROVIDERS: Internal Medicine; Student in an Organized Health Care Education/Training Program; Admitting Provider Internal Medicine; Emergency Provider Emergency Medicine; PCP Family Medicine; Visit Provider Internal Medicine
DX: I11.0 Hypertensive heart disease with heart failure (principal); I50.33 Acute on chronic diastolic (congestive) heart failure; J18.9 Pneumonia, unspecified organism; J96.01 Acute respiratory failure with hypoxia; N17.8 Other acute kidney failure; F17.200 Nicotine dependence, unspecified, uncomplicated; E66.9 Obesity, unspecified; Z68.36 Body mass index [BMI] 36.0-36.9, adult; E87.6 Hypokalemia; G47.30 Sleep apnea, unspecified; N14.19 Nephropathy induced by other drugs, medicaments and biological substances; T50.1X5A Adverse effect of loop [high-ceiling] diuretics, initial encounter; M54.9 Dorsalgia, unspecified
CPT/HCPCS: 36415; 36600; 51702; 71045; 71250; 71275; 74176; 80048; 80053; 80069; 80202; 81001; 82436; 82570; 82803; 82805; 83036; 83605; 83615; 83735; 83880; 84100; 84145; 84300; 84443; 84484; 85007; 85025; 85027; 85378; 85999; 86140; 86403; 87040; 87449; 87486; 87581; 87633; 87641; 93005; 93306; 93970; 94640; 94660; 94760; 96365; 96372; 96375; 96376; 97116; 97161; 97530; 99285; J1644; J1650; J1940; J3370; J3480; J3490; J7030; J7608; J7626; Q9967

== ENCOUNTER 2023-03-26 13:57 | Inpatient (IN) | payer MEDICAID, SELFPAY ==
[2023-03-26] VITALS (37 sets, daily range): BP systolic 91–177; BP diastolic 50–105; PULSE 64–103; RESP 11–26; TEMP 37.7–38.2; O2SAT 88–97; BMI 38.7; BMI 39.9
--- NOTE | 2023-03-26 13:59 | XRR_ITS ---
PROCEDURE INFORMATION: Exam: XR Chest Exam date and time: 03/26/2023 2:37 PM Age: 48 years old Clinical indication: Dyspnea; Patient HX: Chest pain; Cough TECHNIQUE: Imaging protocol: Radiologic exam of the chest. Views: 1 view. COMPARISON: CR XR chest 1V portable [id number] 08/20/2022 2:33 PM FINDINGS: Lungs: Diffuse coarsening of the lung parenchyma with patulous opacities throughout both lungs. Pleural spaces: Unremarkable. No pleural effusion. No pneumothorax. Heart/Mediastinum: Unremarkable. No cardiomegaly. Bones/joints: Unremarkable. XR/XR chest 1V portable [id number] IMPRESSION: Diffuse coarsening of the lung parenchyma and patulous opacities noted throughout both lungs, similar to prior exam.
--- NOTE | 2023-03-26 14:06 | ED_ITS ---
HPI - SOB/Dyspnea 2 General: Chief Complaint: Shortness of Breath/Dyspnea Stated Complaint: SOB Time Seen by Provider: 03/26/23 13:59 Source: patient Mode of arrival: EMS History of Present Illness: HPI Narrative: 48-year-old female presents emergency ro om complaining of shortness of breath difficulty breathing that is been getting grossly worse for the last day and a half. She initially noticed symptoms about 3 to 4 days ago with cough she denies any diarrhea denies any anosmia. She denies any chest pain at this time. She has no history of PE. No history of coronary artery disease does have a history of hypertension. Family reports she has had episodes of congestive heart failure in the past. Normally is not on oxygen and is requiring 6 L by nasal cannula to maintain saturations has sat of 100.4. MD elicited complaint: shortness of breath and cough Pertinent past history: congestive heart failure Onset (ago): day(s) (3-4) Timing: constant and progressively worsening Severity: moderate Associated symptoms: Deny abdominal pain, chest pain or fever(s) Review of Systems 2 Const: Denies: fever(s) or chills Card: Denies: chest pain Resp: Denies: dyspnea GI: Denies: abdominal pain : Denies: dysuria, urinary frequency or urinary urgency Musc: Denies: neck pain or back pain Skin/Breast: Denies: rash PFSH ED 2 PFSH: Medical History Elevated lactic acid level CHF (congestive heart failure) Opiate dependence Hypertension Surgical History No significant past surgical history Family History Other CAD (coronary artery disease) Social History Smoking and tobacco/nicotine status: current every day tobacco/nicotine user Alcohol intake: former Substance/Drug Use: unknown Physical Exam 2 Const: GENERAL APPEARANCE: cooperative and comfortable O RIENTATION/CONSCIOUSNESS: Yes awake, Yes oriented to person, Yes oriented to place and Yes oriented to time HENMT: COMMON NORMALS: normocephalic, atraumatic and hearing grossly normal bilaterally HEAD & SCALP: normocephalic and atraumatic Resp: COMMON NORMALS: normal respiratory effort, No retractions and No use of accessory muscles AUSCULTATION: wheezes Cardio: COMMON NORMALS: No murmurs present (Cardio) RATE: tachycardic GI: COMMON NORMALS: Soft to palpation and No hepatosplenomegaly present A USCULTATION: Yes normoactive bowel sounds PALPATION: Yes Soft to palpation, No Tenderness to palpation present (GI), No Guarding due to palpation present (GI) and Yes No hepatosplenomegaly present Extremity: COMMON NORMALS: normal to inspection, capillary refill normal, no clubbing, cyanosis or edema, no calf tenderness and no pedal edema Neuro: SENSORIUM/ORIENTATION: Yes oriented to person, Yes oriented to place and Yes oriented to time Skin: COMMON NORMALS: no rashes or lesions noted GENERAL SKIN EXAM: no rashes or lesions noted Course 2 Vital Signs: Vital signs: Vital Signs Temperature 98.3 F 03/31/23 11:30 Pulse Rate 70 03/31/23 11:30 Respiratory Rate 16 03/31/23 11:30 Blood Pressure 133/72 03/31/23 11:30 Pulse Oximetry 96 03/31/23 11:30 Oxygen Delivery Me thod Nasal Cannula 03/31/23 08:44 Oxygen Flow Rate 3 03/31/23 08:44 Fraction of Inspir ed Oxygen 40 03/27/23 08:00 MDM - SOB/Dyspnea Medical Decision Making Acute hypercapnic respiratory failure with pneumonia initiate antibiotics aggressive pulmonary toilet discussed with hospitalist orders written. Admit to ICU. Labs and imaging reviewed. May also have vape use injury to the lungs. Initial antibiotic started. Medical Records I reviewed the patient's medical records. Lab Data I reviewed the patient's lab results. 03/31/23 04:20 03/31/23 04:20 Labs/Radiology: Radiology Impressions Chest CTA 03/26/23 16:13 IMPRESSION: Bilateral pneumonia. Chest X-Ray 03/27/23 07:00 IMPRESSION: Persistent extensive bilateral airspace opacities, corresponding to known multifocal pneumonia. Laboratory Results WBC 12.85 10^3/uL (3.29-11.43) H 03/26/23 15:50 RBC 4.54 10^6/uL (3.85-5.65) 03/26/23 15:50 Hgb 13.80 g/dL (11.27-16.99) 03/26/23 15:50 Hct 38.6 % (36-47) 03/26/23 15:50 MCV 85.0 fl (85-98) 03/26/23 15:50 MCH 30.4 pg (27-33) 03/26/23 15:50 MCHC 35.8 g/dL (30-55) 03/26/23 15:50 RDW 13.7 % (12.1-15.1) 03/26/23 15:50 Plt Count 157 10^3/cmm (157-399) 03/26/23 15:50 MPV 12.3 fL (7.4-10.4) H 03/26/23 15:50 Neut % (Auto) 75.9 % 03/26/23 15:50 Lymph % (Auto) 19.5 % 03/26/23 15:50 [place] % (Auto) 4.0 % 03/26/23 15:50 Eos % (Auto) 0.0 % 03/26/23 15:50 Baso % (Auto) 0.2 % 03/26/23 15:50 Neut # (Auto) 9.74 10^3/uL (1.8-7.7) H 03/26/23 15:50 Lymph # (Auto) 2.5 10^3/uL (0.8-4.8) 03/26/23 15:50 [place] # (Auto) 0.5 10^3/uL (0.2-0.9) 03/26/23 15:50 Eos # (Auto) 0.0 10^3/uL (0.0-0.8) 03/26/23 15:50 Baso # (Auto) 0.0 10^3/uL (0.0-0.1) 03/26/23 15:50 Nucleated RBC % (auto) 0 % 03/26/23 15:50 Nucleated RBCs # 0.0 /100WBC 03/26/23 15:50 PT 15.30 SECONDS (12.1-14.9) H 03/26/23 13:10 INR 1.17 (0.8-1.2) 03/26/23 13:10 D-Dimer 2.61 ug/mLFEU (0-0.59) H 03/26/23 15:50 Specimen Type Arterial 03/26/23 16:11 Sample Site Radial, left 03/26/23 16:11 ABG pH 7.51 (7.35-7.45) H 03/26/23 16:11 ABG pCO2 35.1 mmHg (35-45) 03/26/23 16:11 ABG pO2 80.6 mmHg (80.0-100.0) 03/26/23 16:11 ABG PO2/FiO2 Ratio 0 03/26/23 16:11 ABG HCO3 28.1 mmol/L (22-26) H 03/26/23 16:11 ABG Base Excess 5.2 mmol/L (-2.0-2.0) H 03/26/23 16:11 Eugene Test Pos 03/26/23 16:11 Hematocrit 43.0 % (37-47) 03/26/23 16:11 O2 Delivery Device Nc 03/26/23 16:11 O2 Liters/Min 30.0 % 03/26/23 16:11 FiO2 60.0 % 03/26/23 16:11 Rehabilitation Worker ID [place] 03/26/23 16:11 Sodium 133 mmol/L (136-145) L 03/26/23 15:50 Potassium 3.0 mmol/L (3.5-5.1) L 03/26/23 15:50 Chloride 97 mmol/L (98-107) L 03/26/23 15:50 Carbon Dioxide 26 mmol/L (22-29) 03/26/23 15:50 Anion Gap 13.0 (5-19) 03/26/23 15:50 BUN 10 mg/dL (6-20) 03/26/23 15:50 Creatinine 0.8 mg/dL (0.5-0.9) 03/26/23 15:50 GFR Calculation 75.9 mL/min (90-130) L 03/26/23 15:50 Glucose 95 mg/dL (65-115) 03/26/23 15:50 Calculated Osmolality 275 mOsm/kg (285-295) L 03/26/23 15:50 Lactic Acid 1.5 mmol/L (0.5-2.2) 03/26/23 15:50 Calcium 8.6 mg/dL (8.5-10.5) 03/26/23 15:50 Magnesium 1.8 mg/dL (1.7-2.3) 03/26/23 15:50 Total Bilirubin 1.0 mg/dL (0.15-1.2) 03/26/23 15:50 AST 57 U/L (0-32) H 03/26/23 15:50 ALT 27 U/L (0-33) 03/26/23 15:50 Alkaline Phosphatase 294 U/L (35-105) H 03/26/23 15:50 Troponin T Baseline 21 ng/L (0-10) H 03/26/23 15:50 C-Reactive Protein 177.9 mg/L (0.0-4.9) H 03/26/23 15:50 NT-Pro-B Natriuret Pep 335 pg/mL (0-125) H 03/26/23 15:50 Total Protein 7.2 g/dL (6.6-8.7) 03/26/23 15:50 Albumin 3.1 g/dL (3.5-5.2) L 03/26/23 15:50 Globulin 4.1 g/dL (1.3-4.6) 03/26/23 15:50 Procalcitonin 0.50 ng/mL (0-0.5) 03/26/23 15:50 TSH 0.91 uIU/mL (0.27-4.20) 03/26/23 15:50 Urine Color Light yellow (Yellow) 03/26/23 14:19 Urine Appearance Clear (CLEAR) 03/26/23 14:19 Urine pH 7 (5-7) 03/26/23 14:19 Ur Specific [place] 1.005 (1.005-1.030) 03/26/23 14:19 Urine Protein Neg (Negative) 03/26/23 14:19 Urine Glucose (UA) Norm (Normal) 03/26/23 14:19 Urine Ketones Negative (Negative) 03/26/23 14:19 Urine Blood Neg (Negative) 03/26/23 14:19 Urine Nitrate Negative (Negative) 03/26/23 14:19 Urine Bilirubin Neg (Negative) 03/26/23 14:19 Urine Urobilinogen Norm mg/dL (Negative) 03/26/23 14:19 Ur Leukocyte Esterase Negative (Negative) 03/26/23 14:19 Coronavirus 229E (PCR) Not detected (NOT DETECT) 03/26/23 14:19 Influenza Type A Ag negative (Negative) 03/26/23 14:19 Influenza Type B Ag negative (Negative) 03/26/23 14:19 SARS-CoV-2 (PCR) Not detected (NOT DETECT) 03/26/23 14:19 All radiology interpretation(s) finalized by discharge Discharge Plan Discharge Patient Disposition: Admitted As Inpatient Admit Provider: Susan Gary Clinical Impression: Acute on chronic respiratory failure with hypoxia and hypercapnia, Acute exacerbation of chronic obstructive airways disease, Pneumonia Condition: Stable Discharge Diet: Cardiac Discharge Activity: Resume usual activity Coding Level of Care Code ED Sterile Process Tech for Josue Bray
[2023-03-26 14:37] LABS: Add Urine Microscopic? NO; Charge for UA Resulting for Rev
[2023-03-26 14:45] LABS: Bilirubin Urine Neg (Negative); Blood Urine Neg (Negative); Glucose Urine UA Norm (Normal); Influenza A by IFA negative (Negative); Influenza B by IFA negative (Negative); Ketones Urine Negative (Negative); Leukocyte Esterase Urine Negative (Negative); Nitrate Urine Negative (Negative); Protein Urine Neg (Negative); Specific Gravity, Urine 1.005 (1.005-1.030); Urine Appearance Clear (CLEAR); Urine Color Light yellow (Yellow); Urobilinogen Urine Norm (Negative); pH Urine 7 (5-7)
--- NOTE | 2023-03-26 15:45 | ECG_ITS ---
[facility] Test Date: 2023-03-26 Pat Name: Lavern Allen Department: Room: Gender: Female Therapy Tech: : 1975 Requested By: Rlel Dubon Order Number: [id number] Carson MD: Mraio Alberto Ocampo M.D. Measurements Intervals [place] Rate: 102 P: 72 [place]: 149 QRS: 58 QRSD: 105 T: 49 QT: 298 QTc: 390 Interpretive Statements SINUS TACHYCARDIA NONSPECIFIC T-WAVE ABNORMALITY Compared to ECG 08/16/2022 18:02:59 T-wave abnormality now present Sinus rhythm no longer present Myocardial infarct finding no longer present Electronically Signed On 03-27-2023 16:26:18 CARE GIVER by Mario Alberto Ocampo M.D. [id number]
[2023-03-26] MEDS: dexamethasone 10 mg/mL INJ IM (15:54)
[2023-03-26 15:59] LABS: Basophils % 0.2 %; Hematocrit 38.6 % (36-47); Lymphocytes # 2.5 10^3/uL (0.8-4.8); Lymphocytes % 19.5 %; Mean Corpuscular HGB Conc 35.8 g/dL (30-55); Mean Corpuscular Hemoglobin 30.4 pg (27-33); Mean Platelet Volume 12.3 fL (7.4-10.4); Monocytes # 0.5 10^3/uL (0.2-0.9); Neutrophils # 9.74 10^3/uL (1.8-7.7); Neutrophils % 75.9 %; Nucleated Red Blood Cells % 0 %; Platelet Count 157 10^3/cmm (157-399); Red Blood Count 4.54 10^6/uL (3.85-5.65); Red Cell Distribution Width 13.7 % (12.1-15.1); White Blood Count 12.85 10^3/uL (3.29-11.43)
[2023-03-26 16:08] LABS: Adenovirus Not Detected (NOT DETECT); Chlamydia Pneumoniae Not Detected (NOT DETECT); Coronavirus 229E,HKU1,NL63,OC4 Not Detected (NOT DETECT); Human Metapneumovirus Not Detected (NOT DETECT); Human Rhinovirus/Enterovirus Not Detected (NOT DETECT); Influenza A Not Detected (NOT DETECT); Influenza A H1 Not Detected (NOT DETECT); Influenza A H1-2009 Not Detected (NOT DETECT); Influenza A H3 Not Detected (NOT DETECT); Influenza B Not Detected (NOT DETECT); Mycoplasma Pneumoniae Not Detected (NOT DETECT); Parainfluenza Virus Type 1 Not Detected (NOT DETECT); Parainfluenza Virus Type 2 Not Detected (NOT DETECT); Parainfluenza Virus Type 3 Not Detected (NOT DETECT); Parainfluenza Virus Type 4 Not Detected (NOT DETECT); Respiratory Syncytial Virus A Not Detected (NOT DETECT); Respiratory Syncytial Virus B Not Detected (NOT DETECT); SARS-COV-2 Not Detected (NOT DETECT)
--- NOTE | 2023-03-26 16:11 | ECG_ITS ---
[facility] Test Date: 2023-03-26 Pat Name: Lavern Allen Department: Room: Gender: Female Archival Records Clerk: : 1975 Requested By: Attila Jo Order Number: [id number] Carson MD: Mario Alberto Ocampo M.D. Measurements Intervals [place] Rate: 92 P: 73 [place]: 150 QRS: 52 QRSD: 104 T: 67 QT: 401 QTc: 496 Interpretive Statements SINUS RHYTHM NONSPECIFIC T-WAVE ABNORMALITY Compared to ECG 03/26/2023 14:04:58 Sinus tachycardia no longer present T-wave abnormality still present Electronically Signed On 03-27-2023 16:25:49 DRUG SAFETY DATA MANAGEMENT SPECIALIST by Mario Alberto Ocampo M.D. [id number]
--- NOTE | 2023-03-26 16:13 | CTR_ITS ---
PROCEDURE INFORMATION: Exam: CTA Chest With Contrast Exam date and time: 03/26/2023 4:55 PM Age: 48 years old Clinical indication: Shortness of breath; Additional info: Hypoxia TECHNIQUE: Imaging protocol: Computed tomographic angiography of the chest with contrast. Exam focused on the arteries. 3D rendering (Not supervised by radiologist): MIP and/or 3D reconstructed images were created by the technologist. Radiation optimization: All CT scans at this facility use at least one of these dose optimization techniques: automated exposure control; mA and/or kV adjustment per patient size (includes targeted exams where dose is matched to clinical indication); or iterative reconstruction. Contrast material: OMNI 350; Contrast volume: 80 ml; Contrast route: INTRAVENOUS (IV); COMPARISON: CT angio chest PE protcl [id number] 08/16/2022 1:15 PM RADIATION DOSE METRICS: Total DLP (mGy-cm): 487.7 FINDINGS: Pulmonary arteries: Normal. No pulmonary emboli. Aorta: Unremarkable. No aortic aneurysm. No aortic dissection. Lungs: Patchy bilateral pulmonary infiltrates. Pleural spaces: Unremarkable. No pneumothorax. No pleural effusion. Heart: Unremarkable. No cardiomegaly. No pericardial effusion. Lymph nodes: There is mediastinal and perihilar lymphadenopathy similar to the prior CT scan. Bones/joints: Unremarkable. No acute fracture. Soft tissues: Unremarkable. CT/CT angio chest PE protcl [id number] IMPRESSION: Bilateral pneumonia.
[2023-03-26 16:19] LABS: D Dimer 2.61 ug/mLFEU (0-0.59)
[2023-03-26 16:21] LABS: Lactic Sepsis W/Reflex 1.5 mmol/L (0.5-2.2)
[2023-03-26 16:22] LABS: ABG PCO2 35.1 mmHg (35-45); ABG PH Result 7.51 (7.35-7.45); Base Excess ABG 5.2 mmol/L (-2.0-2.0); Blood Gas Allen Test Pos; Blood Gas Operator Identificat WALCI; Blood Gas Sample Site Radial, left; Blood Gas Sample Type Arterial; HCO3 ABG 28.1 mmol/L (22-26); Oxygen Device NC; PO2 ABG 80.6 mmHg (80.0-100.0); PO2 FiO2 Ratio Arterial Blood 0
[2023-03-26] MEDS: levofloxacin-dextrose 5 % 750 MG/150 ML PREMIX 100 MG IV (16:26)
[2023-03-26 16:27] LABS: NT Pro B Type Natriuretic Pept 335 pg/mL (0-125)
[2023-03-26 16:30] LABS: C Reactive Protein 177.9 mg/L (0.0-4.9); Magnesium 1.8 mg/dL (1.7-2.3); Thyroid Stimulating Hormone 0.91 uIU/mL (0.27-4.20)
--- NOTE | 2023-03-26 16:30 | PM.HP ---
Providers/Chief Complaint Primary Care Provider: Kirsten Broussard MD Chief Complaint: SOB History of Present Illness Lavern Allen is a 48 year old female with a past medical history of obesity, history of smoking quit 8 months ago, current history of vaping, history of diastolic CHF, history of back pain on methadone, hypertension, who presents to [facility] due to fatigue, malaise, fevers, cough, shortness of breath with exertion now at rest, for the last 5 days. Patient tells me that she quit smoking over a months ago since she was discharged in the hospital and she had pneumonia then, she tells me she has picked up vaping, she vapes daily, she tells me for the last 5 days she has felt sick, fatigue, malaise, her family is did test positive for strep throat, she had cough, fevers, but significantly she started developing shortness of breath, with exertion with a few feet 10 no shortness of breath at rest, on examination when patient came to the emergency room, she was in respiratory distress, placed on 7 L, currently she is on a high needed high flow on 30 L 30%, has nasal flaring and short of breath with a few words, has intercostal retractions,, has tachypnea, no tachycardia, is febrile, in mild respiratory distress, on 30 L 30%, she is uncomfortable laying down she would prefer sitting up, denies any lower extremity edema, no chest pain, flu was negative, COVID was negative, ER provider has ordered a CT angiogram of the chest, I had respiratory therapy ordered ABG to see if she needs BiPAP, order BMP, troponin series, she has been given Levaquin, will start on vancomycin, aztreonam, start breathing treatments, as she is in mild respiratory distress, however prefer for her to be monitored in the ICU for the next 24 hours, as she is also a person who vapes, and her last . No central pulmonary thromboembolism is appreciated. 2. There is diffuse heterogeneity and ground-glass attenuation overall throughout the hemithoraces with mid to lower lung distribution predominance. This could be seen with edema. Some superimposed processes including secondary as well as atypical inflammation could also present in this fashion with some patchy and slightly nodular coalescence for example adjacent to the left fissure. Would recommend comparison any previous older CT if clinically available versus follow-up after clinical therapy to evaluate for interval change or stability given the asymmetric nodular coalescence more so on the left. 3. There are abnormally enlarged mediastinal and hilar lymph nodes demonstrated overall throughout. Review of Systems Const: Reports: fever(s), fatigue and malaise ENMT: Denies: throat pain Card: Denies: chest pain Resp: Reports: dyspnea and productive cough GI: Denies: abdominal pain : Denies: flank pain Skin/Breast: Denies: rash Neuro: Denies: headache(s) Medications/Allergies Home Medications Medication Instructions Recorded Confirmed Last Taken Type amlodipine 10 mg tablet 10 mg PO DAILY@16 08/16/22 03/26/23 03/25/23 History hydroxyzine HCl 50 mg tablet 50 mg PO TID PRN Anxiety 08/16/22 03/26/23 Unknown History albuterol sulfate 90 mcg/actuation 1 inh inhalation Q6H PRN shortness 08/23/22 03/26/23 Unknown Rx aerosol inhaler (Ventolin HFA) of breath or wheezing #6.7 grams acetaminophen 500 mg tablet 1,000 mg PO Q6H PRN Pain 03/26/23 03/26/23 Unknown History budesonide-formoterol HFA 160 2 puff inhalation BID 03/26/23 03/26/23 03/26/23 History mcg-4.5 mcg/actuation aerosol inhaler (Symbicort) furosemide 40 mg tablet (Lasix) 40 mg PO QAM 03/26/23 03/26/23 03/26/23 History ibuprofen 200 mg tablet 600 - 800 mg PO Q6H PRN Pain 03/26/23 03/26/23 Unknown History methadone 40 mg soluble tablet 95 mg PO DAILY@05 03/26/23 03/26/23 03/26/23 History oseltamivir 75 mg capsule 75 mg PO BID 03/26/23 03/26/23 03/26/23 History potassium chloride 20 mEq 20 meq PO QAM 03/26/23 03/26/23 03/26/23 History tablet,extended release(part/cryst) (Klor-Con M) pravastatin 20 mg tablet 20 mg PO BEDTIME 03/26/23 03/26/23 03/25/23 History promethazine-DM 6.25 mg-15 mg/5 mL 5 ml PO Q4H PRN Cough 03/26/23 03/26/23 03/26/23 History oral syrup sertraline 100 mg tablet 100 mg PO DAILY@16 03/26/23 03/26/23 03/25/23 History Allergies Allergy/AdvReac Type Severity Reaction Status Date / Time Penicillins Allergy Intermediate ALGY-Anaphy Verified 03/26/23 16:08 laxis PFSH Acute PFSH: Medical History Elevated lactic acid level CHF (congestive heart failure) Opiate dependence Hypertension Surgical History No significant past surgical history Family History Other CAD (coronary artery disease) Social History Smoking and tobacco/nicotine status: current every day tobacco/nicotine user Alcohol intake: former Substance/Drug Use: unknown Vitals/I&O/Wt Last Vital Signs Temp 100.4 F H 03/26/23 13:59 Pulse 84 03/26/23 16:08 Resp 16 03/26/23 16:08 BP 141/80 03/26/23 16:08 Pulse Ox 95 03/26/23 16:08 O2 Del Method Nasal Cannula 03/26/23 13:59 O2 Flow Rate 30 03/26/23 15:47 FiO2 60 03/26/23 15:47 Weight last 48 hrs Weight 92.986 kg Physical Exam Const: COMMON NORMALS: no acute distress and patient oriented x3 HENMT: COMMON NORMALS: normocephalic HEAD & SCALP: normocephalic Eye: COMMON NORMALS: Equal, round and reactive pupils present and EOMs intact bilaterally Neck/C-Spine: COMMON NORMALS: full ROM and no lymphadenopathy Lymph: LYMPHATIC: no lymphadenopathy noted Resp: EFFORT & INSPECTION: Yes abnormal respiratory pattern, Yes tachypneic, Yes respiratory distress, Yes Actively coughing and Yes retractions AUSCULTATION: crackles and wheezes Cardio: COMMON NORMALS: regular rate, regular rhythm, S1 normal heart sound present and S2 normal heart sound present RATE: regular rate RHYTHM: regular rhythm HEART SOUNDS: S1 normal heart sound present and S2 normal heart sound present GI: COMMON NORMALS: Normal to inspection, nondistended, normoactive bowel sounds present, Soft to palpation and non-tender Extremity: COMMON NORMALS: no pedal edema Neuro: COMMON NORMALS: patient oriented x3, CN's II-XII intact bilaterally, moves all extremities and no focal motor deficits Psych: COMMON NORMALS: mental status grossly normal Data 03/26/23 15:50 03/26/23 15:50 Micro: Microbiology 03/26/23 15:50 Blood Culture - Preliminary Blood SPECIMEN COLLECTED 03/26/23 15:36 Blood Culture - Preliminary Blood SPECIMEN COLLECTED A&P Assessment and plan (1) Acute hypoxemic respiratory failure: (2) Lung injury due to vaping: (3) Pneumonia: Plan Acute hypoxic respiratory failure -Likely secondary to pneumonia, - Likely component of COPD ? Likely component of vape induced lung injury ? Some component related to obesity hypoventilation syndrome ? Plan ? Monitor in ICU closely ?monitor respiratory status closely ?Low threshold for intubation chronic ?continue vancomycin, aztreonam, Levaquin ? Respiratory viral panel -Sputum cultures ? Blood cultures ? Troponin series, BNP ? Pro-Jamie, CRP ? CT angiogram of the chest ? A1c 6.3, recheck A1c ? History of diastolic CHF, no significant evidence of fluid overload ? Full code, ? Lovenox for DVT prophylaxis Attestations Medical Necessity Statement*: Patient requires hospitalization for acute hypoxic respiratory failure secondary pneumonia, COPD, vape induced lung injury, obesity hypoventilation syndrome, due to mild to moderate respiratory distress requires ICU monitoring Diagnoses Acute hypoxemic respiratory failure J96.01 Lung injury due to vaping U07.0 Pneumonia J18.9
[2023-03-26 16:40] LABS: Alanine Aminotransferase 27 U/L (0-33); Albumin Level 3.1 g/dL (3.5-5.2); Alkaline Phosphatase 294 U/L (35-105); Aspartate Amino Transferase 57 U/L (0-32); Blood Urea Nitrogen 10 mg/dL (6-20); Calcium 8.6 mg/dL (8.5-10.5); Carbon Dioxide 26 mmol/L (22-29); Chloride 97 mmol/L (98-107); Creatinine Clr Calc Pharmacy 87.4894; Globulin 4.1 g/dL (1.3-4.6); Glomerular Filtration Rate 75.9 mL/min (90-130); Glucose 95 mg/dL (65-115); Osmolality Calculated 275 mOsm/kg (285-295); Sodium 133 mmol/L (136-145); Total Protein 7.2 g/dL (6.6-8.7)
[2023-03-26 16:41] LABS: INR 1.17 (0.8-1.2)
[2023-03-26 16:42] LABS: Troponin(5th) Baseline 21 ng/L (0-10)
[2023-03-26] MEDS: iohexol 350 mg/mL 500 mL Btl (per mL) IV (17:05)
--- NOTE | 2023-03-26 18:01 | PC.NURSE ---
Pt arrives to ICU fro ED. Pt alert and oriented, Room orientation, pain management, call light and TV orientation provided. Pt hyertensive and febrile. Pt SOB after bed transfer. Heated high flow applied,35 liters/40%.
--- NOTE | 2023-03-26 18:02 | ECG_ITS ---
[facility] Test Date: 2023-03-26 Pat Name: Lavern Allen Department: Room: ICU10 Gender: Female Area Representative: : 1975 Requested By: Attila Jo Order Number: [id number] Carson MD: Mario Alberot Ocampo M.D. Measurements Intervals [place] Rate: 81 P: 74 MS: 152 QRS: 33 QRSD: 114 T: 69 QT: 423 QTc: 493 Interpretive Statements SINUS RHYTHM MODERATE INTRAVENTRICULAR CONDUCTION DELAY [110+ ms QRS DURATION] NONSPECIFIC ST & T-WAVE ABNORMALITY Compared to ECG 03/26/2023 16:11:37 Intraventricular conduction delay now present T-wave abnormality still present Electronically Signed On 03-28-2023 10:54:08 COMPANY DOCTOR by Mario Alberto Ocampo M.D. [email or web address]/[id number]
[2023-03-26 18:38] LABS: Troponin 5 2HR 18.16 ng/L (0-10)
[2023-03-26 18:40] LABS: Troponin 5 2HR Delta -2.84 ABS# (0-10)
[2023-03-26 18:46] LABS: Chol HDL Ratio 3.27 mg/dL (0.0-4.40); Cholesterol 121 mg/dL (0-200); HDL Cholesterol 37 mg/dL (60-100); LDL Cholesterol Calculated 66 mg/dL (50-129); LDL HDL Ratio 1.78 RATIO (0.00-3.22); Triglycerides 91 mg/dL (0-150)
[2023-03-26] MEDS: aztreonam 1,000 MG in sodium chloride 0.9% (plus) 50 ML 100 MG IV (19:39)
[2023-03-26] MEDS: pantoprazole 40 mg SDV IVP (19:39)
[2023-03-26] MEDS: enoxaparin 40 mg/0.4 mL Syringe SUBCUT (19:40)
[2023-03-26] MEDS: ALPRAZolam 0.5 mg Tablet PO (20:19)
[2023-03-26] MEDS: sertraline 100 mg Tablet PO (20:19)
[2023-03-26] MEDS: atorvastatin 40 mg Tablet 20 MG PO (20:19)
[2023-03-26] MEDS: ipratropium-albuterol 3 mL Neb INHALATION (20:21)
[2023-03-26] MEDS: vancomycin 1,500 MG/300 ML PIGGYBACK 200 MG IV (20:22)
[2023-03-26 21:19] LABS: Estmated Average Glucose 128; Hemoglobin A1C 6.1 % (4.0-6.0)
[2023-03-26 21:37] LABS: Adenovirus Not Detected (NOT DETECT); Chlamydia Pneumoniae Not Detected (NOT DETECT); Coronavirus 229E,HKU1,NL63,OC4 Not Detected (NOT DETECT); Human Metapneumovirus Not Detected (NOT DETECT); Human Rhinovirus/Enterovirus Not Detected (NOT DETECT); Influenza A Not Detected (NOT DETECT); Influenza A H1 Not Detected (NOT DETECT); Influenza A H1-2009 Not Detected (NOT DETECT); Influenza A H3 Not Detected (NOT DETECT); Influenza B Not Detected (NOT DETECT); Mycoplasma Pneumoniae Not Detected (NOT DETECT); Parainfluenza Virus Type 1 Not Detected (NOT DETECT); Parainfluenza Virus Type 2 Not Detected (NOT DETECT); Parainfluenza Virus Type 3 Not Detected (NOT DETECT); Parainfluenza Virus Type 4 Not Detected (NOT DETECT); Respiratory Syncytial Virus A Not Detected (NOT DETECT); Respiratory Syncytial Virus B Not Detected (NOT DETECT); SARS-COV-2 Not Detected (NOT DETECT)
[2023-03-26 21:44] LABS: Troponin 5 6HR 15.11 ng/L (0-10)
[2023-03-26 21:45] LABS: Troponin 5 6HR Delta -5.89 ng/L (0-12)
--- NOTE | 2023-03-26 22:50 | ECG_ITS ---
[facility] Test Date: 2023-03-26 Pat Name: Lavern Allen Department: Room: ICU10 Gender: Female Tinware Lithograph Press Operator: MIRIAM: 1975 Requested By: Attila Jo Order Number: [id number] Carson MD: Mario Alberto Ocampo M.D. Measurements Intervals [place] Rate: 73 P: 66 [place]: 156 QRS: 52 QRSD: 114 T: 10 QT: 418 QTc: 462 Interpretive Statements SINUS RHYTHM MODERATE INTRAVENTRICULAR CONDUCTION DELAY [110+ ms QRS DURATION] NONSPECIFIC T-WAVE ABNORMALITY Compared to ECG 03/26/2023 18:14:28 No significant changes Electronically Signed On 03-28-2023 10:53:54 PLASTICS PATTERNMAKER by Mario Alberto Ocampo M.D. [id number]
[2023-03-27] VITALS (29 sets, daily range): BP systolic 102–158; BP diastolic 51–98; PULSE 63–91; RESP 11–21; TEMP 36.6–37.1; O2SAT 88–99
[2023-03-27] MEDS: ipratropium-albuterol 3 mL Neb INHALATION ×4 (01:54→20:06)
[2023-03-27 04:28] LABS: ABG PCO2 38.9 mmHg (35-45); ABG PH Result 7.47 (7.35-7.45); Arterial Blood Gas Hematocrit 41.1 % (37-47); Base Excess ABG 4.6 mmol/L (-2.0-2.0); Blood Gas Allen Test Pos; Blood Gas Operator Identificat CAK; Blood Gas Sample Site Radial, left; Blood Gas Sample Type Arterial; HCO3 ABG 28.5 mmol/L (22-26); Oxygen Device HAG; PO2 ABG 53.8 mmHg (80.0-100.0); PO2 FiO2 Ratio Arterial Blood 0
[2023-03-27] MEDS: aztreonam 1,000 MG in sodium chloride 0.9% (plus) 50 ML 100 MG IV ×2 (05:18→17:04)
[2023-03-27 06:09] LABS: Basophils % 0.1 %; Hematocrit 39.5 % (36-47); Lymphocytes # 2.1 10^3/uL (0.8-4.8); Lymphocytes % 24.4 %; Mean Corpuscular HGB Conc 34.7 g/dL (30-55); Mean Corpuscular Hemoglobin 30.1 pg (27-33); Mean Corpuscular Volume 86.8 fl (85-98); Monocytes # 0.3 10^3/uL (0.2-0.9); Monocytes % 3.2 %; Neutrophils # 6.03 10^3/uL (1.8-7.7); Neutrophils % 71.9 %; Nucleated Red Blood Cells % 0 %; Platelet Count 147 10^3/cmm (157-399); Red Blood Count 4.55 10^6/uL (3.85-5.65); Red Cell Distribution Width 13.7 % (12.1-15.1); White Blood Count 8.39 10^3/uL (3.29-11.43)
[2023-03-27] MEDS: methadone 10 mg Tablet 95 MG PO (06:29)
[2023-03-27 06:30] LABS: Alanine Aminotransferase 27 U/L (0-33); Alkaline Phosphatase 273 U/L (35-105); Anion Gap 15.1 (5-19); Aspartate Amino Transferase 46 U/L (0-32); Blood Urea Nitrogen 13 mg/dL (6-20); C Reactive Protein 192.4 mg/L (0.0-4.9); Calcium 8.8 mg/dL (8.5-10.5); Carbon Dioxide 25 mmol/L (22-29); Chloride 99 mmol/L (98-107); Globulin 4.3 g/dL (1.3-4.6); Glomerular Filtration Rate 88.6 mL/min (90-130); Glucose 145 mg/dL (65-115); Osmolality Calculated 285 mOsm/kg (285-295); Phosphorus 2.2 mg/dL (2.5-4.5); Potassium 3.1 mmol/L (3.5-5.1); Sodium 136 mmol/L (136-145); Total Bilirubin 0.7 mg/dL (0.15-1.2); Total Protein 7.3 g/dL (6.6-8.7)
[2023-03-27 06:43] LABS: NT Pro B Type Natriuretic Pept 277 pg/mL (0-125); Procalcitonin 0.45 ng/mL (0-0.5)
--- NOTE | 2023-03-27 07:00 | XRR_ITS ---
PROCEDURE INFORMATION: Exam: XR Chest Exam date and time: 03/27/2023 4:53 AM Age: 48 years old Clinical indication: Patient HX: F/u pneumonia; Additional info: SOB TECHNIQUE: Imaging protocol: Radiologic exam of the chest. Views: 1 view. COMPARISON: CT angio chest PE protcl [id number] 03/26/2023 4:55 PM FINDINGS: Lungs: Persistent extensive bilateral airspace opacities. Pleural spaces: Unremarkable. No pleural effusion. No pneumothorax. Heart/Mediastinum: Stable cardiomediastinal silhouette. Bones/joints: Unremarkable. XR/XR chest 1V portable [id number] IMPRESSION: Persistent extensive bilateral airspace opacities, corresponding to known multifocal pneumonia.
[2023-03-27] MEDS: methylPREDNISolone sod succ 40 mg/mL INJ IVP ×3 (09:04→23:10)
[2023-03-27] MEDS: vancomycin 1,500 MG/300 ML PIGGYBACK 200 MG IV ×2 (09:07→20:54)
[2023-03-27] MEDS: lidocaine 1% 5 ML in potassium chloride premix 100 ML 26.25 ML IV (09:23)
[2023-03-27] MEDS: hyDROXYzine 25 mg Capsule 50 MG PO (09:24)
--- NOTE | 2023-03-27 16:30 | PC.NURSE ---
Pt offered help to get out of bed to chair for evening meal. Pt refused to get up to chair at this time.
[2023-03-27] MEDS: enoxaparin 40 mg/0.4 mL Syringe SUBCUT (16:58)
[2023-03-27] MEDS: sertraline 100 mg Tablet PO (17:03)
[2023-03-27] MEDS: levofloxacin-dextrose 5 % 750 MG/150 ML PREMIX 100 MG IV (17:06)
--- NOTE | 2023-03-27 17:11 | P.PN_ITS ---
Subjective 2 Subjective: Patient was seen this morning, she sitting up in a chair, on 10 L, alert and awake, following all commands, does report shortness of breath, has a nonproductive cough, no fevers, no chills we discussed her chest and CT findings, with multifocal pneumonia, but I think that she does have a significant background of lung damage associate with vape induced lung injury, she needs to stop vaping, she is agreeable will continue steroids continue to monitor her as she is clinically improving we will move her to [facility], she is agreeable continue steroids continue antibiotics continue inpatient monitoring, PT OT Vitals/I&O/Wt Last Vital Signs Temp 98.4 F 03/27/23 12:00 Pulse 75 03/27/23 14:00 Resp 13 03/27/23 14:00 BP 158/72 03/27/23 14:00 Pulse Ox 95 03/27/23 14:00 O2 Del Method High Flow Nasal Cannula 03/27/23 14:00 O2 Flow Rate 8 03/27/23 14:00 FiO2 40 03/27/23 08:00 03/27/23 03/27/23 03/27/23 06:59 14:59 22:59 Intake Total 300 / 900 1200 / 1200 Output Total 1000 / 1000 Balance -700 / -100 1200 / 1200 Weight last 48 hrs Weight 94.982 kg Weight 95.98 kg Weight 92.986 kg Physical Exam 2 Const: COMMON NORMALS: no acute distress ORIENTATION/CONSCIOUSNESS: Yes awake, Yes oriented to person and Yes oriented to place Resp: COMMON NORMALS: normal respiratory effort, No retractions and No use of accessory muscles AUSCULTATION: crackles and wheezes Cardio: COMMON NORMALS: regular rate, regular rhythm, S1 normal heart sound present and S2 normal heart sound present RATE: regular rate RHYTHM: r egular rhythm HEART SOUNDS: S1 normal heart sound present and S2 normal heart sound present GI: COMMON NORMALS: Normal to inspection, nondistended, normoactive bowel sounds present and non-tender Extremity: COMMON NORMALS: no pedal edema Neuro: SENSORIUM/ORIENTATION: Yes oriented to person and Yes oriented to place Urinary Catheter Management: Leal: Cath Placed During This Visit: yes Reason for Continuing Indwelling Catheter: Accurate Measurement of Urinary Output in Critically Ill Patients Urinary Catheter Date of Insertion: 03/26/23 Urinary Catheter Time of Insertion: 16:46 Data 03/27/23 05:53 03/27/23 05:53 A&P Assessment and plan (1) Acute hypoxemic respiratory failure: (2) Lung injury due to vaping: (3) Pneumonia: Plan Acute hypoxic respiratory failure -Likely secondary to pneumonia, - Likely component of COPD ? Likely component of vape induced lung injury ? Some component related to obesity hypoventilation syndrome -on 10L ? Plan ? Monitor in ICU closely ?monitor respiratory status closely ?Low threshold for intubation chronic ?continue vancomycin, aztreonam, Levaquin ?coutinue solumedrol -Sputum cultures ? Blood cultures ? A1c 6.1, recheck A1c ? History of diastolic CHF, no significant evidence of fluid overload ? Full code, ? Lovenox for DVT prophylaxis Attestations 2 Medical Necessity Statement*: patient requires hospitalization for pna, vape induced lung injury Diagnoses Acute hypoxemic respiratory failure J96.01 Lung injury due to vaping U07.0 Pneumonia J18.9
[2023-03-27] MEDS: pantoprazole 40 mg SDV IVP (17:20)
--- NOTE | 2023-03-27 18:36 | PC.NURSE ---
Shift summary: Pt started the day off with heated high flow at 35L and 41%. She is now using a high flow NC at 8 lpm. Her lung sounds remains clear but very diminished. Noted pt takes shallow breaths on a regular basis and needs encouraged to take deep breaths. She does have IS and Acapella at bedside. She has initiated using them. She got out of bed to sit in chair from breakfast to after lunch, approx. 5 hours. She subsequently refused to get up to chair for lunch when offered. She is steady on her feet requiring only stand by to minimum assistance. She has ate most of her meals and has had several sodas this shift. No BM noted. She did have 675ml of urine output. She did received Vistaril for her anxiety earlier this shift. She was inquiring about Xanax that the physician had mentioned but did not start. Discussed that she already had this on the MAY and we should try this first anya. as it was her home medication. She denied taking Vistaril at home at that time. Later this evening she stated she did take it at home.
[2023-03-27] MEDS: atorvastatin 40 mg Tablet 20 MG PO (20:54)
[2023-03-27] MEDS: ALPRAZolam 0.5 mg Tablet PO (20:55)
[2023-03-27] MEDS: acetaminophen 325 mg Tablet 650 MG PO (21:03)
[2023-03-27 21:15] LABS: Glucose Point of Care 115 mg/dL (70-110)
[2023-03-28] VITALS (23 sets, daily range): BP systolic 106–142; BP diastolic 55–94; PULSE 67–97; RESP 12–18; TEMP 36.2–38; O2SAT 92–96
[2023-03-28] MEDS: ipratropium-albuterol 3 mL Neb INHALATION ×4 (01:54→20:11)
[2023-03-28 04:30] LABS: Basophils % 0.1 %; Hematocrit 39.8 % (36-47); Lymphocytes # 2.5 10^3/uL (0.8-4.8); Lymphocytes % 20.6 %; Mean Corpuscular HGB Conc 34.2 g/dL (30-55); Mean Corpuscular Volume 87.7 fl (85-98); Mean Platelet Volume 12.6 fL (7.4-10.4); Monocytes # 0.4 10^3/uL (0.2-0.9); Monocytes % 3.3 %; Neutrophils # 9.08 10^3/uL (1.8-7.7); Neutrophils % 75.6 %; Nucleated Red Blood Cells % 0 %; Platelet Count 150 10^3/cmm (157-399); Red Blood Count 4.54 10^6/uL (3.85-5.65); Red Cell Distribution Width 13.9 % (12.1-15.1); White Blood Count 12.01 10^3/uL (3.29-11.43)
[2023-03-28 04:58] LABS: Alanine Aminotransferase 29 U/L (0-33); Albumin Level 3.1 g/dL (3.5-5.2); Alkaline Phosphatase 272 U/L (35-105); Blood Urea Nitrogen 17 mg/dL (6-20); C Reactive Protein 75.6 mg/L (0.0-4.9); Calcium 8.9 mg/dL (8.5-10.5); Carbon Dioxide 24 mmol/L (22-29); Chloride 101 mmol/L (98-107); Globulin 3.7 g/dL (1.3-4.6); Glomerular Filtration Rate 88.6 mL/min (90-130); Glucose 105 mg/dL (65-115); Magnesium 2.1 mg/dL (1.7-2.3); Osmolality Calculated 290 mOsm/kg (285-295); Phosphorus 3.6 mg/dL (2.5-4.5); Sodium 139 mmol/L (136-145); Total Bilirubin 0.6 mg/dL (0.15-1.2); Total Protein 6.8 g/dL (6.6-8.7)
[2023-03-28 05:00] LABS: Anion Gap 17.9 (5-19); Aspartate Amino Transferase 60 U/L (0-32); Potassium 3.9 mmol/L (3.5-5.1)
[2023-03-28] MEDS: aztreonam 1,000 MG in sodium chloride 0.9% (plus) 50 ML 100 MG IV ×2 (05:00→17:02)
[2023-03-28] MEDS: methadone 10 mg Tablet 95 MG PO (05:01)
[2023-03-28 07:15] LABS: Vancomycin Trough 21.1 ug/mL (10-15)
[2023-03-28 07:25] LABS: NT Pro B Type Natriuretic Pept 307 pg/mL (0-125)
[2023-03-28 07:34] LABS: Glucose Point of Care 132 mg/dL (70-110)
[2023-03-28] MEDS: methylPREDNISolone sod succ 40 mg/mL INJ IVP ×3 (07:59→23:54)
[2023-03-28] MEDS: vancomycin 1,500 MG/300 ML PIGGYBACK 200 MG IV ×2 (08:00→21:11)
[2023-03-28] MEDS: ALPRAZolam 0.5 mg Tablet PO ×3 (09:23→21:09)
[2023-03-28 10:55] LABS: Glucose Point of Care 121 mg/dL (70-110)
--- NOTE | 2023-03-28 15:28 | P.PN_ITS ---
Subjective 2 Subjective: Patient was seen this morning, she tells me that she was anxious throughout the night, denies any fevers, chills, has a cough, has shortness of breath is on 7 L, Vitals/I&O/Wt Last Vital Signs Temp 98.0 F 03/28/23 11:36 Pulse 76 03/28/23 14:26 Resp 17 03/28/23 14:26 BP 106/63 03/28/23 12:00 Pulse Ox 95 03/28/23 14:26 O2 Del Method High Flow Nasal Cannula 03/28/23 14:26 O2 Flow Rate 6 03/28/23 14:26 FiO2 40 03/27/23 08:00 03/28/23 03/28/23 03/28/23 06:59 14:59 22:59 Intake Total 300 / 2600 885 / 885 Output Total 1125 / 1800 Balance -825 / 800 885 / 885 Weight last 48 hrs Weight 95.98 kg Weight 94.982 kg Weight 95.98 kg Physical Exam 2 Const: COMMON NORMALS: no acute distress and patient oriented x3 Resp: COMMON NORMALS: normal respiratory effort, No retractions and No use of accessory muscles AUSCULTATION: crackles and wheezes Cardio: COMMON NORMALS: regular rate, regular rhythm, S1 normal heart sound present and S2 normal heart sound present RATE: regular rate RHYTHM: r egular rhythm HEART SOUNDS: S1 normal heart sound present and S2 normal heart sound present GI: COMMON NORMALS: Normal to inspection, nondistended, normoactive bowel sounds present and non-tender Extremity: COMMON NORMALS: no pedal edema Neuro: COMMON NORMALS: patient oriented x3 Urinary Catheter Management: Leal: Cath Placed During This Visit: yes Reason for Continuing Indwelling Catheter: Accurate Measurement of Urinary Output in Critically Ill Patients Urinary Catheter Date of Insertion: 03/26/23 Urinary Catheter Time of Insertion: 16:46 Data 03/29/23 04:59 03/29/23 04:59 A&P Assessment and plan (1) Acute hypoxemic respiratory failure: (2) Lung injury due to vaping: (3) Pneumonia: Plan Acute hypoxic respiratory failure -Likely secondary to pneumonia, - Likely component of COPD ? Likely component of vape induced lung injury ? Some component related to obesity hypoventilation syndrome -on 10L ? Plan ? Monitor in ICU closely ?monitor respiratory status closely ?Low threshold for intubation chronic ?continue vancomycin, aztreonam, Levaquin ?coutinue solumedrol -alprazolam for anxiety -Sputum cultures ? Blood cultures ? A1c 6.1, recheck A1c ? History of diastolic CHF, no significant evidence of fluid overload ? Full code, ? Lovenox for DVT prophylaxis Attestations 2 Medical Necessity Statement*: Requires hospitalization for respiratory failure secondary to vape induced lung injury, multifocal pneumonia Diagnoses Acute hypoxemic respiratory failure J96.01 Lung injury due to vaping U07.0 Pneumonia J18.9
[2023-03-28] MEDS: sertraline 100 mg Tablet PO (15:34)
[2023-03-28] MEDS: levofloxacin-dextrose 5 % 750 MG/150 ML PREMIX 100 MG IV (15:34)
[2023-03-28 17:00] LABS: Glucose Point of Care 197 mg/dL (70-110)
[2023-03-28] MEDS: enoxaparin 40 mg/0.4 mL Syringe SUBCUT (17:02)
[2023-03-28] MEDS: FUROsemide 10 mg/mL SDV 4mL 40 MG IVP (17:02)
[2023-03-28] MEDS: pantoprazole 40 mg SDV IVP (17:02)
[2023-03-28 21:05] LABS: Glucose Point of Care 172 mg/dL (70-110)
[2023-03-28] MEDS: atorvastatin 40 mg Tablet 20 MG PO (21:09)
--- NOTE | 2023-03-28 23:05 | PC.NURSE ---
Report given to Yook. Patient transferred to [facility] room 255-1 via bed with PAUL Soto at bedside.
[2023-03-29] VITALS (13 sets, daily range): BP systolic 113–149; BP diastolic 63–83; PULSE 60–88; RESP 16–18; TEMP 36.5–37; O2SAT 91–97
[2023-03-29] MEDS: ipratropium-albuterol 3 mL Neb INHALATION ×4 (02:42→20:49)
[2023-03-29] MEDS: methadone 10 mg Tablet 95 MG PO (05:14)
[2023-03-29] MEDS: ALPRAZolam 0.5 mg Tablet PO ×3 (05:25→21:21)
[2023-03-29] MEDS: aztreonam 1,000 MG in sodium chloride 0.9% (plus) 50 ML 100 MG IV ×2 (05:26→18:25)
[2023-03-29 05:29] LABS: Basophils % 0.1 %; Hematocrit 36.4 % (36-47); Lymphocytes % 19.6 %; Mean Corpuscular HGB Conc 33.8 g/dL (30-55); Mean Corpuscular Volume 88.8 fl (85-98); Monocytes # 0.4 10^3/uL (0.2-0.9); Neutrophils # 7.87 10^3/uL (1.8-7.7); Neutrophils % 75.5 %; Nucleated Red Blood Cells % 0 %; Platelet Count 174 10^3/cmm (157-399); Red Cell Distribution Width 13.7 % (12.1-15.1); White Blood Count 10.42 10^3/uL (3.29-11.43)
[2023-03-29 05:53] LABS: Alanine Aminotransferase 27 U/L (0-33); Albumin Level 2.8 g/dL (3.5-5.2); Alkaline Phosphatase 258 U/L (35-105); Anion Gap 12.1 (5-19); Aspartate Amino Transferase 41 U/L (0-32); Blood Urea Nitrogen 15 mg/dL (6-20); C Reactive Protein 23.5 mg/L (0.0-4.9); Calcium 8.5 mg/dL (8.5-10.5); Carbon Dioxide 27 mmol/L (22-29); Chloride 105 mmol/L (98-107); Globulin 3.4 g/dL (1.3-4.6); Glomerular Filtration Rate 88.6 mL/min (90-130); Glucose 247 mg/dL (65-115); Osmolality Calculated 301 mOsm/kg (285-295); Phosphorus 2.4 mg/dL (2.5-4.5); Potassium 3.1 mmol/L (3.5-5.1); Sodium 141 mmol/L (136-145); Total Bilirubin 0.4 mg/dL (0.15-1.2); Total Protein 6.2 g/dL (6.6-8.7)
[2023-03-29 06:05] LABS: NT Pro B Type Natriuretic Pept 416 pg/mL (0-125); Procalcitonin 0.16 ng/mL (0-0.5)
[2023-03-29 06:36] LABS: Glucose Point of Care 177 mg/dL (70-110)
[2023-03-29] MEDS: vancomycin 1,500 MG/300 ML PIGGYBACK 200 MG IV ×2 (10:35→21:21)
[2023-03-29] MEDS: potassium chloride ER 20 mEq Tablet 40 MEQ PO (10:41)
[2023-03-29] MEDS: methylPREDNISolone sod succ 40 mg/mL INJ IVP (11:06)
[2023-03-29 11:27] LABS: Glucose Point of Care 148 mg/dL (70-110)
--- NOTE | 2023-03-29 14:30 | P.PN_ITS ---
Subjective 2 Subjective: This is progress note from 03/29/2023, patient was seen this morning, she is alert oriented x 3, follows all commands, she is currently on 5 L, does report shortness of breath with exertion, no fevers, no chills, she did diurese over 2 L yesterday Vitals/I&O/Wt Last Vital Signs Temp 98.4 F 03/29/23 11:11 Pulse 74 03/29/23 11:11 Resp 16 03/29/23 11:11 BP 122/70 03/29/23 11:11 Pulse Ox 93 03/29/23 11:11 O2 Del Method Nasal Cannula 03/29/23 11:11 O2 Flow Rate 5 03/29/23 11:11 FiO2 40 03/27/23 08:00 03/28/23 03/29/23 03/29/23 22:59 06:59 14:59 Intake Total 990 / 1875 50 / 1925 420 / 420 Output Total 1999 / 1999 800 / 2800 Balance -1010 / -125 -750 / -875 420 / 420 Weight last 48 hrs Weight 100.199 kg Weight 95.98 kg Physical Exam 2 Const: COMMON NORMALS: no acute distress and patient oriented x3 Resp: COMMON NORMALS: normal respiratory effort, No retractions and No use of accessory muscles AUSCULTATION: wheezes Cardio: COMMON NORMALS: regular rate, regular rhythm, S1 normal heart sound present and S2 normal heart sound present RATE: regular rate RHYTHM: r egular rhythm HEART SOUNDS: S1 normal heart sound present and S2 normal heart sound present GI: COMMON NORMALS: Normal to inspection, nondistended, normoactive bowel sounds present and non-tender Extremity: COMMON NORMALS: no pedal edema Neuro: COMMON NORMALS: patient oriented x3 Psych: COMMON NORMALS: mental status grossly normal Urinary Catheter Management: Leal: Cath Placed During This Visit: yes Reason for Continuing Indwelling Catheter: Acute Urinary Retention or Obstruction Urinary Catheter Date of Insertion: 03/26/23 Urinary Catheter Time of Insertion: 16:46 Data 03/29/23 04:59 03/29/23 04:59 Micro: Microbiology 03/26/23 15:50 Blood Culture - Preliminary Blood 03/26/23 15:36 Blood Culture - Preliminary Blood A&P Assessment and plan (1) Acute hypoxemic respiratory failure: (2) Lung injury due to vaping: (3) Pneumonia: Plan Acute hypoxic respiratory failure -Likely secondary to pneumonia, - Likely component of COPD ? Likely component of vape induced lung injury ? Some component related to obesity hypoventilation syndrome -on 10L ? Plan ? Moved to general medical floors ?monitor respiratory status closely ?continue vancomycin, aztreonam, Levaquin ?coutinue solumedrol -1 dose of Lasix today -alprazolam for anxiety -Sputum cultures ? Blood cultures ? History of diastolic CHF, dose Lasix today ? Full code, ? Lovenox for DVT prophylaxis Attestations 2 Medical Necessity Statement*: Patient requires hospitalization for acute hypoxic respiratory failure Diagnoses Acute hypoxemic respiratory failure J96.01 Lung injury due to vaping U07.0 Pneumonia J18.9
[2023-03-29] MEDS: predniSONE 20 mg Tablet 40 MG PO (15:25)
[2023-03-29] MEDS: sertraline 100 mg Tablet PO (15:25)
[2023-03-29] MEDS: FUROsemide 10 mg/mL SDV 2mL 20 MG IVP (15:25)
[2023-03-29 16:42] LABS: Glucose Point of Care 286 mg/dL (70-110)
[2023-03-29] MEDS: polyethylene glycol 3350 Pkt 17 gm PO (16:55)
[2023-03-29] MEDS: levofloxacin-dextrose 5 % 750 MG/150 ML PREMIX 100 MG IV (16:55)
--- NOTE | 2023-03-29 17:22 | PC.OT ---
Attempted OT Eval 03/29/23; will attempt at later time.
[2023-03-29] MEDS: enoxaparin 40 mg/0.4 mL Syringe SUBCUT (17:35)
[2023-03-29] MEDS: pantoprazole 40 mg SDV IVP (18:02)
[2023-03-29 21:08] LABS: Glucose Point of Care 208 mg/dL (70-110)
[2023-03-29] MEDS: atorvastatin 40 mg Tablet 20 MG PO (21:21)
[2023-03-30] VITALS (17 sets, daily range): BP systolic 130–179; BP diastolic 66–84; PULSE 59–75; RESP 16–18; TEMP 36.4–36.9; O2SAT 91–97
[2023-03-30] MEDS: ipratropium-albuterol 3 mL Neb INHALATION ×4 (03:00→20:56)
[2023-03-30 04:18] LABS: Basophils % 0.2 %; Hematocrit 37.5 % (36-47); Lymphocytes # 3.2 10^3/uL (0.8-4.8); Lymphocytes % 25.5 %; Mean Corpuscular HGB Conc 33.6 g/dL (30-55); Mean Corpuscular Hemoglobin 29.7 pg (27-33); Mean Corpuscular Volume 88.4 fl (85-98); Mean Platelet Volume 11.8 fL (7.4-10.4); Monocytes # 0.8 10^3/uL (0.2-0.9); Monocytes % 6.5 %; Neutrophils # 8.28 10^3/uL (1.8-7.7); Neutrophils % 66.9 %; Nucleated Red Blood Cells % 0 %; Platelet Count 178 10^3/cmm (157-399); Red Blood Count 4.24 10^6/uL (3.85-5.65); Red Cell Distribution Width 13.7 % (12.1-15.1); White Blood Count 12.37 10^3/uL (3.29-11.43)
[2023-03-30 04:40] LABS: Alanine Aminotransferase 33 U/L (0-33); Albumin Level 2.9 g/dL (3.5-5.2); Alkaline Phosphatase 224 U/L (35-105); Anion Gap 11.1 (5-19); Aspartate Amino Transferase 44 U/L (0-32); Blood Urea Nitrogen 12 mg/dL (6-20); Calcium 8.6 mg/dL (8.5-10.5); Carbon Dioxide 28 mmol/L (22-29); Chloride 105 mmol/L (98-107); Globulin 3.6 g/dL (1.3-4.6); Glomerular Filtration Rate 105.8 mL/min (90-130); Glucose 122 mg/dL (65-115); Magnesium 2.1 mg/dL (1.7-2.3); Osmolality Calculated 293 mOsm/kg (285-295); Phosphorus 2.8 mg/dL (2.5-4.5); Potassium 3.1 mmol/L (3.5-5.1); Sodium 141 mmol/L (136-145); Total Bilirubin 0.5 mg/dL (0.15-1.2); Total Protein 6.5 g/dL (6.6-8.7)
[2023-03-30] MEDS: aztreonam 1,000 MG in sodium chloride 0.9% (plus) 50 ML 100 MG IV ×2 (05:14→18:02)
[2023-03-30] MEDS: ALPRAZolam 0.5 mg Tablet PO ×3 (05:14→21:38)
[2023-03-30] MEDS: methadone 10 mg Tablet 95 MG PO (05:14)
[2023-03-30 06:45] LABS: Glucose Point of Care 104 mg/dL (70-110)
[2023-03-30] MEDS: potassium chloride ER 20 mEq Tablet 40 MEQ PO (09:45)
[2023-03-30] MEDS: polyethylene glycol 3350 Pkt 17 gm PO ×2 (09:45→17:09)
[2023-03-30] MEDS: predniSONE 20 mg Tablet 40 MG PO (09:45)
[2023-03-30] MEDS: vancomycin 1,500 MG/300 ML PIGGYBACK 200 MG IV (09:46)
[2023-03-30 10:54] LABS: Glucose Point of Care 127 mg/dL (70-110)
[2023-03-30] MEDS: sennosides-docusate Tablet 2 TAB PO ×2 (11:00→17:09)
--- NOTE | 2023-03-30 13:29 | P.PN_ITS ---
Subjective 2 Subjective: Patient was seen this morning, she complains that she has not had a bowel movement, no fevers, chills, no abdominal pain Vitals/I&O/Wt Last Vital Signs Temp 98.5 F 03/30/23 12:00 Pulse 72 03/30/23 12:00 Resp 18 03/30/23 12:00 BP 151/76 03/30/23 12:00 Pulse Ox 94 03/30/23 12:00 O2 Del Method Nasal Cannula 03/30/23 10:02 O2 Flow Rate 4 03/30/23 10:02 FiO2 40 03/27/23 08:00 03/29/23 03/30/23 03/30/23 22:59 06:59 14:59 Intake Total 860 / 1280 50 / 1330 1260 / 1260 Output Total 1780 / 1780 900 / 2680 Balance -920 / -500 -850 / -1350 1260 / 1260 Weight last 48 hrs Weight 103.419 kg Weight 100.199 kg Physical Exam 2 Const: COMMON NORMALS: no acute distress and patient oriented x3 Resp: COMMON NORMALS: normal respiratory effort, No retractions, No use of accessory muscles and clear to auscultation bilaterally AUSCULTATION: clear to auscultation bilaterally Cardio: COMMON NORMALS: regular rate, regular rhythm, S1 normal heart sound present and S2 normal heart sound present RATE: regular rate RHYTHM: r egular rhythm HEART SOUNDS: S1 normal heart sound present and S2 normal heart sound present GI: COMMON NORMALS: Normal to inspection, nondistended, normoactive bowel sounds present and non-tender Extremity: COMMON NORMALS: no pedal edema Neuro: COMMON NORMALS: patient oriented x3 Psych: COMMON NORMALS: mental status grossly normal Urinary Catheter Management: Leal: Cath Placed During This Visit: yes Reason for Continuing Indwelling Catheter: Other Urinary Catheter Date of Insertion: 03/26/23 Urinary Catheter Time of Insertion: 16:46 Data 03/30/23 03:38 03/30/23 03:38 Micro: Microbiology 03/26/23 15:50 Blood Culture - Preliminary Blood 03/26/23 15:36 Blood Culture - Preliminary Blood A&P Assessment and plan (1) Acute hypoxemic respiratory failure: (2) Lung injury due to vaping: (3) Pneumonia: Plan Acute hypoxic respiratory failure -Likely secondary to pneumonia, - Likely component of COPD ? Likely component of vape induced lung injury ? Some component related to obesity hypoventilation syndrome -on 4-5L ? Plan ? Moved to general medical floors ?monitor respiratory status closely ?continue vancomycin, aztreonam, Levaquin ?coutinue solumedrol -alprazolam for anxiety -Sputum cultures ? Blood cultures ? History of diastolic CHF, dose Lasix today ? Full code, ? Lovenox for DVT prophylaxis Attestations 2 Medical Necessity Statement*: Patient requires hospitalization for acute hypoxic respiratory failure secondary to COPD, vape abuse lung injury, pneumonia Diagnoses Acute hypoxemic respiratory failure J96.01 Lung injury due to vaping U07.0 Pneumonia J18.9
[2023-03-30] MEDS: sertraline 100 mg Tablet PO (16:37)
[2023-03-30] MEDS: levofloxacin-dextrose 5 % 750 MG/150 ML PREMIX 100 MG IV (16:37)
[2023-03-30] MEDS: pantoprazole 40 mg SDV IVP (16:41)
[2023-03-30 16:46] LABS: Glucose Point of Care 315 mg/dL (70-110)
[2023-03-30] MEDS: enoxaparin 40 mg/0.4 mL Syringe SUBCUT (17:09)
[2023-03-30 20:33] LABS: Vancomycin Trough 18.5 ug/mL (10-15)
[2023-03-30 20:34] LABS: Glucose Point of Care 179 mg/dL (70-110)
[2023-03-30] MEDS: atorvastatin 40 mg Tablet 20 MG PO (21:38)
--- NOTE | 2023-03-30 21:53 | PC.NURSE ---
Patient's IV went bad and she is refusing to let me start a new one. She was educated that she still is being treated with IV antibiotics but she states she is supposed to be discharged tomorrow so she doesn't want to be stuck for an IV again. Dr. Rodrigues notified.
[2023-03-31 04:00] VITALS: BP 159/91; PULSE 78; RESP 18; TEMP 36.7; O2SAT 96
[2023-03-31 04:55] LABS: Basophils % 0.1 %; Eosinophils # 0.1 10^3/uL (0.0-0.8); Eosinophils % 0.5 %; Hematocrit 37.8 % (36-47); Lymphocytes # 4.3 10^3/uL (0.8-4.8); Lymphocytes % 31.9 %; Mean Corpuscular HGB Conc 33.3 g/dL (30-55); Mean Corpuscular Hemoglobin 29.6 pg (27-33); Mean Corpuscular Volume 88.9 fl (85-98); Mean Platelet Volume 11.5 fL (7.4-10.4); Monocytes # 0.9 10^3/uL (0.2-0.9); Monocytes % 6.3 %; Neutrophils # 8.11 10^3/uL (1.8-7.7); Neutrophils % 59.8 %; Nucleated Red Blood Cells % 0 %; Platelet Count 189 10^3/cmm (157-399); Red Blood Count 4.25 10^6/uL (3.85-5.65); Red Cell Distribution Width 13.7 % (12.1-15.1); White Blood Count 13.56 10^3/uL (3.29-11.43)
[2023-03-31 05:15] LABS: Alanine Aminotransferase 39 U/L (0-33); Albumin Level 2.7 g/dL (3.5-5.2); Alkaline Phosphatase 210 U/L (35-105); Anion Gap 11.1 (5-19); Aspartate Amino Transferase 44 U/L (0-32); Blood Urea Nitrogen 11 mg/dL (6-20); Calcium 8.5 mg/dL (8.5-10.5); Carbon Dioxide 27 mmol/L (22-29); Chloride 108 mmol/L (98-107); Globulin 3.5 g/dL (1.3-4.6); Glomerular Filtration Rate 105.8 mL/min (90-130); Glucose 67 mg/dL (65-115); Magnesium 2.1 mg/dL (1.7-2.3); Osmolality Calculated 294 mOsm/kg (285-295); Phosphorus 2.8 mg/dL (2.5-4.5); Potassium 3.1 mmol/L (3.5-5.1); Sodium 143 mmol/L (136-145); Total Bilirubin 0.5 mg/dL (0.15-1.2); Total Protein 6.2 g/dL (6.6-8.7)
[2023-03-31 05:20] LABS: NT Pro B Type Natriuretic Pept 369 pg/mL (0-125)
[2023-03-31] MEDS: methadone 10 mg Tablet 95 MG PO (05:24)
[2023-03-31] MEDS: ALPRAZolam 0.5 mg Tablet PO (05:24)
[2023-03-31 06:00] VITALS: PULSE 68
[2023-03-31 06:37] LABS: Glucose Point of Care 71 mg/dL (70-110)
[2023-03-31 08:00] VITALS: BP 133/72; PULSE 67; PULSE 70; RESP 16; RESP 17; TEMP 36.8; O2SAT 95
[2023-03-31 08:22] VITALS: O2SAT 88; O2SAT 93
[2023-03-31] MEDS: ipratropium-albuterol 3 mL Neb INHALATION (08:42)
[2023-03-31 08:44] VITALS: PULSE 70; RESP 16; O2SAT 96
[2023-03-31] MEDS: potassium chloride ER 20 mEq Tablet 40 MEQ PO (09:11)
[2023-03-31] MEDS: polyethylene glycol 3350 Pkt 17 gm PO (09:11)
[2023-03-31] MEDS: predniSONE 20 mg Tablet 40 MG PO (09:12)
[2023-03-31] MEDS: sennosides-docusate Tablet 2 TAB PO (09:12)
--- NOTE | 2023-03-31 09:34 | PC.NURSE ---
Pt refuses an IV placement for IV antibiotics. Education provided and patient verbalized understanding. Dr. Jo made aware.
--- NOTE | 2023-03-31 11:01 | P.DS_ITS ---
Discharge Providers Date of Admission: 03/26/23 17:49 Date of Discharge: March 31, 2023 Attending Provider at Admission: Susan Gary MD Attending Provider at Discharge: Attila Jo MD Primary Care Provider: Kirsten Broussard MD Diagnoses at Discharge Discharge Diagnosis (1) Acute hypoxemic respiratory failure: Status: Acute (2) Lung injury due to vaping: Status: Acute (3) Pneumonia: Status: Acute Reason for Visit Reason for Visit: SOB Hospital Course Hospital Course Lavern Allen is a 48 year old female with a past medical history of obesity, history of smoking quit 8 months ago, current history of vaping, history of diastolic CHF, history of back pain on methadone, hypertension, who presents to [facility] due to fatigue, malaise, fevers, cough, shortness of breath with exertion now at rest, for the last 5 days. Patient tells me that she quit smoking over a months ago since she was discharged in the hospital and she had pneumonia then, she tells me she has picked up vaping, she vapes daily, she tells me for the last 5 days she has felt sick, fatigue, malaise, her family is did test positive for strep throat, she had cough, fevers, but significantly she started developing shortness of breath, with exertion with a few feet 10 no shortness of breath at rest, on examination when patient came to the emergency room, she was in respiratory distress, placed on 7 L, currently she is on a high needed high flow on 30 L 30%, has nasal flaring and short of breath with a few words, has intercostal retractions,, has tachypnea, no tachycardia, is febrile, in mild respiratory distress, on 30 L 30%, she is uncomfortable laying down she would prefer sitting up, denies any lower extremity edema, no chest pain, flu was negative, COVID was negative, ER provider has ordered a CT angiogram of the chest, I had respiratory therapy ordered ABG to see if she needs BiPAP, order BMP, troponin series, she has been given Levaquin, will start on vancomycin, aztreonam, start breathing treatments, as she is in mild respiratory distress, however prefer for her to be monitored in the ICU for the next 24 hours, CT angiogram of the chest . No central pulmonary thromboembolism is appreciated. 2. There is diffuse heterogeneity and ground-glass attenuation overall throughout the hemithoraces with mid to lower lung distribution predominance. This could be seen with edema. Some superimposed processes including secondary as well as atypical inflammation could also present in this fashion with some patchy and slightly nodular coalescence for example adjacent to the left fissure. Would recommend comparison any previous older CT if clinically available versus follow-up after clinical therapy to evaluate for interval change or stability given the asymmetric nodular coalescence more so on the left. 3. There are abnormally enlarged mediastinal and hilar lymph nodes demonstrated overall throughout. Patient was admitted to [facility] for acute hypoxic respiratory failure, with secondary multifocal pneumonia, with vape induced lung injury, component of COPD, component of obesity hypoventilation syndrome, monitor in ICU, transition from heated high flow to nasal cannula, maintain on broad- spectrum antibiotic therapy, work with PT OT, moved to general medical floors overall clinically improved, will be discharged on antibiotic therapy, Vashti, albuterol. I had extensive discussion with patient that I think that a significant portion of the changes seen on the CT angiogram, which were present on prior CT scan shows significant vape induced lung injury. She must quit vaping as it is associate with increased risk of morbidity mortality, she voiced understanding, all questions answered, will follow-up with Dr. Zee as outpatient. Due to her anxiety I discharged her on a short course of alprazolam 0.5 mg twice daily as needed, do not drive or drink or operate heavy machinery while taking medication, or take with other controlled substances such as methadone. Physical Exam Const: COMMON NORMALS: no acute distress and patient oriented x3 Resp: COMMON NORMALS: normal respiratory effort, No retractions, No use of accessory muscles and clear to auscultation bilaterally AUSCULTATION: clear to auscultation bilaterally Cardio: COMMON NORMALS: regular rate, regular rhythm, S1 normal heart sound present and S2 normal heart sound present RATE: regular rate RHYTHM: regular rhythm HEART SOUNDS: S1 normal heart sound present and S2 normal heart sound present GI: COMMON NORMALS: Normal to inspection, nondistended, normoactive bowel sounds present and non-tender Extremity: COMMON NORMALS: no pedal edema Neuro: COMMON NORMALS: patient oriented x3 Urinary Catheter Management: Leal: Cath Placed During This Visit: yes, but has since been removed by the nurse Reason for Continuing Indwelling Catheter: Decision to DC Catheter Urinary Catheter Date of Insertion: 03/26/23 Urinary Catheter Time of Insertion: 16:46 Date Urinary Catheter Removed: 03/30/23 Time Urinary Catheter Discontinued: 17:47 Discharge Data Studies Completed and Pending Completed Studies During Hospitalization Category Date Time Status CT angio chest PE protcl [id number] Stat Cat Scan 03/26/23 16:13 Completed XR chest 1V portable [id number] Routine Exams 03/27/23 07:00 Completed XR chest 1V portable [id number] Stat Exams 03/26/23 13:59 Completed Pending at discharge Category Date Time Status Blood Cultures ([facility]) Routine Lab 03/26/23 15:36 Results Blood Cultures ([facility]) Routine Lab 03/26/23 15:50 Results Complete Blood Count w/Auto AM LABS Lab 04/01/23 04:00 Ordered Comprehensive Metabolic Panel AM LABS Lab 04/01/23 04:00 Ordered Magnesium AM LABS Lab 04/01/23 04:00 Ordered NT Pro B Type Natriuretic Pept QAM Lab 04/01/23 06:00 Ordered NT Pro B Type Natriuretic Pept QAM Lab 04/02/23 06:00 Ordered Phosphorus AM LABS Lab 04/01/23 04:00 Ordered Sputum Culture and Gram Stain Stat Lab 03/26/23 15:17 Uncollected Radiology Impressions Chest CTA 03/26/23 16:13 IMPRESSION: Bilateral pneumonia. Chest X-Ray 03/27/23 07:00 IMPRESSION: Persistent extensive bilateral airspace opacities, corresponding to known multifocal pneumonia. Laboratory Results WBC 13.56 10^3/uL (3.29-11.43) H 03/31/23 04:20 Corrected WBC Cancelled 03/27/23 04:45 RBC 4.25 10^6/uL (3.85-5.65) 03/31/23 04:20 Hgb 12.60 g/dL (11.27-16.99) 03/31/23 04:20 Hct 37.8 % (36-47) 03/31/23 04:20 MCV 88.9 fl (85-98) 03/31/23 04:20 MCH 29.6 pg (27-33) 03/31/23 04:20 MCHC 33.3 g/dL (30-55) 03/31/23 04:20 RDW 13.7 % (12.1-15.1) 03/31/23 04:20 Plt Count 189 10^3/cmm (157-399) 03/31/23 04:20 MPV 11.5 fL (7.4-10.4) H 03/31/23 04:20 Gran % Cancelled 03/27/23 04:45 Neut % (Auto) 59.8 % 03/31/23 04:20 Lymph % (Auto) 31.9 % 03/31/23 04:20 [place] % (Auto) 6.3 % 03/31/23 04:20 Eos % (Auto) 0.5 % 03/31/23 04:20 Baso % (Auto) 0.1 % 03/31/23 04:20 Neut # (Auto) 8.11 10^3/uL (1.8-7.7) H 03/31/23 04:20 Lymph # (Auto) 4.3 10^3/uL (0.8-4.8) 03/31/23 04:20 [place] # (Auto) 0.9 10^3/uL (0.2-0.9) 03/31/23 04:20 Eos # (Auto) 0.1 10^3/uL (0.0-0.8) 03/31/23 04:20 Baso # (Auto) 0.0 10^3/uL (0.0-0.1) 03/31/23 04:20 Absolute Gran (auto) Cancelled 03/27/23 04:45 Nucleated RBC % (auto) 0 % 03/31/23 04:20 Nucleated RBCs # 0.0 /100WBC 03/31/23 04:20 PT 15.30 SECONDS (12.1-14.9) H 03/26/23 13:10 INR 1.17 (0.8-1.2) 03/26/23 13:10 D-Dimer 2.61 ug/mLFEU (0-0.59) H 03/26/23 15:50 Specimen Type Arterial 03/27/23 04:16 Sample Site Radial, left 03/27/23 04:16 ABG pH 7.47 (7.35-7.45) H 03/27/23 04:16 ABG pCO2 38.9 mmHg (35-45) 03/27/23 04:16 ABG pO2 53.8 mmHg (80.0-100.0) L 03/27/23 04:16 ABG PO2/FiO2 Ratio 0 03/27/23 04:16 ABG HCO3 28.5 mmol/L (22-26) H 03/27/23 04:16 ABG Base Excess 4.6 mmol/L (-2.0-2.0) H 03/27/23 04:16 Eugene Test Pos 03/27/23 04:16 Hematocrit 41.1 % (37-47) 03/27/23 04:16 O2 Delivery Device Hag 03/27/23 04:16 O2 Liters/Min 35.0 % 03/27/23 04:16 FiO2 40.0 % 03/27/23 04:16 Manager Express ID Cak 03/27/23 04:16 Sodium 143 mmol/L (136-145) 03/31/23 04:20 Potassium 3.1 mmol/L (3.5-5.1) L 03/31/23 04:20 Chloride 108 mmol/L (98-107) H 03/31/23 04:20 Carbon Dioxide 27 mmol/L (22-29) 03/31/23 04:20 Anion Gap 11.1 (5-19) 03/31/23 04:20 BUN 11 mg/dL (6-20) 03/31/23 04:20 Creatinine 0.6 mg/dL (0.5-0.9) 03/31/23 04:20 GFR Calculation 105.8 mL/min (90-130) 03/31/23 04:20 Glucose 67 mg/dL (65-115) 03/31/23 04:20 POC Glucose 71 mg/dL (70-110) 03/31/23 06:33 Estimat Average Glucose 128 03/26/23 18:10 Hemoglobin A1c 6.1 % (4.0-6.0) H 03/26/23 18:10 Calculated Osmolality 294 mOsm/kg (285-295) 03/31/23 04:20 Lactic Acid 1.5 mmol/L (0.5-2.2) 03/26/23 15:50 Calcium 8.5 mg/dL (8.5-10.5) 03/31/23 04:20 Phosphorus 2.8 mg/dL (2.5-4.5) 03/31/23 04:20 Magnesium 2.1 mg/dL (1.7-2.3) 03/31/23 04:20 Total Bilirubin 0.5 mg/dL (0.15-1.2) 03/31/23 04:20 AST 44 U/L (0-32) H 03/31/23 04:20 ALT 39 U/L (0-33) H 03/31/23 04:20 Alkaline Phosphatase 210 U/L (35-105) H 03/31/23 04:20 Troponin T Baseline 21 ng/L (0-10) H 03/26/23 15:50 Troponin T 120 Minute 18.16 ng/L (0-10) H 03/26/23 18:10 Delta Troponin T -2.84 ABS# (0-10) L 03/26/23 18:10 Troponin T Hi Sens 6Hr 15.11 ng/L (0-10) H 03/26/23 21:14 Troponin T Hi Sens 6Hr Delta -5.89 ng/L (0-12) L 03/26/23 21:14 C-Reactive Protein 23.5 mg/L (0.0-4.9) H 03/29/23 04:59 NT-Pro-B Natriuret Pep 369 pg/mL (0-125) H 03/31/23 04:20 Total Protein 6.2 g/dL (6.6-8.7) L 03/31/23 04:20 Albumin 2.7 g/dL (3.5-5.2) L 03/31/23 04:20 Globulin 3.5 g/dL (1.3-4.6) 03/31/23 04:20 Triglycerides 91 mg/dL (0-150) 03/26/23 18:10 Cholesterol 121 mg/dL (0-200) 03/26/23 18:10 LDL Cholesterol, Calc 66 mg/dL (50-129) 03/26/23 18:10 HDL Cholesterol 37 mg/dL (60-100) L 03/26/23 18:10 LDL/HDL Ratio 1.78 RATIO (0.00-3.22) 03/26/23 18:10 Cholesterol/HDL Ratio 3.27 mg/dL (0.0-4.40) 03/26/23 18:10 Procalcitonin 0.16 ng/mL (0-0.5) 03/29/23 04:59 TSH 0.91 uIU/mL (0.27-4.20) 03/26/23 15:50 Urine Color Light yellow (Yellow) 03/26/23 14:19 Urine Appearance Clear (CLEAR) 03/26/23 14:19 Urine pH 7 (5-7) 03/26/23 14:19 Ur Specific [place] 1.005 (1.005-1.030) 03/26/23 14:19 Urine Protein Neg (Negative) 03/26/23 14:19 Urine Glucose (UA) Norm (Normal) 03/26/23 14:19 Urine Ketones Negative (Negative) 03/26/23 14:19 Urine Blood Neg (Negative) 03/26/23 14:19 Urine Nitrate Negative (Negative) 03/26/23 14:19 Urine Bilirubin Neg (Negative) 03/26/23 14:19 Urine Urobilinogen Norm mg/dL (Negative) 03/26/23 14:19 Ur Leukocyte Esterase Negative (Negative) 03/26/23 14:19 Vancomycin Trough 18.5 ug/mL (10-15) H 03/30/23 20:08 Adenovirus (PCR) Not detected (NOT DETECT) 03/26/23 19:30 C. pneumoniae DNA (PCR) Not detected (NOT DETECT) 03/26/23 19:30 Coronavirus 229E (PCR) Not detected (NOT DETECT) 03/26/23 19:30 Human Metapneumovir PCR Not detected (NOT DETECT) 03/26/23 19:30 Influenza A (H1) PCR Not detected (NOT DETECT) 03/26/23 19:30 Influ A (H1/09) PCR Not detected (NOT DETECT) 03/26/23 19:30 Influenza A (H3) PCR Not detected (NOT DETECT) 03/26/23 19:30 Influenza Type A Ag negative (Negative) 03/26/23 14:19 Influenza Type A (PCR) Not detected (NOT DETECT) 03/26/23 19:30 Influenza Type B Ag negative (Negative) 03/26/23 14:19 Influenza Type B (PCR) Not detected (NOT DETECT) 03/26/23 19:30 M. pneumoniae (PCR) Not detected (NOT DETECT) 03/26/23 19:30 Parainfluenza 1 (PCR) Not detected (NOT DETECT) 03/26/23 19:30 Parainfluenza 2 (PCR) Not detected (NOT DETECT) 03/26/23 19:30 Parainfluenza 3 (PCR) Not detected (NOT DETECT) 03/26/23 19:30 Parainfluenza 4 (PCR) Not detected (NOT DETECT) 03/26/23 19:30 RSV Type A (PCR) Not detected (NOT DETECT) 03/26/23 19:30 RSV Type B (PCR) Not detected (NOT DETECT) 03/26/23 19:30 Entero/Rhino (PCR) Not detected (NOT DETECT) 03/26/23 19:30 SARS-CoV-2 (PCR) Not detected (NOT DETECT) 03/26/23 19:30 Vitals Last Vital Signs Temp 98.3 F 03/31/23 08:00 Pulse 70 03/31/23 08:44 Resp 16 03/31/23 08:44 BP 133/72 03/31/23 08:00 Pulse Ox 96 03/31/23 08:44 O2 Del Method Nasal Cannula 03/31/23 08:44 O2 Flow Rate 3 03/31/23 08:44 FiO2 40 03/27/23 08:00 Discharge Plan Discharge Patient Disposition: Home Condition: Stable Prescriptions: New prednisone 20 mg Tablet 40 mg PO DAILY 5 Days Qty: 10 0RF doxycycline hyclate 100 mg tablet 100 mg PO BID 5 Days Qty: 10 0RF Xanax 0.5 mg tablet 0.5 mg PO BID PRN (Reason: anxiety) 5 Days Qty: 10 0RF Continued hydroxyzine HCl 50 mg tablet 50 mg PO TID PRN (Reason: Anxiety) amlodipine 10 mg tablet 10 mg PO DAILY@16 promethazine-DM 6.25-15 mg/5 mL syrup 5 ml PO Q4H PRN (Reason: Cough) sertraline 100 mg tablet 100 mg PO DAILY@16 acetaminophen 500 mg Tablet 1,000 mg PO Q6H PRN (Reason: Pain) methadone 40 mg Tablet,Soluble 95 mg PO DAILY@05 pravastatin 20 mg tablet 20 mg PO BEDTIME Lasix 40 mg tablet 40 mg PO QAM Klor-Con M20 20 mEq tablet,ER particles/crystals 20 meq PO QAM Ventolin HFA 90 mcg/actuation HFA aerosol inhaler 1 inh inhalation Q6H PRN (Reason: shortness of breath or wheezing) Qty: 6.7 0RF Changed budesonide-formoterol 160-4.5 mcg/actuation HFA aerosol inhaler 1 puff INHALATION BID 30 Days Qty: 10.2 0RF Discontinued oseltamivir 75 mg capsule 75 mg PO BID Rx Instructions: for 5 days (rx filled 03/25/22) ibuprofen 200 mg Tablet 600 - 800 mg PO Q6H PRN (Reason: Pain) Discharge Orders: Discharge Order (Routine); Ordered 03/31/23 Ordered By: Attila Jo Other Ambulatory Orders: DME: Oxygen (Order) Location: None Selected Ordered By: Attila Jo DME: Walker (Order) Location: None Selected Ordered By: Attila Jo Referrals: DatarRoger MD [Physician] - 2 weeks (We have notified your physician's clinic of the need for a follow-up appointment to be scheduled. If you have not heard from them within the next 2 business days, please call them directly. ) Kirsten Broussard MD [Primary Care Provider] - 04/04/23 11:00 am Discharge Diet: Cardiac Discharge Activity: Resume usual activity Patient Instructions: Doxycycline (By mouth), Alprazolam (By mouth), Prednisone (By mouth), Using Oxygen at Home (GEN), Pneumonia (GEN), Opioid Safety Activity Restrictions/Additional Instructions: -please stop vaping Discharge Attestations Time Spent in Discharge Care*: greater than 30 min Quality Metrics Clinical Quality Measures [ No reported AMI, CVA or VTE this stay] Coding Level of Care Code 55439 Total time (in minutes) for Discharge: 45 Diagnoses Acute hypoxemic respiratory failure J96.01 Lung injury due to vaping U07.0 Pneumonia J18.9
[2023-03-31 11:06] LABS: Glucose Point of Care 97 mg/dL (70-110)
[2023-03-31 11:30] VITALS: BP 133/72; PULSE 70; RESP 16; TEMP 36.8; O2SAT 96
== END 2023-03-31 11:48 | disposition home or self-care (01) | DRG 193 ==
LOC: ER 14:08 → ICU 18:08 → MEDSURG 03-28 23:05
PROVIDERS: Internal Medicine; Admitting Provider Internal Medicine; Emergency Provider Family Medicine; PCP Family Medicine; Visit Provider Family Medicine
DX: J18.9 Pneumonia, unspecified organism (principal); J96.21 Acute and chronic respiratory failure with hypoxia; J96.22 Acute and chronic respiratory failure with hypercapnia; E66.2 Morbid (severe) obesity with alveolar hypoventilation; F11.20 Opioid dependence, uncomplicated; Z68.41 Body mass index [BMI] 40.0-44.9, adult; I50.32 Chronic diastolic (congestive) heart failure; I11.0 Hypertensive heart disease with heart failure; F17.290 Nicotine dependence, other tobacco product, uncomplicated; Z20.822 Contact with and (suspected) exposure to COVID-19; M54.9 Dorsalgia, unspecified; U07.0 Vaping-related disorder; J44.9 Chronic obstructive pulmonary disease, unspecified
CPT/HCPCS: 36415; 36416; 36600; 51702; 71045; 71275; 80053; 80061; 80202; 81003; 82803; 82962; 83036; 83605; 83735; 83880; 84100; 84145; 84443; 84484; 85025; 85378; 85610; 86140; 87040; 87486; 87581; 87633; 87635; 87804; 92610; 93005; 94640; 94664; 94760; 96372; 96376; 97110; 97116; 97161; 97165; 97530; 99285; C9113; J1100; J1650; J1940; J1956; J2920; J3370; J3480; J3490; J7512; Q3014; Q9967